=== PATIENT | female | born 1955 | race Caucasian/White ===

== ENCOUNTER 2020-03-06 02:56 | Inpatient (IN) | payer OTHER ==
[2020-03-06] MEDS ORDERED: PROPOFOL 20 ML ONE (03:06)
[2020-03-06 03:18] LABS: #Basophils 0.1 thou/uL (0.0-0.2); #Eosinphils 0.1 thou/uL (0.0-0.7); #Monocytes 0.6 thou/uL (0.11-0.59); #Neutrophils 13.2 thou/uL (1.40-6.50); %Basophils 0.5 % (0.0-1.0); %Eosinophils 0.7 % (0.0-10.0); %Lymphocytes 12.3 % (21.0-51.0); %Monocytes 3.6 % (0.0-10.0); %Neutrophils 82.9 % (42.0-75.0); Hemoglobin 12.3 g/dL (12.0-16.0); Mean Corpuscular HGB CONC 30.7 g/dL (32.0-36.0); Mean Corpuscular Hemoglobin 23.2 pg (27.0-31.0); Mean Corpuscular Volume 75.6 fL (78.0-98.0); Mean Platelet Volume 8.1 fL (7.4-10.4); Platelet Count 462 thou/uL (130-400); RBC Distribution Width 17.4 % (11.5-14.5); White Blood Cell (WBC) Count 15.9 thou/uL (4.8-10.8)
[2020-03-06 03:32] LABS: Actual Bicarbonate (HCO3a) 26.3 mEq/L (22-28); Analyzer IN Cardio ER; Base Excess (BEa) -3.3 mEq/L (-2.0 to +3.0); Calcium, Ionized 1.17 mmol/L (1.12-1.30); Carboxyhemoglobin (COHb) 1.8 gm% (0.0-3.0); Hemoglobin (Hb) 12.9 g/dL (12.0-16.0); O2 Tension (PaO2), arterial 84.9 mmHg (> 80.0); Potassium - ABG Lab 3.77 mmol/L (3.70-5.30)
[2020-03-06 03:33] LABS: ALT (SGPT) 33 U/L (8-55); AST (SGOT) 44 U/L (5-34); Albumin 3.6 g/dL (3.4-4.8); Alkaline Phosphatase 85 U/L (40-110); Anion Gap 18 mmol/L (10-20); BUN (Urea Nitrogen) 12 mg/dL (9.8-20.1); Bilirubin, Total 1.1 mg/dL (0.2-1.2); Calc. Creatinine Clearance 0 mL/min (70-130); Calcium 8.8 mg/dL (7.8-10.44); Carbon Dioxide 22 mmol/L (23-31); Chloride 97 mmol/L (98-107); Estimated GFR-MDRD 77; Globulin 3.3 g/dL (2.4-3.5); Glucose 297 mg/dL (80-115); Potassium 3.7 mmol/L (3.5-5.1); Protein, Total 6.9 g/dL (6.0-8.3); Sodium 133 mmol/L (136-145)
[2020-03-06 03:39] LABS: ALV-art Gradient 325.575 (0-20); CO2 Tension 70.9 mmHg (35.0-45.0); Puncture Site RRA; pH, Arterial 7.19 (7.35-7.45)
[2020-03-06] MEDS ORDERED: Furosemide 40 MG/4 ML VIAL ONE (03:47)
[2020-03-06] MEDS ORDERED: Nitroglycerin 2% Ointment 1 INCH/1 GM Packet ONE (03:47)
[2020-03-06] MEDS ORDERED: Aspirin 300 MG Suppository ONE (03:47)
[2020-03-06] MEDS ORDERED: Morphine 2 MG/ML SYRINGE SLOW IVP PRN ×3 (04:04→14:58)
[2020-03-06] MEDS ORDERED: cloNIDine 0.1 MG TAB PO PRN (04:04)
[2020-03-06] MEDS ORDERED: Ondansetron PF 4 MG/2 ML Vial IVP PRN (04:04)
[2020-03-06] MEDS ORDERED: hydrALAZINE 20 MG/ML VIAL SLOW IVP PRN (04:04)
[2020-03-06] MEDS ORDERED: Promethazine HCl 12.5 MG in Sodium Chloride 0.9% 50 ML IVPB PRN (04:04)
[2020-03-06] MEDS ORDERED: Labetalol HCl 100 MG/20 ML VIAL SLOW IVP PRN (04:04)
[2020-03-06] MEDS ORDERED: Acetaminophen 325 MG TAB PO PRN (04:05)
[2020-03-06] MEDS ORDERED: Bisacodyl 10 MG SUPP PR PRN (04:05)
[2020-03-06] MEDS ORDERED: HYDROcodone/Acetaminophen 5/325 mg Tablet PO PRN (04:05)
[2020-03-06] MEDS ORDERED: Bisacodyl 5 MG TAB PO PRN (04:05)
[2020-03-06] MEDS ORDERED: Senokot S 8.6-50 MG TAB PO PRN (04:05)
[2020-03-06] MEDS ORDERED: Insulin Regular 300 UNITS/3 ML VIAL SC PRN (04:07)
[2020-03-06] MEDS ORDERED: CCU Electrolyte Replacement 1 EACH IVPB ONE (04:07)
[2020-03-06] MEDS ORDERED: Milk Of Magnesia 30 ML UDCUP PO PRN (04:07)
[2020-03-06] MEDS ORDERED: Norepinephrine 8 MG/0.9% NS 250 ML IVPB PRN (04:07)
[2020-03-06] MEDS ORDERED: Mag-Al 1200 mg/1200 mg/30 ML UDCUP PO PRN (04:07)
--- NOTE | 2020-03-06 04:11 | PDOC.HHP ---
Hospitalist HPI - History of Present Illness Respiratory failure History of Present Illness: Patient is a 64 year old female with PMH HTN, DM, COPD who presented to ED via EMS for shortness of breath which began appx 30-60 minutes before arrival. On arrival, EMS found her in respiratory distress in tripod position and intubated her, saturations were in low 70s. In ED, ABG w/ hypercapneia, lung auscultation w/ prolonged expiratory phase and wheezing, patient sats improved however and BP /HR wnl. She had some pedal edema, no history of heart failure, tni elevated, given asa, lasix. Initial temperature 95.7, leukocytosis noted as well. Patient has had no fever, cough, or COVID exposure. CXR consistent with CHF and pulmonary edema, BNP is elevated, and her troponin is elevated. Patient given Lasix and Nitropaste as well as rectal aspirin. Patient admitted to CCU for presumed COPD/CHF exacerbation with possible infectious underlying etiology. Hospitalist ROS - Review of Systems ROS unobtainable: due to endotracheal tube Hospitalist History - Past Medical History Other Medical History: DM HTN COPD - Past Surgical History Other Surgical History: unable to ascertain at this time due to intubated status - Family History Other Family History: unable to ascertain at this time due to intubated status - Social History Other Social History: unable to ascertain at this time due to intubated status - Exam General - other findings: intubated, sedated Eye: PERRL, anicteric sclera ENT: normocephalic atraumatic, no oropharyngeal lesions, moist mucosa ENT - other findings: et tube in place Neck: supple, no JVD Heart: RRR, no murmur, no gallops, no rubs Respiratory: wheezes Respiratory - other findings: prolonged expiratory phase Gastrointestinal: soft, non-tender, non-distended, normal bowel sounds, no palpable masses Extremities: no cyanosis, no clubbing, 2+ LE edema Skin: normal turgor, no lesions, no rashes Neurological - other findings: unable to evaluate Musculoskeletal: normal tone, no muscle wasting Psychiatric - other findings: unable to evaluate Hospitalist Results - Labs Result Diagrams: 03/06/20 03:06 03/06/20 03:06 Lab results: WBC 15.9 thou/uL (4.8-10.8) H 03/06/20 03:06 Hgb 12.3 g/dL (12.0-16.0) 03/06/20 03:06 Hct 40.0 % (36.0-47.0) 03/06/20 03:06 MCV 75.6 fL (78.0-98.0) L 03/06/20 03:06 Plt Count 462 thou/uL (130-400) H 03/06/20 03:06 Neutrophils % 82.9 % (42.0-75.0) H 03/06/20 03:06 ABG pH 7.19 (7.35-7.45) L* 03/06/20 03:13 ABG pCO2 70.9 mmHg (35.0-45.0) H* 03/06/20 03:13 ABG pO2 84.9 mmHg (> 80.0) H 03/06/20 03:13 Sodium 133 mmol/L (136-145) L 03/06/20 03:06 Potassium 3.7 mmol/L (3.5-5.1) 03/06/20 03:06 Chloride 97 mmol/L (98-107) L 03/06/20 03:06 Carbon Dioxide 22 mmol/L (23-31) L 03/06/20 03:06 BUN 12 mg/dL (9.8-20.1) 03/06/20 03:06 Creatinine 0.76 mg/dL (0.6-1.1) 03/06/20 03:06 Glucose 297 mg/dL (80-115) H 03/06/20 03:06 Lactic Acid 1.6 mmol/L (0.5-2.2) 03/06/20 03:06 Calcium 8.8 mg/dL (7.8-10.44) 03/06/20 03:06 Total Bilirubin 1.1 mg/dL (0.2-1.2) 03/06/20 03:06 AST 44 U/L (5-34) H 03/06/20 03:06 ALT 33 U/L (8-55) 03/06/20 03:06 Alkaline Phosphatase 85 U/L (40-110) 03/06/20 03:06 Troponin I 0.092 ng/mL (< 0.028) H 03/06/20 03:06 B-Natriuretic Peptide 1216.5 pg/mL (0-100) H 03/06/20 03:06 Serum Total Protein 6.9 g/dL (6.0-8.3) 03/06/20 03:06 Albumin 3.6 g/dL (3.4-4.8) 03/06/20 03:06 - EKG Interpretation EKG: rate 105, sinus tachycardia, nonspecific t wave changes and iv block, PVCs noted Hospitalist H&P A/P - Plan Plan: 64F admitted for: # acute hypoxic and hypercapneic respiratory failure # COPD exacerbation # acute CHF - admit to CCU, consult pulmonary, sedation protocol - start scheduled/prn neb treatments, antibiotics empiric and IV steroids - trend troponin, continue aspirin and statin/beta luanne, echo ordered as well , consider cardiology consult if significant abnormalities - follow final CTa chest report. DVT ppx dose lovenox for now # DM w/ hyperglycemia - SSI, resume home meds as appropriate once extubated # HTN - PRN medications in chart # elevated troponin - trend, treat as above, continue aSA/statin, hold beta luanne for acute chf # hypothermia, sepsis - presume respiratory etiology, follow UA, will order blood cultures, empiric azithromycin and ceftraixone ordered 55 minutes critical care time
[2020-03-06] MEDS ORDERED: Dextrose 5% in Water 1,000 ML IV PRN (04:13)
[2020-03-06] MEDS ORDERED: Dextrose 50% Abboject 50 ML SYRINGE SLOW IVP PRN (04:13)
[2020-03-06 04:14] LABS: CKMB 7.5 ng/mL (0-6.6)
[2020-03-06] MEDS ORDERED: Azithromycin 500 MG in Syringe 0 ML IVPB SCH (04:15)
[2020-03-06] MEDS ORDERED: Ventilator Sedation Protocol 1 EACH FS SCH (04:15)
[2020-03-06] MEDS ORDERED: Furosemide 40 MG/4 ML VIAL SLOW IVP SCH (04:15)
[2020-03-06] MEDS ORDERED: Fentanyl BOLUS 250 ML IVPB PRN (04:16)
[2020-03-06] MEDS ORDERED: Propofol BOLUS 1,000 MG/100 ML VIAL IV PRN (04:16)
[2020-03-06] MEDS ORDERED: DISCONTINUE PREVIOUS NARCOTIC PAIN MEDICATIONS AND BENZODIAZEPINES FS SCH (04:17)
[2020-03-06] MEDS ORDERED: CCU ELECTROLYTE REPLACEMENT PROTOCOL FS PRN (04:18)
[2020-03-06] MEDS ORDERED: Potassium Phosphate 15 MMOL in Sodium Chloride 0.9% 250 ML 250 ML IV PRN (04:18)
[2020-03-06] MEDS ORDERED: Potassium Phosphate 9 MMOL in Sodium Chloride 0.9% 100 ML IVPB PRN (04:18)
[2020-03-06] MEDS ORDERED: Magnesium 2 GM/50 ML 2 GM in Premix Bag 1 BAG IVPB PRN (04:18)
[2020-03-06] MEDS ORDERED: Magnesium Oxide 400 MG TAB PO PRN ×2 (04:18)
[2020-03-06] MEDS ORDERED: Potassium Chloride 20 MEQ TAB PO PRN (04:18)
[2020-03-06] MEDS ORDERED: PHOS-NAK 1 PKT PACK PO PRN ×2 (04:18)
[2020-03-06] MEDS ORDERED: Potassium Chloride 40 MEQ in Sodium Chloride 0.9% 250 ML 250 ML IVPB PRN (04:18)
[2020-03-06] MEDS ORDERED: Potassium Chloride 40 MEQ in Premix Bag 1 BAG IVPB PRN (04:18)
[2020-03-06] MEDS ORDERED: Potassium Phosphate 12 MMOL in Sodium Chloride 0.9% 250 ML 250 ML IV PRN (04:18)
[2020-03-06] MEDS ORDERED: Ketamine 50 MG/ML (10ML VIAL) ONE (04:29)
[2020-03-06 04:35] LABS: Bacteria/HPF None Seen HPF (None Seen); Bilirubin Negative (Negative); Blood, Urine 1+ (Negative); Clarity Turbid (Clear); Glucose, Urine (Dipstick) 500 mg/dL (Negative); Leukocyte Negative Leu/uL (Negative); Nitrite Negative (Negative); Protein, Urine (Dipstick) 200 mg/dL (Neg-Trace); Squamous Epithelial 0-3 HPF (0-3)
[2020-03-06] MEDS: Propofol 1,000 MG/100 ML VIAL IV PRN (04:59)
[2020-03-06] MEDS: cefTRIAXone\\ROCEPHIN 1 GM in Sodium Chloride 0.9% 100 ML IVPB SCH (05:03)
[2020-03-06] MEDS: HumaLOG 300 UNITS/3 ML VIAL SC PRN ×4 (06:00→21:14)
[2020-03-06] MEDS: Furosemide 20 MG/2 ML VIAL SLOW IVP SCH ×2 (06:00→14:04)
[2020-03-06] MEDS: methylPREDNISolone Sod Succ/PF 125 MG/2 ML VIAL IVP SCH ×3 (06:00→21:14)
[2020-03-06] MEDS: Azithromycin 500 MG in Sodium Chloride 0.9% 250 ML 250 ML IVPB SCH (06:12)
[2020-03-06] MEDS: Lorazepam 2 MG/ML VIAL SLOW IVP PRN ×4 (06:39→14:28)
--- NOTE | 2020-03-06 07:44 | RAD ---
EXAM: CHEST ONE VIEW HISTORY: Dyspnea. COMPARISON: 02/22/2007 FINDINGS: endotracheal tube is noted in place with tip overlying the T4 vertebral body and above the level of t he katlyn. Nasogastric tube noted in place which courses into the left upper quadrant. Bibasilar pleural and parenchymal lung changes are seen greater at the right lung base which may be related to bilateral pleural effusions and atelectasis. However, superimposed pneumonia at the right lung base is a possibility. Oval-shaped opacity is seen in the region of the right midlung zone which may repre sent pseudotumor due to fluid in the region of the major fissure. Linear densities are seen in the left midlung zone probably attributable to atelectasis. Right cardiac border is obscured, but the car diac silhouette does appear enlarged. Osseous structures have a normal appearance. IMPRESSION: 1. Bibasilar pleural and parenchymal lung changes greater at the right lung base likely attributable to bilateral pleural effusions and atelectasis. However, superimposed infiltrate/pneumonia right lung base is a possibility. 2. Cardiomegaly. 3. Endotracheal tube and nasogastric tube noted in place.
--- NOTE | 2020-03-06 07:53 | CT ---
PRELIMINARY REPORT/[facility]/EMERGENCY AFTER HOURS PROCEDURE PROCEDURE: CTA Chest with IV Contrast Material . HISTORY: Dyspnea. TECHNIQUE: Axial images were performed with multiplanar and 3-D (maximum intensity projection and justo face-shaded) reconstructions. The patient was given iodinated nonionic IV contrast . COMPARISON: None . FINDINGS: Mild atherosclerosis aorta with no aneurysm or dissection. No evidence of pulmonary embolus . Scattered prominent mediastinal and hilar lymph nodes bilaterally. Endotracheal and NG tube in keya ce. Heart size upper limits of normal with no pericardial fluid. Dense consolidation RIGHT lower midd le lobe consistent with pneumonia. Mild consolidation LEFT lower lobe with some atelectasis. Small bilateral pleural effusions and fluid in the major fissure on the RIGHT. No pulmonary masses. Visual ized upper abdomen shows no significant abnormality. No acute bony abnormality. IMPRESSION: No pulmonary embolus or aortic dissection. Mild mediastinal and hilar lymphadenopathy. He art size upper limits of normal. Bilateral pneumonia greatest on the RIGHT with bilateral pleural eff usions. ELECTRONICALLY SIGNED BY: Isidro Murphy MD March 06, 2020 5:09:26 AM CDT FINAL REPORT CT PULMONARY ANGIOGRAM WITH IV CONTRAST AND 3D POSTPROCESSING: I agree with the preliminary report given by Dr. Isidro Murphy of [facility]. POS: TANIA
[2020-03-06 08:07] LABS: Actual Bicarbonate (HCO3a) 27.7 mEq/L (22-28); Base Excess (BEa) -0.4 mEq/L (-2.0 to +3.0); CO2 Tension 62.8 mmHg (35.0-45.0); O2 Tension (PaO2), arterial 66.4 mmHg (> 80.0); pH, Arterial 7.26 (7.35-7.45)
[2020-03-06 08:08] LABS: Calcium, Ionized 1.14 mmol/L (1.12-1.30); Carboxyhemoglobin (COHb) 2.2 gm% (0.0-3.0); Hemoglobin (Hb) 12.2 g/dL (12.0-16.0)
[2020-03-06 08:09] LABS: Puncture Site LRA
[2020-03-06] MEDS ORDERED: Enoxaparin Sodium 40 MG/0.4 ML SYRINGE SC SCH (09:00)
[2020-03-06] MEDS ORDERED: Aspirin 300 MG Suppository PR SCH (09:00)
--- NOTE | 2020-03-06 09:12 | CON ---
DATE OF CONSULTATION: 03/06/2020 CONSULTING PHYSICIAN: Dr. Olson. REASON FOR CONSULTATION: Respiratory failure related to pneumonia. HISTORY OF PRESENT ILLNESS: History of present illness what I have is obtained from reviewing her records as the patient is currently intubated, cannot give me a history. She is 64 years old. She presented to the emergency room with shortness of breath earlier this morning. She was intubated for hypoxemia. She was found to have bilateral pneumonia and pulmonary physiology consistent with COPD exacerbation. She was not initially isolated for COVID, but I have taken the steps to do that and they ordered the test to rule her out since she has bilateral pneumonia. PAST MEDICAL HISTORY: 1. Diabetes mellitus. 2. Hypertension. 3. COPD. PAST SURGICAL HISTORY: Not known. FAMILY MEDICAL HISTORY: Not known. SOCIAL HISTORY: Assume that she is a smoker in the past, although that has not been confirmed. MEDICATIONS: Prior to admission; 1. Aspirin 81 mg daily. 2. Flexeril 10 mg daily. 3. Norvasc 10 mg daily. 4. Xanax 0.5 mg every night as needed. 5. Metformin 500 mg daily. 6. Hydrochlorothiazide 25 mg daily. 7. Glipizide XL 5 mg daily. REVIEW OF SYSTEMS: Cannot be obtained as she is currently on mechanical ventilation. PHYSICAL EXAMINATION: VITAL SIGNS: Her temperature is 96.0, pulse 79, blood pressure 96/61, O2 saturation 95%. GENERAL: She is a disheveled-appearing female, who is currently intubated and sedated. HEENT: Pupils are 2 mm and reactive to light. Sclerae anicteric. Oropharynx, ET tube in place. NECK: No adenopathy or JVD. LUNGS: She has bilateral tight expiratory wheezing. She has crackles in the bases. CARDIOVASCULAR: S1, S2. Regular without audible murmur. ABDOMEN: Soft, obese, nontender, and nondistended. EXTREMITIES: No clubbing, cyanosis, or edema. NEUROLOGIC: Difficult to ascertain because she is sedated and is not moving to stimulation. LABORATORY DATA: Sodium 133, potassium 3.7, chloride 97, CO2 of 22, BUN 12, creatinine 0.7, glucose 297. Troponin 0.92. Lactate 1.6. BNP 1216. ABG; pH 7.26, pCO2 of 63, pO2 of 66, on SIMV rate 18, tidal volume 455, pressure support of 10, and FiO2 of 60%. White blood cell count 15.9, hematocrit 40, and platelet count 462 with a left shift. D-dimer was 2.09. IMAGING DATA: CT of the chest demonstrates bilateral small pleural effusions, she has dense pneumonia on the right, she has some pneumonia on the left. She had no evidence of thromboembolic disease. ASSESSMENT: This patient is presenting with bilateral pneumonia along with respiratory failure. She also is clearly having bronchospasm and COPD exacerbation. Her elevated BNP suggest concurrent heart failure. RECOMMENDATION: 1. Given the appearance of bilateral pneumonia and respiratory failure with severe hypoxemia, she does need to be ruled out for COVID-19 infection, therefore that test will be sent. 2. Steroids, nebulization treatments, antibiotics. 3. I have adjusted her ventilator parameters. We will follow. Job ID: [id number]
[2020-03-06] MEDS ORDERED: Iopamidol 370 76% 100 ML VIAL ONE (09:48)
[2020-03-06 13:35] LABS: Troponin I 0.222 ng/mL (< 0.028)
[2020-03-06 13:49] LABS: Actual Bicarbonate (HCO3a) 29.3 mEq/L (22-28); Base Excess (BEa) 1.7 mEq/L (-2.0 to +3.0); Calcium, Ionized 1.16 mmol/L (1.12-1.30); Carboxyhemoglobin (COHb) 1.3 gm% (0.0-3.0); Hemoglobin (Hb) 11.7 g/dL (12.0-16.0); O2 Tension (PaO2), arterial 77.3 mmHg (> 80.0); Potassium - ABG Lab 4.33 mmol/L (3.70-5.30)
[2020-03-06 13:52] LABS: ALV-art Gradient 380.825 (0-20); CO2 Tension 61.3 mmHg (35.0-45.0); Puncture Site LRA
[2020-03-06] MEDS: Vecuronium 10 MG VIAL IVP PRN ×4 (15:36→22:10)
[2020-03-06] MEDS: fentaNYL Citrate/PF 2,000 MCG in Sodium Chloride 0.9% 60 ML IV SCH (17:05)
[2020-03-06 18:34] LABS: Troponin I 0.306 ng/mL (< 0.028)
[2020-03-06 18:35] LABS: SARS-CoV-2 MS2 Positive; SARS-CoV-2 N Gene Negative; SARS-CoV-2 S Gene Negative; SARS-CoV-2 orf1ab Negative
--- NOTE | 2020-03-06 19:31 | PDOC.EVN ---
Event Note - Event Note Event Note: Patient is intubated. Sedation weaning was attempted but patient did not tolerate it per nursing staff. She had an episode of bronchospasm and tachycardia which improved after receiving albuterol through the ventilator. SHe does have edema per nursing and got lasix Not examined earlier since COVID was pending Gen: intubated, sedated CVS: tachycardic Lungs: wheezing per nursing Abd: not distended EXt: 1+ edemea Labs: WBC 15 Sodium 133 Troponin: up to 0.3 Glucose > 200 Xray: bilateral pneumonia This is 64 year old female who presents with respiratory failure requiring intubation Acute hypoxic respiratory failure secondary to bilateral pneumonia vs heart failure vs COPD exacerbation - chest Xray showing bilateral pneumonia. COVID 19 negative. - continue ceftriaxone and azithromycin - troponin trending up 0.306. - ECHO Shows EF 35-40% with inferolateral wall hypokinesis. Continue IV lasix. Repeat EKG - continue IV steroids - cardiology consult - will add therapeutic lovenox Hyponatremia - soduim 133, will continue to monitor DVT prophylaxis: lovenox Code status: full code
[2020-03-06] MEDS ORDERED: Enoxaparin Sodium 100 MG/ML SYRINGE SC SCH (21:00)
[2020-03-06] MEDS: Atorvastatin Calcium 40 MG TAB PO SCH (21:13)
[2020-03-06] MEDS: Insulin Glargine 7 UNITS in Pre-Filled Syringe SC SCH (21:13)
[2020-03-07] MEDS: Vecuronium 10 MG VIAL IVP PRN ×2 (00:49→06:10)
[2020-03-07 03:58] LABS: #Lymphocytes 0.8 thou/uL (1.20-3.40); #Monocytes 0.3 thou/uL (0.11-0.59); #Neutrophils 8.5 thou/uL (1.40-6.50); %Basophils 0.2 % (0.0-1.0); %Monocytes 2.7 % (0.0-10.0); Hemoglobin 10.9 g/dL (12.0-16.0); Mean Corpuscular HGB CONC 31.3 g/dL (32.0-36.0); Mean Corpuscular Hemoglobin 23.3 pg (27.0-31.0); Mean Corpuscular Volume 74.4 fL (78.0-98.0); Mean Platelet Volume 8.4 fL (7.4-10.4); Platelet Count 415 thou/uL (130-400); RBC Distribution Width 17.1 % (11.5-14.5); Red Blood Cell (RBC) Count 4.69 mill/uL (4.20-5.40); White Blood Cell (WBC) Count 9.6 thou/uL (4.8-10.8)
[2020-03-07] MEDS: cefTRIAXone\\ROCEPHIN 1 GM in Sodium Chloride 0.9% 100 ML IVPB SCH (04:19)
[2020-03-07 04:20] LABS: Anion Gap 18 mmol/L (10-20); Calc. Creatinine Clearance 69 mL/min (70-130); Calcium 8.8 mg/dL (7.8-10.44); Carbon Dioxide 25 mmol/L (23-31); Chloride 95 mmol/L (98-107); Estimated GFR-MDRD 45; Glucose 236 mg/dL (80-115); Magnesium 2.1 mg/dL (1.6-2.6); Potassium 4.5 mmol/L (3.5-5.1); Sodium 133 mmol/L (136-145)
[2020-03-07] MEDS: HumaLOG 300 UNITS/3 ML VIAL SC PRN ×4 (04:26→21:15)
[2020-03-07] MEDS: Azithromycin 500 MG in Sodium Chloride 0.9% 250 ML 250 ML IVPB SCH (05:08)
[2020-03-07] MEDS: methylPREDNISolone Sod Succ/PF 125 MG/2 ML VIAL IVP SCH ×3 (05:09→21:18)
[2020-03-07] MEDS: Furosemide 20 MG/2 ML VIAL SLOW IVP SCH (05:09)
[2020-03-07] MEDS: Propofol 1,000 MG/100 ML VIAL IV PRN ×2 (06:02→15:00)
[2020-03-07 06:52] LABS: Actual Bicarbonate (HCO3a) 28.1 mEq/L (22-28); Base Excess (BEa) 0.2 mEq/L (-2.0 to +3.0); CO2 Tension 59.8 mmHg (35.0-45.0); Calcium, Ionized 1.18 mmol/L (1.12-1.30); Hemoglobin (Hb) 13.9 g/dL (12.0-16.0); O2 Tension (PaO2), arterial 74.7 mmHg (> 80.0); Potassium - ABG Lab 4.69 mmol/L (3.70-5.30); pH, Arterial 7.29 (7.35-7.45)
[2020-03-07 07:07] LABS: Puncture Site RRAD
--- NOTE | 2020-03-07 07:46 | PRG ---
DATE OF SERVICE: 03/07/2020 A 35 minutes of critical care time. SUBJECTIVE: This patient remains intubated on mechanical ventilation. We have seen no gross improvement overnight. Her interval reports overnight showed an echocardiogram with EF of 35% to 40%. OBJECTIVE: VITAL SIGNS: Temperature 98.5, pulse 106, blood pressure 129/82, O2 saturation 93%. She is no longer on the Levophed drip. Her 24 intake was 528 and output 843. GENERAL: She seems to be following a few commands. She is very twitchy with her extremities. HEENT: Otherwise, unremarkable. NECK: No JVD. LUNGS: No active wheezing, but she has diminished breath sounds bilaterally. CARDIOVASCULAR: S1 and S2. Regular to tachycardic with no audible murmur. ABDOMEN: Soft and nontender. EXTREMITIES: No clubbing or cyanosis. She has trace edema throughout. LABORATORY DATA: Sodium 133, potassium 4.5, chloride 95, CO2 of 25, BUN 32, creatinine 1.2, and glucose 236. Troponin 0.306. ABG; pH of 7.29, pCO2 of 60, pO2 of 74 on SIMV rate 22, tidal volume 450, PEEP 5, pressure support 10, and FiO2 of 75%. White count 9.6, hematocrit 34.9, and platelet count 415. Her x-ray shows bilateral effusions and pulmonary edema. ET tube is in good position. ASSESSMENT: Clinical picture is looking more like systolic heart failure. She has been ruled out for COVID-19 infection. We were worried about concurrent bronchospasm suggesting a concurrent chronic obstructive pulmonary disease exacerbation. PLAN: I have adjusted her ventilator setting somewhat. She was not ready to wean today. I will reduce her steroid dose and increase her Lasix dose. We will have to watch her BUN and creatinine closely as they have bumped up compared to yesterday. I do not see any indication for high-dose Lovenox, so we will lower back the therapeutic dose. I would consider Cardiology consultation. I would anticipate her being intubated for several more days. Job ID: [id number]
--- NOTE | 2020-03-07 07:54 | RAD ---
RADIOGRAPH CHEST 1 VIEW: DATE: 03/07/2020 TIME: 4:12 AM HISTORY: 64-year-old female with pneumonia COMPARISON: 03/06/2020 FINDINGS: Endotracheal tube and esophagogastric tube remain. Bilateral pleural effusions, right greater than le ft. Bibasilar consolidations. No pneumothorax identified. Apparent interval worsening of haziness in right mid and lower lung zones could represent shifting or receding right pleural effusion reveali ng more of the underlying poorly aerated right lower lung zone. Opacification of the left base appears worse. Pulmonary venous congestion. IMPRESSION: 1. Interval worsening of aeration of left lung base. 2. Interval change in opacification of right mid and lower lung zones. See above comments. 3. Congestive heart failure with bilateral pleural effusions.
[2020-03-07] MEDS: fentaNYL Citrate/PF 2,000 MCG in Sodium Chloride 0.9% 60 ML IV SCH ×2 (08:40→18:25)
[2020-03-07] MEDS ORDERED: Furosemide 40 MG/4 ML VIAL SLOW IVP SCH (09:00)
[2020-03-07] MEDS ORDERED: Sacubitril 24.5 MG/Valsartan 25.5 MG TABLET PO SCH (09:00)
[2020-03-07] MEDS ORDERED: Spironolactone 25 MG TAB PO SCH (09:05)
[2020-03-07] MEDS: Enoxaparin Sodium 40 MG/0.4 ML SYRINGE SC SCH (09:16)
[2020-03-07] MEDS: Aspirin 81 mg Enteric Coated Tablet PO SCH (09:16)
[2020-03-07] MEDS: Furosemide 40 MG/4 ML VIAL SLOW IVP SCH ×2 (09:16→21:16)
--- NOTE | 2020-03-07 15:05 | CON ---
DATE OF CONSULTATION: TIME SPENT: Critical care time 45 minutes. HISTORY OF PRESENT ILLNESS: The patient is a 64-year-old woman who presented with progressive respiratory failure and was noted to have an elevated troponin level. The patient is intubated and sedated. She has previously had a history of COPD. The patient presented to the emergency room apparently yesterday with respiratory failure. She was emergently intubated. The patient is in the ICU and was noted to have an elevated troponin level. PAST MEDICAL HISTORY: 1. COPD. 2. Diabetes mellitus. 3. Hypertension. PAST SURGICAL HISTORY: SOCIAL HISTORY: Long history of tobacco abuse. MEDICATIONS: 1. Aspirin 81 daily. 2. Flexeril 10 daily. 3. Norvasc 10 daily. 4. Metformin 500 nightly. 5. Hydrochlorothiazide 25 daily. 6. Glipizide 5 daily. ALLERGIES: MORPHINE AND SULFA DRUGS. PHYSICAL EXAMINATION: GENERAL: This is an intubated woman who is sedated. VITAL SIGNS: With a blood pressure of 119/73. NECK: Full. LUNGS: Have crackles in both bases. HEART: Regular rate and rhythm. Normal S1 with a 1/6 systolic murmur. ABDOMEN: Distended. EXTREMITIES: Mild bilateral edema. LABORATORY RESULTS: Sodium 133, potassium 4.5, chloride 95, bicarbonate 25, BUN 32, creatinine 1.2, and glucose was 236. Troponin was 0.3. White blood cell count 9.6, hemoglobin 10.9, hematocrit 34.9, and platelets 415. Troponin was 0.306. Chest x-ray revealed cardiomegaly with bilateral pulmonary congestion and pleural effusions. T EKG revealed normal sinus rhythm, poor R-wave progression, suggestive of previous anterior infarct. Echocardiogram revealed a moderate decreased left ventricular ejection fraction, 35% to 40% with a markedly dilated left ventricle and inferolateral wall hypokinesis. IMPRESSION: 1. Congestive heart failure. 2. Cardiomyopathy. 3. Elevated troponin level, probably secondary to demand ischemia. 4. Pneumonia. 5. Diabetes mellitus. 6. Obesity. 7. Tobacco abuse. PLAN: This patient presents with congestive heart failure. She has a marked reduction in left ventricular systolic function. The patient is being diuresed with Lasix. I would recommend adding spironolactone for its known benefit in patients with class IV congestive heart failure. The patient will also be started on Entresto for its survival benefits in patients with cardiomyopathy. The patient is being treated with aspirin and lipid-lowering medication. We will follow this patient with you through her hospitalization. Job ID: [id number] MTDD
--- NOTE | 2020-03-07 15:18 | PDOC.HOSPP ---
- Subjective Encounter Date: 03/07/20 Encounter Time: 14:00 Subjective: The patient is intubated. SHe is following commands, states she wants to write something. She has no SOB or chest pain. REports she was using her inhalers at home. She states she does smoke - Objective Vital Signs & Weight: Vital Signs (12 hours) Temp Pulse Pulse Pulse Resp BP BP 03/07/20 14:24 92 03/07/20 14:23 108 H 17 03/07/20 14:00 23 H 03/07/20 12:00 23 H 03/07/20 11:48 98.0 F 03/07/20 10:31 93 03/07/20 10:30 93 22 H 03/07/20 10:00 22 H 03/07/20 09:13 102 H 115 H 123/74 146/89 H 03/07/20 08:00 98.1 F 24 H 03/07/20 07:11 118 H 22 H 03/07/20 07:10 124 H 03/07/20 06:00 22 H 03/07/20 04:00 22 H Pulse Ox Pulse Ox Pulse Ox 03/07/20 14:24 03/07/20 14:23 92 L 03/07/20 14:00 03/07/20 12:00 03/07/20 11:48 03/07/20 10:31 03/07/20 10:30 93 L 03/07/20 10:00 03/07/20 09:13 93 L 90 L 03/07/20 08:00 93 L 03/07/20 07:11 99 03/07/20 07:10 03/07/20 06:00 03/07/20 04:00 Weight Admit Weight 204 lb Weight 208 lb 8.917 oz Most Recent Monitor Data Heart Rate from ECG 93 NIBP 102/59 NIBP BP-Mean 73 Respiration from ECG 22 SpO2 94 I&O: 03/06/20 03/07/20 03/08/20 06:59 06:59 06:59 Intake Total 101.6 600.6 150 Output Total 65 843 305 Balance 36.6 -242.4 -155 Result Diagrams: 03/07/20 03:09 03/07/20 03:09 Additional Labs: Accuchecks 03/07/20 03/06/20 03/06/20 10:15 20:39 17:14 POC Glucose 307 H 163 H 221 H Hospitalist ROS - Review of Systems Constitutional: denies: fever, chills - Medication Medications: Active Medications Generic Name Dose Route Start Last Admin Trade Name Freq PRN Reason Stop Dose Admin Albuterol/Ipratropium 3 ml 03/06/20 06:30 03/07/20 14:23 Duoneb NEB 3 ml [id number] RALPH Administration Aspirin 81 mg 03/07/20 09:00 03/07/20 09:16 Ecotrin PO 81 mg DAILY RALPH Administration Atorvastatin Calcium 40 mg 03/06/20 21:00 03/06/20 21:13 Lipitor PO 40 mg HS RALPH Administration Enoxaparin Sodium 40 mg 03/07/20 09:00 03/07/20 09:16 Lovenox SC 40 mg 0900 RALPH Administration Furosemide 40 mg 03/07/20 09:00 03/07/20 09:16 Lasix SLOW IVP 40 mg BID RALPH Administration Fentanyl Citrate 2,000 mcg/ 100 mls @ 0 mls/hr 03/06/20 03:09 03/07/20 08:40 Sodium Chloride IV 04/05/20 03:09 100 mls INF RALPH Administration Protocol Per Protocol Ceftriaxone Sodium 1 gm/ 100 mls @ 200 mls/hr 03/06/20 05:00 03/07/20 04:19 Sodium Chloride IVPB 100 mls Q24HR RALPH Administration Azithromycin 500 mg/ Sodium 250 mls @ 250 mls/hr 03/06/20 06:00 03/07/20 05: 08 Chloride IVPB 250 mls Q24HR RALPH Administration Insulin Glargine 7 units/ 0.07 mls @ 0 mls/hr 03/06/20 21:00 03/06/20 21:13 Miscellaneous Medication SC 0.07 mls HS RALPH Administration Insulin Human Lispro 0 units 03/06/20 04:13 03/07/20 10:12 Humalog SC 8 unit .MODERATE SLIDING SC PRN Administration Moderate Correctional Scale Lorazepam 2 mg 03/06/20 04:16 03/06/20 14:28 Ativan SLOW IVP 04/05/20 04:16 2 mg Q1H PRN Administration Breakthrough agitation Methylprednisolone Sodium Succinate 20 mg 03/07/20 14:00 03/07/20 14:01 Solu-Medrol IVP 20 mg Q8HR RALPH Administration Pantoprazole Sodium 40 mg 03/06/20 09:00 03/07/20 09:16 Protonix PO 40 mg DAILY RALPH Administration Propofol 1,000 mg 03/06/20 04:16 03/07/20 15:00 Diprivan IV 04/05/20 04:16 1,000 mg INF PRN Administration TO ACHIEVE GOAL RASS Protocol Sacubitril/Valsartan 1 tab 03/07/20 09:00 03/07/20 10:10 Entresto 24 Mg-26 Mg Tablet PO 1 tab BID RALPH Administration Vecuronium Pinson 10 mg 03/06/20 14:48 03/07/20 06:10 Norcuron IVP 10 mg Q30MIN PRN Administration Agitation - Exam General Appearance: NAD, awake alert General - other findings: intubated Eye: PERRL, anicteric sclera ENT: normocephalic atraumatic, no oropharyngeal lesions Neck: supple, no JVD Heart: RRR, no murmur, no gallops, no rubs Respiratory: CTAB, no wheezes, no rales, no ronchi Gastrointestinal: soft, non-tender, non-distended, normal bowel sounds Extremities: 1+ LE edema Skin: normal turgor, no lesions, no rashes Hosp A/P - Plan Chest X ray: worsening edema This is 64 year old female who presents with respiratory failure requiring intubation Acute hypoxic respiratory failure secondary to heart failure vs pneumonia vs COPD exacerbation - chest Xray on admission showing bilateral pneumonia. COVID 19 negative. Blood culture negative. SPutum culture growing gram negative chichi - continue ceftriaxone and azithromycin - troponin trending up 0.306. ECHO Shows EF 35-40% with inferolateral wall hypokinesis. Cardiology was consulted. Lasix increased to 40 mg IV BID. Entresto and spironolactone added today by cardiology. - steroids decreased to 20 mg IV q8 hours Microcytic anemia - Hb 10.9. Will check iron panel for tomorrow Hyponatremia - soduim 133, will continue to monitor MIRELLA - creatinine up to 1.2. Lasix was increased. UA shows proteinuria, no evidence of UTI
[2020-03-07 16:46] LABS: CKMB 2.5 ng/mL (0-6.6)
[2020-03-07] MEDS: Lorazepam 2 MG/ML VIAL SLOW IVP PRN (19:34)
[2020-03-07] MEDS: Insulin Glargine 7 UNITS in Pre-Filled Syringe SC SCH (21:15)
[2020-03-07] MEDS: Atorvastatin Calcium 40 MG TAB PO SCH (21:17)
[2020-03-08] MEDS: Lorazepam 2 MG/ML VIAL SLOW IVP PRN ×3 (01:12→21:02)
[2020-03-08 03:28] LABS: #Lymphocytes 0.7 thou/uL (1.20-3.40); #Monocytes 0.5 thou/uL (0.11-0.59); #Neutrophils 13.1 thou/uL (1.40-6.50); %Basophils 0.1 % (0.0-1.0); %Eosinophils 0.1 % (0.0-10.0); %Monocytes 3.4 % (0.0-10.0); %Neutrophils 91.5 % (42.0-75.0); Hemoglobin 10.5 g/dL (12.0-16.0); Mean Corpuscular HGB CONC 31.2 g/dL (32.0-36.0); Mean Corpuscular Hemoglobin 23.4 pg (27.0-31.0); Mean Corpuscular Volume 74.9 fL (78.0-98.0); Mean Platelet Volume 8.4 fL (7.4-10.4); Platelet Count 413 thou/uL (130-400); RBC Distribution Width 17.5 % (11.5-14.5); Red Blood Cell (RBC) Count 4.48 mill/uL (4.20-5.40); White Blood Cell (WBC) Count 14.3 thou/uL (4.8-10.8)
[2020-03-08 03:43] LABS: Iron Binding Capacity, Total 340 mcg/dL (265-497)
[2020-03-08 03:44] LABS: Iron 13 ug/dL (50-170)
[2020-03-08 03:54] LABS: Anion Gap 15 mmol/L (10-20); Calc. Creatinine Clearance 54 mL/min (70-130); Calcium 8.7 mg/dL (7.8-10.44); Carbon Dioxide 29 mmol/L (23-31); Chloride 96 mmol/L (98-107); Estimated GFR-MDRD 33; Glucose 206 mg/dL (80-115); Iron 14 ug/dL (50-170); Iron Binding Capacity, Total 345 mcg/dL (265-497); Magnesium 2.4 mg/dL (1.6-2.6); Potassium 5.1 mmol/L (3.5-5.1); Sodium 135 mmol/L (136-145)
[2020-03-08] MEDS: HumaLOG 300 UNITS/3 ML VIAL SC PRN ×4 (04:04→21:14)
[2020-03-08] MEDS: cefTRIAXone\\ROCEPHIN 1 GM in Sodium Chloride 0.9% 100 ML IVPB SCH (04:41)
[2020-03-08] MEDS: methylPREDNISolone Sod Succ/PF 125 MG/2 ML VIAL IVP SCH ×3 (05:53→21:04)
[2020-03-08] MEDS: Propofol 1,000 MG/100 ML VIAL IV PRN ×2 (05:55→18:10)
[2020-03-08] MEDS: Azithromycin 500 MG in Sodium Chloride 0.9% 250 ML 250 ML IVPB SCH (05:55)
[2020-03-08] MEDS: fentaNYL Citrate/PF 2,000 MCG in Sodium Chloride 0.9% 60 ML IV SCH ×2 (05:57→17:19)
[2020-03-08 07:00] LABS: Actual Bicarbonate (HCO3a) 29.3 mEq/L (22-28); Base Excess (BEa) 2.7 mEq/L (-2.0 to +3.0); CO2 Tension 54.6 mmHg (35.0-45.0); Calcium, Ionized 1.17 mmol/L (1.12-1.30); Carboxyhemoglobin (COHb) 0.8 gm% (0.0-3.0); Hemoglobin (Hb) 11.1 g/dL (12.0-16.0); O2 Tension (PaO2), arterial 73.9 mmHg (> 80.0); Potassium - ABG Lab 4.88 mmol/L (3.70-5.30); pH, Arterial 7.35 (7.35-7.45)
[2020-03-08 07:18] LABS: Puncture Site RRAD
[2020-03-08] MEDS: Spironolactone 25 MG TAB PO SCH (08:06)
[2020-03-08] MEDS ORDERED: Sodium Chloride 0.9% 500 ML IVPB SCH (08:15)
--- NOTE | 2020-03-08 08:19 | RAD ---
EXAM: CHEST ONE VIEW HISTORY: Pneumonia COMPARISON: 03/07/2020 FINDINGS: Endotracheal tube and nasogastric tubes remain in place. Cardiac silhouette is enlarged. Bilateral pl eural effusions are again seen greater on the right. Also suggestion mild pulmonary vascular congestion with increase in interstitial and linear densities in the left midlung zone. Dense opacity the left lung base and retrocardiac region is likely related to left pleural effusion and superimposition of structures. No other interval change. IMPRESSION: Bilateral pleural effusions with persistent airspace opacities at each lung base greater on the right as well as linear and interstitial densities in the left midlung zone which appear worse compared to prior study. Areas of parenchymal opacity may be related to volume loss due to pleural effusions, but infiltrate/pneumonia is a possibility as well. Continued follow-up to resolution is recommended.
[2020-03-08] MEDS: Aspirin 81 mg Enteric Coated Tablet PO SCH (08:40)
[2020-03-08] MEDS: Enoxaparin Sodium 40 MG/0.4 ML SYRINGE SC SCH (08:40)
--- NOTE | 2020-03-08 09:20 | PRG ---
DATE OF SERVICE: 03/08/2020 PRESENT ILLNESS: Ms. Giles is a 64-year-old female with a history of COPD, who unfortunately continues to smoke. She presented to the hospital with increasing shortness of breath a fairly brief duration. Initial blood gas had demonstrated significant hypoxic component greater than hypercapnia, although that was elevated to 63. She was placed on ventilatory support and has required increasing amounts of oxygen to maintain adequate saturation. She has been mildly sedated and intermittently has required paralytic for severe agitation. Within the past 24 hours, she has had a cardiology consultation demonstrating ejection fraction of approximately 35% and evidence of grade 2/3 diastolic dysfunction, but no evidence of right ventricular overload or significant valvular abnormality. She has been receiving diuresis with the presumption that her exacerbation is more related to heart failure and there has been a significant deterioration of underlying renal function. This morning, the patient is awake on the ventilator and following simple commands. She denies pain. PHYSICAL EXAMINATION: VITAL SIGNS: Current blood pressure 108/67, heart rate 93, saturation 91%, respiratory rate is 20. GENERAL: She is awake and alert. She is orally intubated. She has an NG tube and receiving feedings, which she has tolerated well. LUNGS: Relatively clear to auscultation and percussion. HEART: Regular rate and rhythm. She has intermittent ectopy, although no complex arrhythmias are noted. ABDOMEN: Soft. There is no organomegaly. Bowel sounds are normal. EXTREMITIES: Show no cyanosis or edema. She has erythema and mild coolness of the distal portion of her feet and has had a previous partial toe amputation. She does have good peripheral pulses. There is no evidence of cords or tenderness. LABORATORY DATA: White count this morning 14,300, hemoglobin is 10.5 with hematocrit 33.6, platelet count 413,000. Arterial blood gas reveals pH 7.35, CO2 of 54, pO2 of 74, bicarbonate 29. This was obtained with IMV of 22, FiO2 of 0.6, tidal volume 450, pressure support of 10, and PEEP of 10. Chemistries include sodium 135, potassium 5.1, chloride 96, BUN 77, creatinine 1.58. Both of these dramatically elevated compared to 48 hours ago. Glucose 206. Iron level is low. Troponin was negative. Chest x-ray this morning has been reviewed personally by me. Endotracheal tube is in good position. The x-ray is slightly rotated. Tip of the NG is not well seen. Heart size is normal. There is hazy opacification greater in the right base and I suspect at least a small effusion is present. When compared to the prior x-ray dated 03/06, there is increased haziness over the base, again most consistent with an effusion. A previous CAT scan had shown right greater than left consolidation with what was described as small effusions. IMPRESSION: 1. Respiratory failure, mixed hypoxic and hypercapnic. She is awake, now on the ventilator, and the dominant issue presently is high oxygen demands. I am going to try to gradually turn the FiO2 down. She does not look like she is in distress and I am happy with saturation in the 89% to 91% range. 2. Worsening renal function. There has been significant increase in BUN and creatinine in the past 48 hours following aggressive diuresis. Just looking at her legs, it may suggest that she is not volume overloaded and in fact may need a little bit of fluids back. Her ejection fraction is 35% and there is no evidence of acute valvular abnormalities. We do not have a central venous pressure. I am more inclined to believe that her respiratory failure and radiographic findings are due to pneumonia more than volume, at least at this juncture. 3. Longstanding tobacco abuse, active, with chronic obstructive pulmonary disease. Clearly, smoking cessation is appropriate. PLAN: I have reduced the oxygen from 60% to 55% and reduced the rate from 22 to 20 while increasing tidal volume from 450 to 500. She has been seen by Cardiology and their input is greatly appreciated. I personally think that she is probably intravascularly volume depleted and this explains her marked worsening in renal function rather than cardiac output issue per se. I would recommend that we hold Lasix at least for 24 hours and give her 500 mL of saline. The patient is seen for critical care today totaling 27 minutes of direct patient care. Job ID: [id number]
[2020-03-08] MEDS ORDERED: Sterile Water 10 ML ONE (09:42)
[2020-03-08] MEDS: Vecuronium 10 MG VIAL IVP PRN (09:46)
[2020-03-08] MEDS: Furosemide 40 MG/4 ML VIAL SLOW IVP SCH (10:18)
--- NOTE | 2020-03-08 13:23 | EKG ---
Test Reason : Blood Pressure : / mmHG Vent. Rate : 105 BPM Atrial Rate : 105 BPM P-R Int : 128 ms QRS Dur : 128 ms QT Int : 396 ms P-R-T Axes : 044 080 -46 degrees QTc Int : 523 ms Sinus tachycardia with frequent Premature ventricular complexes Non-specific intra-ventricular conduction block Cannot rule out Inferior infarct , age undetermined Abnormal ECG Confirmed by RAISSA MIJARES ([id number]), electronic news gathering editor SAWYER RAWLS ([id number]) on 03/08/2020 1:23:12 PM Referred By: Confirmed By:RAISSA MIJARES
--- NOTE | 2020-03-08 14:37 | PDOC.HOSPP ---
- Subjective Encounter Date: 03/08/20 Encounter Time: 11:30 Subjective: pt awake follows commands. she is intubated - Objective Vital Signs & Weight: Vital Signs (12 hours) Temp Pulse Pulse Pulse Resp BP BP 03/08/20 14:32 72 20 03/08/20 14:00 20 03/08/20 12:00 99.1 F 03/08/20 10:49 67 03/08/20 10:00 20 03/08/20 08:47 85 116 H 121/67 151/99 H 03/08/20 08:00 99.1 F 03/08/20 07:17 83 03/08/20 07:16 85 22 H 03/08/20 06:00 22 H 03/08/20 04:00 22 H Pulse Ox Pulse Ox Pulse Ox Pulse Ox 03/08/20 14:32 93 L 03/08/20 14:00 03/08/20 12:00 03/08/20 10:49 93 L 03/08/20 10:00 03/08/20 08:47 89 L 93 L 90 L 03/08/20 08:00 94 L 03/08/20 07:17 03/08/20 07:16 93 L 03/08/20 06:00 03/08/20 04:00 Weight Admit Weight 204 lb Weight 205 lb 7.533 oz Most Recent Monitor Data Heart Rate from ECG 79 NIBP 119/69 NIBP BP-Mean 85 Respiration from ECG 20 SpO2 92 I&O: 03/07/20 03/08/20 03/09/20 06:59 06:59 06:59 Intake Total 600.6 1810.1 165 Output Total 843 925 286 Balance -242.4 885.1 -121 Result Diagrams: 03/08/20 03:10 03/08/20 03:10 Additional Labs: Accuchecks 03/08/20 03/07/20 03/07/20 10:28 21:17 16:37 POC Glucose 224 H 203 H 224 H Hospitalist ROS - Review of Systems Other: unable to obtain - Medication Medications: Active Medications Generic Name Dose Route Start Last Admin Trade Name Freq PRN Reason Stop Dose Admin Albuterol/Ipratropium 3 ml 03/06/20 06:30 03/08/20 14:32 Duoneb NEB 3 ml [id number] RALPH Administration Aspirin 81 mg 03/07/20 09:00 03/08/20 08:40 Ecotrin PO 81 mg DAILY RALPH Administration Atorvastatin Calcium 40 mg 03/06/20 21:00 03/07/20 21:17 Lipitor PO 40 mg HS RALPH Administration Enoxaparin Sodium 40 mg 03/07/20 09:00 03/08/20 08:40 Lovenox SC 40 mg 0900 RALPH Administration Furosemide 40 mg 03/07/20 09:00 03/08/20 10:18 Lasix SLOW IVP Not Given BID RALPH Fentanyl Citrate 2,000 mcg/ 100 mls @ 0 mls/hr 03/06/20 03:09 03/08/20 05:57 Sodium Chloride IV 04/05/20 03:09 100 mls INF RALPH Administration Protocol Per Protocol Ceftriaxone Sodium 1 gm/ 100 mls @ 200 mls/hr 03/06/20 05:00 03/08/20 04:41 Sodium Chloride IVPB 100 mls Q24HR RALPH Administration Azithromycin 500 mg/ Sodium 250 mls @ 250 mls/hr 03/06/20 06:00 03/08/20 05: 55 Chloride IVPB 250 mls Q24HR RALPH Administration Insulin Glargine 7 units/ 0.07 mls @ 0 mls/hr 03/06/20 21:00 03/07/20 21:15 Miscellaneous Medication SC 0.07 mls HS RALPH Administration Insulin Human Lispro 0 units 03/06/20 04:13 03/08/20 10:54 Humalog SC 4 unit .MODERATE SLIDING SC PRN Administration Moderate Correctional Scale Lorazepam 2 mg 03/06/20 04:16 03/08/20 09:28 Ativan SLOW IVP 04/05/20 04:16 2 mg Q1H PRN Administration Breakthrough agitation Methylprednisolone Sodium Succinate 20 mg 03/07/20 14:00 03/08/20 13:39 Solu-Medrol IVP 20 mg Q8HR RALPH Administration Pantoprazole Sodium 40 mg 03/06/20 09:00 03/08/20 08:40 Protonix PO 40 mg DAILY RALPH Administration Propofol 1,000 mg 03/06/20 04:16 03/08/20 05:55 Diprivan IV 04/05/20 04:16 1,000 mg INF PRN Administration TO ACHIEVE GOAL RASS Protocol Spironolactone 25 mg 03/08/20 08:00 03/08/20 08:06 Aldactone PO Not Given QAM-WM RALPH Vecuronium Arthur 10 mg 03/06/20 14:48 03/08/20 09:46 Norcuron IVP 10 mg Q30MIN PRN Administration Agitation - Exam Neck: negative: supple, symmetric, no JVD, no thyromegaly, no lymphadenopathy, no carotid bruit, JVD Heart: negative: RRR, no murmur, no gallops, no rubs, normal peripheral pulses, irregular, diminshed peripheral pulses, murmur present, II/IV, III/IV Respiratory: negative: CTAB, no wheezes, no rales, no ronchi, normal chest expansion, no tachypnea, normal percussion, rales, rhonchi, tachypneic, wheezes Hosp A/P - Plan Chest X ray: worsening edema This is 64 year old female who presents with respiratory failure requiring intubation Acute hypoxic respiratory failure secondary to heart failure vs pneumonia vs COPD exacerbation - chest Xray on admission showing bilateral pneumonia. COVID 19 negative. Blood culture negative. SPutum culture growing gram negative chichi - continue ceftriaxone and azithromycin - troponin trending up 0.306. ECHO Shows EF 35-40% with inferolateral wall hypokinesis. Cardiology was consulted. Lasix increased to 40 mg IV BID. Entresto and spironolactone added today by cardiology. - steroids decreased to 20 mg IV q8 hours 03/08 pt on cpap trials and is doing well. extubation per pulm. Microcytic anemia - Hb 10.9. Will check iron panel for tomorrow Hyponatremia - soduim 133, will continue to monitor MIRELLA - creatinine up to 1.2. Lasix was increased. UA shows proteinuria, no evidence of UTI 03/08 entresto held will monitor. will stop lasix her bun and creatinine has worsen.
[2020-03-08] MEDS: Atorvastatin Calcium 40 MG TAB PO SCH (21:02)
[2020-03-08] MEDS: Insulin Glargine 7 UNITS in Pre-Filled Syringe SC SCH (21:14)
[2020-03-09] MEDS: Lorazepam 2 MG/ML VIAL SLOW IVP PRN ×3 (03:10→23:53)
[2020-03-09 03:53] LABS: #Lymphocytes 0.8 thou/uL (1.20-3.40); #Monocytes 0.3 thou/uL (0.11-0.59); %Basophils 0.2 % (0.0-1.0); %Eosinophils 0.1 % (0.0-10.0); %Lymphocytes 7.4 % (21.0-51.0); %Monocytes 2.9 % (0.0-10.0); %Neutrophils 89.4 % (42.0-75.0); Hemoglobin 10.9 g/dL (12.0-16.0); Mean Corpuscular Hemoglobin 23.1 pg (27.0-31.0); Mean Corpuscular Volume 74.6 fL (78.0-98.0); Mean Platelet Volume 8.7 fL (7.4-10.4); Platelet Count 414 thou/uL (130-400); RBC Distribution Width 17.5 % (11.5-14.5); Red Blood Cell (RBC) Count 4.71 mill/uL (4.20-5.40); White Blood Cell (WBC) Count 11.2 thou/uL (4.8-10.8)
[2020-03-09] MEDS: cefTRIAXone\\ROCEPHIN 1 GM in Sodium Chloride 0.9% 100 ML IVPB SCH (04:12)
[2020-03-09 04:13] LABS: Anion Gap 13 mmol/L (10-20); BUN (Urea Nitrogen) 94 mg/dL (9.8-20.1); Calc. Creatinine Clearance 68 mL/min (70-130); Calcium 9.1 mg/dL (7.8-10.44); Carbon Dioxide 31 mmol/L (23-31); Chloride 95 mmol/L (98-107); Estimated GFR-MDRD 43; Glucose 252 mg/dL (80-115); Magnesium 2.7 mg/dL (1.6-2.6); Potassium 5.4 mmol/L (3.5-5.1); Sodium 134 mmol/L (136-145)
[2020-03-09] MEDS: HumaLOG 300 UNITS/3 ML VIAL SC PRN ×4 (04:14→21:44)
[2020-03-09] MEDS: fentaNYL Citrate/PF 2,000 MCG in Sodium Chloride 0.9% 60 ML IV SCH ×2 (05:03→16:46)
[2020-03-09] MEDS: methylPREDNISolone Sod Succ/PF 125 MG/2 ML VIAL IVP SCH ×3 (05:03→21:41)
[2020-03-09] MEDS: Propofol 1,000 MG/100 ML VIAL IV PRN ×3 (05:03→21:41)
[2020-03-09] MEDS: Azithromycin 500 MG in Sodium Chloride 0.9% 250 ML 250 ML IVPB SCH (05:03)
[2020-03-09 07:05] LABS: Actual Bicarbonate (HCO3a) 29.3 mEq/L (22-28); Base Excess (BEa) 3.1 mEq/L (-2.0 to +3.0); Calcium, Ionized 1.18 mmol/L (1.12-1.30); Carboxyhemoglobin (COHb) 0.5 gm% (0.0-3.0); Hemoglobin (Hb) 10.7 g/dL (12.0-16.0); O2 Tension (PaO2), arterial 84.7 mmHg (> 80.0); Potassium - ABG Lab 5.23 mmol/L (3.70-5.30); pH, Arterial 7.36 (7.35-7.45)
[2020-03-09 07:26] LABS: Puncture Site RRAD
[2020-03-09] MEDS ORDERED: Milk Of Magnesia 30 ML UDCUP PO PRN (07:54)
[2020-03-09] MEDS: Enoxaparin Sodium 40 MG/0.4 ML SYRINGE SC SCH (08:31)
[2020-03-09] MEDS: Spironolactone 25 MG TAB PO SCH (08:32)
[2020-03-09] MEDS: Aspirin 81 mg Enteric Coated Tablet PO SCH (08:32)
--- NOTE | 2020-03-09 08:44 | RAD ---
EXAM: CHEST ONE VIEW HISTORY: Pneumonia. Follow-up evaluation. COMPARISON: 03/08/2020 FINDINGS: Endotracheal tube and nasogastric tubes remain in place. Cardiac silhouette is enlarged. Bilateral pl eural effusions are again seen. Dense opacity is again seen at the left lung base in the retrocardiac region which may related to left pleural effusion and atelectasis, but superimposed infi ltrate/pneumonia left lung base is a possibility. Interstitial densities left midlung zone on prior study have mildly improved. No other interval change. IMPRESSION: Bilateral pleural effusions and associated passive atelectasis. Superimposed pneumonia left lung base cannot be entirely excluded.
[2020-03-09] MEDS ORDERED: Sodium Chloride 0.9% 1,000 ML IV SCH (09:00)
--- NOTE | 2020-03-09 09:28 | PRG ---
DATE OF SERVICE: 03/09/2020 SUBJECTIVE: Ms. Giles continues to receive ventilatory support. We have not been able to get FiO2 below 50% despite ongoing use of PEEP. She is lightly sedated and awakens and nods her head. She denies pain. Lasix was held yesterday and gentle fluid bolus was given. Urine output is a little better today. OBJECTIVE: VITAL SIGNS: Blood pressure is 143/80, heart rate is 100, oxygen saturation 90% on current ventilator settings of rate of 14, PEEP of 8, FiO2 of 50%, just down from 55% and PEEP of 10. GENERAL: She is lightly sedated, but nods her head. She will follow simple commands. LUNGS: Show coarse rhonchi, but no wheezing. She is assisting the ventilator and spontaneous efforts are typically below 300. ABDOMEN: Soft, mildly distended. There is no guarding. EXTREMITIES: Show no edema. There is no cyanosis or clubbing. LABORATORY DATA: Chest x-ray reviewed by me shows lines and tubes in good position. There is consolidation in the right base and there is a small right effusion. White count is 11,200, hemoglobin is 10.9, platelet count 414,000. Blood gas includes pH 7.36, CO2 of 53, pO2 of 84, bicarbonate of 29, this is obtained in the previous settings. Sodium 134, potassium 5.4, chloride 95, CO2 of 31. Creatinine 1.2, improved from 1.58 yesterday. BUN is 94, up from 77 yesterday and 12 on admission. IMPRESSION: 1. Long-standing and active tobacco use with chronic obstructive pulmonary disease in acute exacerbation. 2. Right lower lung pneumonia on antibiotic directed community-acquired source. 3. Prerenal azotemia, most likely secondary to aggressive diuresis. The initial assessment was that the patient had volume overload and heart failure; although, echocardiogram has subsequently demonstrated only mild impairment in the 35% to 40% range. PLAN: I have further reduced the ventilator with a goal of getting 50% or less on her FiO2. Hopefully, we can also tolerate beginning of rate reduction wean. She is on antibiotics. I am going to give her another 500 of saline and I will increase her flush free water rate. We will give her a dose of milk of magnesia. Job ID: [id number]
[2020-03-09] MEDS ORDERED: Iron, Sodium Ferric Gluconate 125 MG in Sodium Chloride 0.9% 100 ML IVPB SCH (09:45)
[2020-03-09] MEDS ORDERED: Insulin Glargine 7 UNITS in Pre-Filled Syringe 1 EACH SC SCH (10:30)
--- NOTE | 2020-03-09 12:48 | PDOC.HOSPP ---
- Subjective Encounter Date: 03/09/20 Encounter Time: 09:45 Subjective: pt intubated appears in a bit distress. - Objective Vital Signs & Weight: Vital Signs (12 hours) Temp Pulse Resp Pulse Ox 03/09/20 10:37 94 16 93 L 03/09/20 10:00 16 03/09/20 08:00 21 H 03/09/20 07:38 20 96 03/09/20 07:24 87 20 93 L 03/09/20 07:00 99.0 F 03/09/20 06:00 20 03/09/20 04:00 20 03/09/20 02:56 68 20 95 03/09/20 02:00 20 Weight Admit Weight 204 lb Weight 208 lb 1.862 oz Most Recent Monitor Data Heart Rate from ECG 72 NIBP 124/64 NIBP BP-Mean 84 Respiration from ECG 16 SpO2 93 I&O: 03/08/20 03/09/20 03/10/20 06:59 06:59 06:59 Intake Total 1810.1 2094.6 250 Output Total 925 1301 535 Balance 885.1 793.6 -285 Result Diagrams: 03/09/20 03:15 03/09/20 03:15 Additional Labs: Accuchecks 03/09/20 03/08/20 03/08/20 10:45 21:17 16:17 POC Glucose 245 H 220 H 297 H Hospitalist ROS - Review of Systems Other: pt in distress unable to obtain - Medication Medications: Active Medications Generic Name Dose Route Start Last Admin Trade Name Freq PRN Reason Stop Dose Admin Albuterol/Ipratropium 3 ml 03/06/20 06:30 03/09/20 10:37 Duoneb NEB 3 ml [id number] RALPH Administration Aspirin 81 mg 03/07/20 09:00 03/09/20 08:32 Ecotrin PO 81 mg DAILY RALPH Administration Atorvastatin Calcium 40 mg 03/06/20 21:00 03/08/20 21:02 Lipitor PO 40 mg HS RALPH Administration Enoxaparin Sodium 40 mg 03/07/20 09:00 03/09/20 08:31 Lovenox SC 40 mg 0900 RALPH Administration Fentanyl Citrate 2,000 mcg/ 100 mls @ 0 mls/hr 03/06/20 03:09 03/09/20 05:03 Sodium Chloride IV 04/05/20 03:09 100 mls INF RALPH Administration Protocol Per Protocol Ceftriaxone Sodium 1 gm/ 100 mls @ 200 mls/hr 03/06/20 05:00 03/09/20 04:12 Sodium Chloride IVPB 100 mls Q24HR RALPH Administration Azithromycin 500 mg/ Sodium 250 mls @ 250 mls/hr 03/06/20 06:00 03/09/20 05: 03 Chloride IVPB 250 mls Q24HR RALPH Administration Insulin Glargine 7 units/ 0.07 mls @ 0 mls/hr 03/06/20 21:00 03/08/20 21:14 Miscellaneous Medication SC 0.07 mls HS RALPH Administration Insulin Human Lispro 0 units 03/06/20 04:13 03/09/20 10:42 Humalog SC 4 unit .MODERATE SLIDING SC PRN Administration Moderate Correctional Scale Lorazepam 2 mg 03/06/20 04:16 03/09/20 03:10 Ativan SLOW IVP 04/05/20 04:16 2 mg Q1H PRN Administration Breakthrough agitation Methylprednisolone Sodium Succinate 20 mg 03/07/20 14:00 03/09/20 05:03 Solu-Medrol IVP 20 mg Q8HR RALPH Administration Pantoprazole Sodium 40 mg 03/06/20 09:00 03/09/20 08:32 Protonix PO 40 mg DAILY RALPH Administration Propofol 1,000 mg 03/06/20 04:16 03/09/20 05:03 Diprivan IV 04/05/20 04:16 1,000 mg INF PRN Administration TO ACHIEVE GOAL RASS Protocol Spironolactone 25 mg 03/08/20 08:00 03/09/20 08:32 Aldactone PO 25 mg QAM-WM RALPH Administration Vecuronium Nye 10 mg 03/06/20 14:48 03/08/20 09:46 Norcuron IVP 10 mg Q30MIN PRN Administration Agitation - Exam Neck: negative: supple, symmetric, no JVD, no thyromegaly, no lymphadenopathy, no carotid bruit, JVD Heart - other findings: tachycardia Respiratory: rales. negative: CTAB, no wheezes, no rales, no ronchi, normal chest expansion, no tachypnea, normal percussion, rhonchi, tachypneic, wheezes Gastrointestinal: negative: soft, non-tender, non-distended, normal bowel sounds , no palpable masses, no hepatomegaly, no splenomegaly, no bruit, no guarding, no rigidity, tender to palpation, distended, diminished bowl sounds, voluntary guarding Hosp A/P - Plan Chest X ray: worsening edema This is 64 year old female who presents with respiratory failure requiring intubation Acute hypoxic respiratory failure secondary to heart failure vs pneumonia vs COPD exacerbation - chest Xray on admission showing bilateral pneumonia. COVID 19 negative. Blood culture negative. SPutum culture growing gram negative chichi - continue ceftriaxone and azithromycin - troponin trending up 0.306. ECHO Shows EF 35-40% with inferolateral wall hypokinesis. Cardiology was consulted. Lasix increased to 40 mg IV BID. Entresto and spironolactone added today by cardiology. - steroids decreased to 20 mg IV q8 hours 03/08 pt on cpap trials and is doing well. extubation per pulm. 03/09 pt did not tolerate cpap for long. will continue careful diuresing Microcytic anemia - Hb 10.9. Will check iron panel for tomorrow 03/09 will start oral iron and give one dose of iv iron. Hyponatremia - soduim 133, will continue to monitor MIRELLA - creatinine up to 1.2. Lasix was increased. UA shows proteinuria, no evidence of UTI 03/08 entresto held will monitor. will stop lasix her bun and creatinine has worsen. systolic heart failure new onset decompensation: pt on spironolactone per cardio will hold off on bb given her copd. cannot do MELISSA due to her mirella DM: will start pt on lantus bid with humalog 5 units tid.
[2020-03-09] MEDS: DOBUTamine 500 mg/250 ml 250 ML IVPB SCH (13:54)
[2020-03-09] MEDS: Vecuronium 10 MG VIAL IVP PRN ×2 (15:43→18:41)
[2020-03-09] MEDS: HumaLOG 300 UNITS/3 ML VIAL SC SCH ×2 (15:48→21:43)
[2020-03-09] MEDS ORDERED: Carvedilol 6.25 MG TAB PO SCH (17:00)
[2020-03-09] MEDS: Atorvastatin Calcium 40 MG TAB PO SCH (21:43)
[2020-03-09] MEDS: Insulin Glargine 7 UNITS in Pre-Filled Syringe SC SCH (21:44)
[2020-03-10] MEDS: HumaLOG 300 UNITS/3 ML VIAL SC PRN ×2 (03:52→09:18)
[2020-03-10] MEDS: Propofol 1,000 MG/100 ML VIAL IV PRN ×5 (03:52→22:34)
[2020-03-10] MEDS: methylPREDNISolone Sod Succ/PF 125 MG/2 ML VIAL IVP SCH ×3 (05:34→22:34)
[2020-03-10] MEDS: fentaNYL Citrate/PF 2,000 MCG in Sodium Chloride 0.9% 60 ML IV SCH ×2 (05:35→16:31)
[2020-03-10 07:09] LABS: Actual Bicarbonate (HCO3a) 34.7 mEq/L (22-28); Base Excess (BEa) 8.1 mEq/L (-2.0 to +3.0); CO2 Tension 58.8 mmHg (35.0-45.0); Calcium, Ionized 1.24 mmol/L (1.12-1.30); Carboxyhemoglobin (COHb) 0.9 gm% (0.0-3.0); Hemoglobin (Hb) 11.7 g/dL (12.0-16.0); O2 Tension (PaO2), arterial 74.2 mmHg (> 80.0); Potassium - ABG Lab 5.52 mmol/L (3.70-5.30); pH, Arterial 7.39 (7.35-7.45)
[2020-03-10 07:11] LABS: Puncture Site LRA
[2020-03-10] MEDS ORDERED: Furosemide 40 MG/4 ML VIAL SLOW IVP SCH (07:30)
--- NOTE | 2020-03-10 07:47 | PRG ---
DATE OF SERVICE: 03/09/2020 ADDENDUM: Ms. Giles did not tolerate reduced ventilator rate and ultimately became increasingly tachycardic, tachypneic, and dropped her oxygen saturations. She was given more sedation and we have had to go back up on the ventilator rate. We will continue to reassess, but unfortunately she may be one of those individuals who requires abrupt cessation of sedation followed by immediate extubation. Job ID: [id number]
--- NOTE | 2020-03-10 07:50 | PRG ---
DATE OF SERVICE: 03/10/2020 TIME SPENT: 35 minutes of critical care time. SUBJECTIVE: This patient remains intubated on mechanical ventilation. She will wake up and follow some commands. OBJECTIVE: VITAL SIGNS: Her temperature is 97.0, pulse 63, blood pressure 143/72. Intake 3391, output 2515. Her weight is up to 212 pounds from admission weight of 204 pounds. HEENT: Unremarkable. NECK: No adenopathy or JVD. LUNGS: Coarse breath sounds. CARDIAC: S1 and S2, regular. ABDOMEN: Obese, soft, nontender. EXTREMITIES: Trace edema. LABORATORY DATA: The pH is 7.39, pCO2 of 58, pO2 of 74, SIMV rate 13, tidal volume 500, PEEP 10, pressure support 10, and FiO2 of 50%. Chemistry and CBC have not been done. ASSESSMENT: 1. Acute respiratory failure requiring mechanical ventilation. 2. Pneumonia. 3. Underlying chronic obstructive pulmonary disease. 4. Bronchoscopic culture with Pseudomonas and Serratia. PLAN: 1. Levaquin is adequate coverage for the current organisms involved. 2. She is dyssynchronous with the ventilator, so I am going to try her on spontaneous breathing so that she can maintain her own tidal volumes. 3. She has been started on dobutamine drip. Her echocardiogram from 03/06 demonstrates decreased EF of 35% to 40%. 4. She could probably tolerate some diuresis. 5. We will check her labs. Job ID: [id number]
[2020-03-10 08:03] LABS: Anion Gap 12 mmol/L (10-20); BUN (Urea Nitrogen) 68 mg/dL (9.8-20.1); Calc. Creatinine Clearance 104 mL/min (70-130); Calcium 9.3 mg/dL (7.8-10.44); Carbon Dioxide 30 mmol/L (23-31); Chloride 98 mmol/L (98-107); Estimated GFR-MDRD 68; Glucose 169 mg/dL (80-115); Potassium 5.7 mmol/L (3.5-5.1); Sodium 134 mmol/L (136-145)
[2020-03-10 08:08] LABS: #Lymphocytes 0.8 thou/uL (1.20-3.40); #Monocytes 0.5 thou/uL (0.11-0.59); #Neutrophils 8.2 thou/uL (1.40-6.50); %Basophils 0.1 % (0.0-1.0); %Lymphocytes 8.7 % (21.0-51.0); %Monocytes 5.4 % (0.0-10.0); %Neutrophils 85.8 % (42.0-75.0); Hemoglobin 11.3 g/dL (12.0-16.0); Mean Corpuscular HGB CONC 29.8 g/dL (32.0-36.0); Mean Corpuscular Hemoglobin 22.4 pg (27.0-31.0); Mean Corpuscular Volume 75.1 fL (78.0-98.0); Mean Platelet Volume 8.1 fL (7.4-10.4); Platelet Count 420 thou/uL (130-400); RBC Distribution Width 17.3 % (11.5-14.5); Red Blood Cell (RBC) Count 5.05 mill/uL (4.20-5.40); White Blood Cell (WBC) Count 9.5 thou/uL (4.8-10.8)
--- NOTE | 2020-03-10 08:08 | RAD ---
Chest one view HISTORY: Pneumonia. Follow-up. COMPARISON: 03/09/2020. FINDINGS: Cardiac silhouette remains magnified and enlarged. Pulmonary vasculature remains engorged w ith patchy areas of ill-defined parenchymal opacity projecting over each lung remaining more pronounced at the lower lobes. Blunting of each costophrenic angle again demonstrated. Mediastinum is midline. Lines and tubes appear unchanged in position. No evidence of pneumothorax. IMPRESSION : Given the cardiomegaly and pulmonary vascular congestion, bilateral pleural fluid and patchy bibasila r infiltrates are favored to be related pulmonary vascular congestion rather than pneumonia.
[2020-03-10 08:12] LABS: Hypochromia SLIGHT = 6-15 cells (100X) (0-5/hpf); MDiff Complete? YES; Microcytosis SLIGHT = 6-15 cells (100X) (0-5/hpf); Platelet Morphology Comment Appears Increased; Polychromasia SLIGHT = 2-3 cells (100X) (0-2/hpf)
[2020-03-10] MEDS ORDERED: Spironolactone 25 MG TAB PO SCH ×2 (08:50→09:15)
[2020-03-10] MEDS: Ferrous Gluconate 324 MG TAB PO SCH (08:51)
[2020-03-10] MEDS: Aspirin 81 mg Enteric Coated Tablet PO SCH (08:51)
[2020-03-10] MEDS: Spironolactone 25 MG TAB PO SCH (08:52)
[2020-03-10] MEDS: Enoxaparin Sodium 40 MG/0.4 ML SYRINGE SC SCH (08:58)
[2020-03-10] MEDS ORDERED: Amlodipine 10 MG TAB PO SCH (09:00)
[2020-03-10] MEDS ORDERED: Insulin Glargine 7 UNITS in Pre-Filled Syringe 1 EACH SC SCH (09:00)
[2020-03-10] MEDS: HumaLOG 300 UNITS/3 ML VIAL SC SCH ×4 (09:02→20:18)
[2020-03-10 13:16] LABS: Anion Gap 15 mmol/L (10-20); BUN (Urea Nitrogen) 67 mg/dL (9.8-20.1); Calc. Creatinine Clearance 98 mL/min (70-130); Calcium 9.5 mg/dL (7.8-10.44); Carbon Dioxide 28 mmol/L (23-31); Chloride 98 mmol/L (98-107); Estimated GFR-MDRD 64; Glucose 119 mg/dL (80-115); Potassium 6.2 mmol/L (3.5-5.1); Sodium 135 mmol/L (136-145)
[2020-03-10] MEDS: Furosemide 40 MG/4 ML VIAL SLOW IVP SCH (14:52)
--- NOTE | 2020-03-10 15:52 | PDOC.HOSPP ---
- Subjective Encounter Date: 03/10/20 Encounter Time: 10:00 Subjective: pt up in bed intubated - Objective Vital Signs & Weight: Vital Signs (12 hours) Temp Pulse Pulse Pulse Resp BP BP 03/10/20 15:00 83 139/89 03/10/20 14:56 83 13 03/10/20 10:35 73 163/98 H 03/10/20 10:33 72 7 L 03/10/20 09:47 73 70 163/98 H 03/10/20 06:39 62 143/72 H 03/10/20 06:37 58 L 13 03/10/20 06:00 13 03/10/20 04:00 97.9 F 13 BP Pulse Ox Pulse Ox Pulse Ox 03/10/20 15:00 03/10/20 14:56 91 L 03/10/20 10:35 03/10/20 10:33 91 L 03/10/20 09:47 145/97 H 90 L 92 L 03/10/20 06:39 03/10/20 06:37 97 03/10/20 06:00 03/10/20 04:00 Weight Admit Weight 204 lb Weight 212 lb 4.882 oz Most Recent Monitor Data Heart Rate from ECG 84 NIBP 144/78 NIBP BP-Mean 100 Respiration from ECG 7 SpO2 91 I&O: 03/09/20 03/10/20 03/11/20 06:59 06:59 06:59 Intake Total 2094.6 3391.2 Output Total 1301 2515 Balance 793.6 876.2 Result Diagrams: 03/10/20 07:35 03/10/20 12:47 Additional Labs: Accuchecks 03/10/20 03/09/20 03/09/20 03:53 21:45 17:04 POC Glucose 181 H 299 H 265 H Hospitalist ROS - Review of Systems Other: unable to obtain - Medication Medications: Active Medications Generic Name Dose Route Start Last Admin Trade Name Freq PRN Reason Stop Dose Admin Albuterol/Ipratropium 3 ml 03/06/20 06:30 03/10/20 14:56 Duoneb NEB 3 ml [id number] RALPH Administration Aspirin 81 mg 03/07/20 09:00 03/10/20 08:51 Ecotrin PO 81 mg DAILY RALPH Administration Atorvastatin Calcium 40 mg 03/06/20 21:00 03/09/20 21:43 Lipitor PO 40 mg HS RALPH Administration Enoxaparin Sodium 40 mg 03/07/20 09:00 03/10/20 08:58 Lovenox SC 40 mg 0900 RALPH Administration Ferrous Gluconate 324 mg 03/10/20 08:00 03/10/20 08:51 Fergon PO 324 mg QAM-WM RALPH Administration Furosemide 40 mg 03/10/20 14:00 03/10/20 14:52 Lasix SLOW IVP 40 mg 0600,1400 RALPH Administration Fentanyl Citrate 2,000 mcg/ 100 mls @ 0 mls/hr 03/06/20 03:09 03/10/20 05:35 Sodium Chloride IV 04/05/20 03:09 100 mls INF RALPH Administration Protocol Per Protocol Insulin Glargine 7 units/ 0.07 mls @ 0 mls/hr 03/06/20 21:00 03/09/20 21:44 Miscellaneous Medication SC 0.07 mls HS RALPH Administration Insulin Glargine 7 units/ 0.07 mls @ 0 mls/hr 03/10/20 09:00 03/10/20 08:58 Miscellaneous Medication SC 0.07 mls QAM RALPH Administration Levofloxacin 500 mg/ Device 100 mls @ 100 mls/hr 03/09/20 13:00 03/10/20 13: 27 IVPB 100 mls Q24HR RALPH Administration Dobutamine HCl/Dextrose 250 mls @ 14.16 mls/hr 03/09/20 13:45 03/09/20 13:54 Dobutamine 500 Mg/250 Ml IVPB 250 mls INF RALPH Administration 5 MCG/KG/MIN Insulin Human Lispro 0 units 03/06/20 04:13 03/10/20 09:18 Humalog SC 2 unit .MODERATE SLIDING SC PRN Administration Moderate Correctional Scale Insulin Human Lispro 5 units 03/09/20 15:00 03/10/20 09:02 Humalog SC 5 unit TID RALPH Administration Lorazepam 2 mg 03/06/20 04:16 03/09/20 23:53 Ativan SLOW IVP 04/05/20 04:16 2 mg Q1H PRN Administration Breakthrough agitation Methylprednisolone Sodium Succinate 20 mg 03/07/20 14:00 03/10/20 14:51 Solu-Medrol IVP 20 mg Q8HR RALPH Administration Pantoprazole Sodium 40 mg 03/06/20 09:00 03/10/20 08:59 Protonix PO Not Given DAILY RALPH Propofol 1,000 mg 03/06/20 04:16 03/10/20 13:14 Diprivan IV 04/05/20 04:16 1,000 mg INF PRN Administration TO ACHIEVE GOAL RASS Protocol Vecuronium Jarreau 10 mg 03/06/20 14:48 03/09/20 18:41 Norcuron IVP 10 mg Q30MIN PRN Administration Agitation - Exam Neck: negative: supple, symmetric, no JVD, no thyromegaly, no lymphadenopathy, no carotid bruit, JVD Heart: negative: RRR, no murmur, no gallops, no rubs, normal peripheral pulses, irregular, diminshed peripheral pulses, murmur present, II/IV, III/IV Respiratory: rales Gastrointestinal: negative: soft, non-tender, non-distended, normal bowel sounds , no palpable masses, no hepatomegaly, no splenomegaly, no bruit, no guarding, no rigidity, tender to palpation, distended, diminished bowl sounds, voluntary guarding Hosp A/P - Plan Chest X ray: worsening edema This is 64 year old female who presents with respiratory failure requiring intubation Acute hypoxic respiratory failure secondary to heart failure vs pneumonia vs COPD exacerbation - chest Xray on admission showing bilateral pneumonia. COVID 19 negative. Blood culture negative. SPutum culture growing gram negative chichi - continue ceftriaxone and azithromycin - troponin trending up 0.306. ECHO Shows EF 35-40% with inferolateral wall hypokinesis. Cardiology was consulted. Lasix increased to 40 mg IV BID. Entresto and spironolactone added today by cardiology. - steroids decreased to 20 mg IV q8 hours 03/08 pt on cpap trials and is doing well. extubation per pulm. 03/09 pt did not tolerate cpap for long. will continue careful diuresing 03/10 pt on dobutamine, will start lasix 40mg iv bid. will check bmp Microcytic anemia - Hb 10.9. Will check iron panel for tomorrow 03/09 will start oral iron and give one dose of iv iron. Hyponatremia - soduim 133, will continue to monitor MIRELLA - creatinine up to 1.2. Lasix was increased. UA shows proteinuria, no evidence of UTI 03/08 entresto held will monitor. will stop lasix her bun and creatinine has worsen. systolic heart failure new onset decompensation: pt on spironolactone per cardio will hold off on bb given her copd. cannot do MELISSA due to her mirella DM: will start pt on lantus bid with humalog 5 units tid. hyyperkalemia: will hold spironolactone and get ekg, calcium gluconate.
[2020-03-10] MEDS ORDERED: Calcium Gluc 4.6 MEQ/10 ML (100 MG/ML) SLOW IVP ONE (15:54)
[2020-03-10] MEDS ORDERED: Dextrose 50% Abboject 50 ML SYRINGE SLOW IVP PRN (15:55)
[2020-03-10] MEDS ORDERED: Albuterol Sulfate 2.5 mg/3 ml Neb NEB SCH (17:30)
[2020-03-10] MEDS ORDERED: Calcium Gluconate 4.6 MEQ in Sodium Chloride 0.9% 100 ML IVPB SCH (17:45)
[2020-03-10] MEDS: DOBUTamine 500 mg/250 ml 250 ML IVPB SCH (18:26)
[2020-03-10] MEDS: Insulin Regular 300 UNITS/3 ML VIAL IVP SCH ×2 (18:39→18:42)
[2020-03-10] MEDS: Insulin Glargine 7 UNITS in Pre-Filled Syringe SC SCH (20:18)
[2020-03-10] MEDS: Pantoprazole 40 MG VIAL IVP SCH (20:18)
[2020-03-10] MEDS: Atorvastatin Calcium 40 MG TAB PO SCH (20:18)
[2020-03-10] MEDS: Lorazepam 2 MG/ML VIAL SLOW IVP PRN (22:35)
[2020-03-11] MEDS: fentaNYL Citrate/PF 2,000 MCG in Sodium Chloride 0.9% 60 ML IV SCH (02:23)
[2020-03-11] MEDS: Propofol 1,000 MG/100 ML VIAL IV PRN ×4 (03:26→23:44)
[2020-03-11 04:22] LABS: #Lymphocytes 0.8 thou/uL (1.20-3.40); #Monocytes 0.8 thou/uL (0.11-0.59); #Neutrophils 12.9 thou/uL (1.40-6.50); %Basophils 0.1 % (0.0-1.0); %Eosinophils 0.1 % (0.0-10.0); %Lymphocytes 5.4 % (21.0-51.0); %Monocytes 5.4 % (0.0-10.0); Hemoglobin 11.1 g/dL (12.0-16.0); Mean Corpuscular HGB CONC 29.9 g/dL (32.0-36.0); Mean Corpuscular Hemoglobin 22.7 pg (27.0-31.0); Mean Corpuscular Volume 76.2 fL (78.0-98.0); Mean Platelet Volume 8.3 fL (7.4-10.4); Platelet Count 425 thou/uL (130-400); RBC Distribution Width 17.3 % (11.5-14.5); Red Blood Cell (RBC) Count 4.86 mill/uL (4.20-5.40); White Blood Cell (WBC) Count 14.5 thou/uL (4.8-10.8)
[2020-03-11 04:36] LABS: Anion Gap 14 mmol/L (10-20); BUN (Urea Nitrogen) 78 mg/dL (9.8-20.1); Calc. Creatinine Clearance 80 mL/min (70-130); Calcium 9.3 mg/dL (7.8-10.44); Carbon Dioxide 33 mmol/L (23-31); Chloride 94 mmol/L (98-107); Estimated GFR-MDRD 51; Glucose 120 mg/dL (80-115); Potassium 6.3 mmol/L (3.5-5.1); Sodium 135 mmol/L (136-145)
[2020-03-11] MEDS: Furosemide 40 MG/4 ML VIAL SLOW IVP SCH (05:37)
[2020-03-11] MEDS: methylPREDNISolone Sod Succ/PF 125 MG/2 ML VIAL IVP SCH ×3 (05:37→21:00)
[2020-03-11 06:49] LABS: Actual Bicarbonate (HCO3a) 35.8 mEq/L (22-28); Base Excess (BEa) 6.9 mEq/L (-2.0 to +3.0); Calcium, Ionized 1.25 mmol/L (1.12-1.30); Hemoglobin (Hb) 11.9 g/dL (12.0-16.0); O2 Tension (PaO2), arterial 72.4 mmHg (> 80.0); Potassium - ABG Lab 6.01 mmol/L (3.70-5.30); pH, Arterial 7.29 (7.35-7.45)
[2020-03-11 06:50] LABS: ALV-art Gradient 153.575 (0-20); CO2 Tension 75.9 mmHg (35.0-45.0); Puncture Site LRA
--- NOTE | 2020-03-11 07:37 | PRG ---
DATE OF SERVICE: 03/11/2020 TIME SPENT: 35 minutes critical care time. SUBJECTIVE: This patient remains intubated on mechanical ventilation. I find her too sedated this morning and not breathing spontaneously. OBJECTIVE: VITAL SIGNS: On exam, temperature 99.1, pulse 80, blood pressure 136/72. 24-hour intake 3103 and output 2460. HEENT: Unremarkable. NECK: No adenopathy or JVD. LUNGS: Clear anteriorly. CARDIAC: S1, S2. Regular with occasional ectopy. ABDOMEN: Soft, obese, nontender. EXTREMITIES: No clubbing, cyanosis, or edema. LABORATORY DATA: Sodium 135, potassium 6.3, chloride 94, CO2 of 33, BUN 78, creatinine 1.0, and glucose 120. White blood cell count 14.5, hematocrit 37, and platelet count 425. PH of 7.29, pCO2 of 75, PO2 of 72 on SIMV rate 6, tidal volume 500, PEEP 8, pressure per 10, FiO2 45%. Chest x-ray demonstrates continued pulmonary edema, right more than left. ET tube in good position. ASSESSMENT: 1. Acute respiratory failure requiring mechanical ventilation. 2. Low ejection fraction. 3. Acute renal dysfunction. 4. Severe hyperkalemia which may be exacerbated by the use of spironolactone. 5. Bronchoscopy with culture positive for Pseudomonas and Serratia from admission. PLAN: 1. Continue the Levaquin. 2. Stop spironolactone as that is contraindicated in hyperkalemia. 3. I will clean up the MAR stopping the rocuronium and the norepinephrine. 4. Because of development of prerenal insufficiency, I will go ahead and stop the furosemide. 5. Patient will be given a dose of Kayexalate. 6. Potassium needs to be rechecked this afternoon. 7. I will reduce her steroid dose. 8. Prognosis remains guarded at this time. Job ID: [id number]
--- NOTE | 2020-03-11 07:51 | RAD ---
Chest one view HISTORY: Pneumonia. Follow-up. COMPARISON: 03/10/2020. FINDINGS: Cardiac silhouette is magnified and enlarged. Pulmonary vasculature remains engorged. Infiltrate within the right upper lobe has increased. Patchy bibasilar infiltrates are unchanged. Mediastinum is midline with aortic calcification. Lines and tubes appear unchanged in position. No evidence of pneumothorax. IMPRESSION : Radiographic worsening of right upper lobe infiltrate. Pulmonary vascular congestion and other findings are otherwise stable.
[2020-03-11] MEDS ORDERED: Spironolactone 25 MG TAB PO SCH (08:00)
[2020-03-11] MEDS: Enoxaparin Sodium 40 MG/0.4 ML SYRINGE SC SCH (09:14)
[2020-03-11] MEDS: Pantoprazole 40 MG VIAL IVP SCH ×2 (09:15→21:00)
[2020-03-11] MEDS: Aspirin 81 mg Enteric Coated Tablet PO SCH (09:16)
[2020-03-11] MEDS: Ferrous Gluconate 324 MG TAB PO SCH (09:16)
[2020-03-11] MEDS: hydrALAZINE 25 MG TAB PO SCH ×3 (09:17→20:59)
[2020-03-11] MEDS: HumaLOG 300 UNITS/3 ML VIAL SC PRN ×2 (10:30→16:05)
--- NOTE | 2020-03-11 13:32 | PDOC.HOSPP ---
- Subjective Encounter Date: 03/11/20 Encounter Time: 10:30 Subjective: pt intubated, at bedside. - Objective Vital Signs & Weight: Vital Signs (12 hours) Pulse Pulse Pulse Resp BP BP BP 03/11/20 10:33 116 H 157/75 H 03/11/20 10:32 117 H 26 H 03/11/20 10:00 21 H 03/11/20 09:55 110 H 112 H 157/75 H 168/73 H 03/11/20 09:17 82 136/72 03/11/20 08:00 16 03/11/20 06:26 82 12 136/72 03/11/20 06:00 12 03/11/20 04:00 12 03/11/20 03:28 74 10 L 03/11/20 02:00 11 L Pulse Ox Pulse Ox Pulse Ox 03/11/20 10:33 03/11/20 10:32 91 L 03/11/20 10:00 03/11/20 09:55 92 L 93 L 03/11/20 09:17 03/11/20 08:00 92 L 03/11/20 06:26 92 L 03/11/20 06:00 03/11/20 04:00 03/11/20 03:28 91 L 03/11/20 02:00 Weight Admit Weight 204 lb Weight 216 lb 0.848 oz Most Recent Monitor Data Heart Rate from ECG 111 NIBP 157/75 NIBP BP-Mean 102 Respiration from ECG 19 SpO2 94 I&O: 03/10/20 03/11/20 03/12/20 06:59 06:59 06:59 Intake Total 3391.2 3103.2 45 Output Total 2515 2460 625 Balance 876.2 643.2 -580 Result Diagrams: 03/11/20 03:30 03/11/20 03:30 Additional Labs: Accuchecks 03/11/20 03/10/20 03/10/20 10:28 21:11 18:26 POC Glucose 175 H 117 H 124 H Hospitalist ROS - Review of Systems Other: unable to obtain - Medication Medications: Active Medications Generic Name Dose Route Start Last Admin Trade Name Freq PRN Reason Stop Dose Admin Albuterol/Ipratropium 3 ml 03/06/20 06:30 03/11/20 10:32 Duoneb NEB 3 ml [id number] RALPH Administration Aspirin 81 mg 03/07/20 09:00 03/11/20 09:16 Ecotrin PO 81 mg DAILY RALPH Administration Atorvastatin Calcium 40 mg 03/06/20 21:00 03/10/20 20:18 Lipitor PO 40 mg HS RALPH Administration Enoxaparin Sodium 40 mg 03/07/20 09:00 03/11/20 09:14 Lovenox SC 40 mg 0900 RALPH Administration Ferrous Gluconate 324 mg 03/10/20 08:00 03/11/20 09:16 Fergon PO 324 mg QAM-WM RALPH Administration Hydralazine HCl 25 mg 03/11/20 09:00 03/11/20 09:17 Apresoline PO 25 mg TID RALPH Administration Insulin Glargine 7 units/ 0.07 mls @ 0 mls/hr 03/06/20 21:00 03/10/20 20:18 Miscellaneous Medication SC 0.07 mls HS RALPH Administration Levofloxacin 500 mg/ Device 100 mls @ 100 mls/hr 03/09/20 13:00 03/11/20 13: 19 IVPB 100 mls Q24HR RALPH Administration Dobutamine HCl/Dextrose 250 mls @ 14.16 mls/hr 03/09/20 13:45 03/10/20 18:26 Dobutamine 500 Mg/250 Ml IVPB 250 mls INF RALPH Administration 5 MCG/KG/MIN Insulin Human Lispro 0 units 03/06/20 04:13 03/11/20 10:30 Humalog SC 2 unit .MODERATE SLIDING SC PRN Administration Moderate Correctional Scale Lorazepam 2 mg 03/06/20 04:16 03/10/20 22:35 Ativan SLOW IVP 04/05/20 04:16 2 mg Q1H PRN Administration Breakthrough agitation Methylprednisolone Sodium Succinate 20 mg 03/11/20 09:00 03/11/20 09:16 Solu-Medrol IVP 20 mg BID RALPH Administration Pantoprazole Sodium 40 mg 03/10/20 21:00 03/11/20 09:15 Protonix IVP 40 mg Q12HR RALPH Administration Propofol 1,000 mg 03/06/20 04:16 03/11/20 03:26 Diprivan IV 04/05/20 04:16 1,000 mg INF PRN Administration TO ACHIEVE GOAL RASS Protocol Sodium Chloride 10 ml 03/10/20 21:00 03/11/20 09:17 Flush - Normal Saline IVF 10 ml Q12HR RALPH Administration - Exam Neck: negative: supple, symmetric, no JVD, no thyromegaly, no lymphadenopathy, no carotid bruit, JVD Heart: negative: RRR, no murmur, no gallops, no rubs, normal peripheral pulses, irregular, diminshed peripheral pulses, murmur present, II/IV, III/IV Respiratory: rales, rhonchi Gastrointestinal: negative: soft, non-tender, non-distended, normal bowel sounds , no palpable masses, no hepatomegaly, no splenomegaly, no bruit, no guarding, no rigidity, tender to palpation, distended, diminished bowl sounds, voluntary guarding Hosp A/P - Plan Chest X ray: worsening edema This is 64 year old female who presents with respiratory failure requiring intubation Acute hypoxic respiratory failure secondary to heart failure vs pneumonia vs COPD exacerbation - chest Xray on admission showing bilateral pneumonia. COVID 19 negative. Blood culture negative. SPutum culture growing gram negative chichi - continue ceftriaxone and azithromycin - troponin trending up 0.306. ECHO Shows EF 35-40% with inferolateral wall hypokinesis. Cardiology was consulted. Lasix increased to 40 mg IV BID. Entresto and spironolactone added today by cardiology. - steroids decreased to 20 mg IV q8 hours 03/08 pt on cpap trials and is doing well. extubation per pulm. 03/09 pt did not tolerate cpap for long. will continue careful diuresing 03/10 pt on dobutamine, will start lasix 40mg iv bid. will check bmp Microcytic anemia - Hb 10.9. Will check iron panel for tomorrow 03/09 will start oral iron and give one dose of iv iron. Hyponatremia - soduim 133, will continue to monitor MIRELLA - creatinine up to 1.2. Lasix was increased. UA shows proteinuria, no evidence of UTI 03/08 entresto held will monitor. will stop lasix her bun and creatinine has worsen. systolic heart failure new onset decompensation: pt on spironolactone per cardio will hold off on bb given her copd. cannot do MELISSA due to her mirella DM: will start pt on lantus bid with humalog 5 units tid. hyyperkalemia: will hold spironolactone and get ekg, calcium gluconate. 03/11 pt is still hyperkalemic her spironolactone has been discontinued and her K is still high. will check bmp later today.
[2020-03-11 15:08] LABS: Potassium 5.6 mmol/L (3.5-5.1)
[2020-03-11] MEDS: Lorazepam 2 MG/ML VIAL SLOW IVP PRN (15:23)
[2020-03-11] MEDS: Atorvastatin Calcium 40 MG TAB PO SCH (20:59)
[2020-03-11] MEDS: Insulin Glargine 7 UNITS in Pre-Filled Syringe SC SCH (21:01)
--- NOTE | 2020-03-11 21:05 | EKG ---
Test Reason : Blood Pressure : / mmHG Vent. Rate : 087 BPM Atrial Rate : 087 BPM P-R Int : 160 ms QRS Dur : 114 ms QT Int : 360 ms P-R-T Axes : 061 080 -03 degrees QTc Int : 433 ms Normal sinus rhythm with sinus arrhythmia Possible Inferior infarct , age undetermined Abnormal ECG No previous ECGs available Confirmed by Yo PENA ([id number]) on 03/11/2020 9:05:07 PM Referred By: ALEXANDRA Confirmed By:Yo PENA
[2020-03-12] MEDS: Lorazepam 2 MG/ML VIAL SLOW IVP PRN ×3 (00:08→21:51)
[2020-03-12] MEDS: Propofol 1,000 MG/100 ML VIAL IV PRN ×6 (03:30→23:36)
[2020-03-12] MEDS: DOBUTamine 500 mg/250 ml 250 ML IVPB SCH (03:53)
[2020-03-12 04:49] LABS: Band 5 % (5-11); Hemoglobin 11.4 g/dL (12.0-16.0); Lymphocytes 17 % (21-51); MDiff Complete? YES; Mean Corpuscular HGB CONC 30.8 g/dL (32.0-36.0); Mean Corpuscular Volume 74.7 fL (78.0-98.0); Mean Platelet Volume 8.9 fL (7.4-10.4); Microcytosis SLIGHT = 6-15 cells (100X) (0-5/hpf); Monocytes 3 % (0-10); Neutrophil 75 % (42-75); Platelet Count 372 thou/uL (130-400); Platelet Morphology Comment Appears Adequate; RBC Distribution Width 17.3 % (11.5-14.5); Red Blood Cell (RBC) Count 4.97 mill/uL (4.20-5.40); White Blood Cell (WBC) Count 9.9 thou/uL (4.8-10.8)
[2020-03-12 04:51] LABS: Anion Gap 13 mmol/L (10-20); BUN (Urea Nitrogen) 66 mg/dL (9.8-20.1); Calc. Creatinine Clearance 106 mL/min (70-130); Calcium 8.7 mg/dL (7.8-10.44); Carbon Dioxide 35 mmol/L (23-31); Chloride 93 mmol/L (98-107); Estimated GFR-MDRD 68; Glucose 187 mg/dL (80-115); Potassium 5.3 mmol/L (3.5-5.1); Sodium 136 mmol/L (136-145)
[2020-03-12] MEDS: HumaLOG 300 UNITS/3 ML VIAL SC PRN ×3 (04:56→17:08)
[2020-03-12 07:15] LABS: Base Excess (BEa) 13.6 mEq/L (-2.0 to +3.0); CO2 Tension 59.6 mmHg (35.0-45.0); Calcium, Ionized 1.17 mmol/L (1.12-1.30); Carboxyhemoglobin (COHb) 1.2 gm% (0.0-3.0); Hemoglobin (Hb) 12.2 g/dL (12.0-16.0); O2 Tension (PaO2), arterial 67.6 mmHg (> 80.0); Potassium - ABG Lab 4.47 mmol/L (3.70-5.30); pH, Arterial 7.45 (7.35-7.45)
[2020-03-12 07:17] LABS: Puncture Site RRA
--- NOTE | 2020-03-12 07:56 | RAD ---
SINGLE VIEW OF THE CHEST: COMPARISON: 03/11/2020. HISTORY: Pneumonia. FINDINGS: A single view of the chest shows an enlarged but stable cardiomediastinal silhouette. The endotrache al tube and NG tube are unchanged in position. Diffuse mixed stable alveolar/interstitial opacities are present. IMPRESSION: Stable multifocal infiltrates. POS: EAA
--- NOTE | 2020-03-12 08:00 | PRG ---
DATE OF SERVICE: 03/12/2020 TIME SPENT: 35 minutes of critical care time. SUBJECTIVE: The patient remains intubated on mechanical ventilation. I find her sedated this morning, almost too sedated. OBJECTIVE: VITAL SIGNS: Her temperature is 99.5, pulse 94, blood pressure 152/82, O2 saturation 94%. 24-hour intake 1655, output 3020. HEENT: Unremarkable. NECK: No JVD. LUNGS: Coarse rhonchi. CARDIOVASCULAR: S1 and S2 regular, on dobutamine drip. ABDOMEN: Soft and nontender. EXTREMITIES: No clubbing or cyanosis. She has generalized edema throughout. LABORATORY DATA: Sodium 136, potassium 5.3, chloride 93, CO2 of 35, BUN 66, creatinine 0.8, glucose 184. White blood cell count 9.9, hematocrit 37.1, and platelet count 372. ABG; pH of 7.45, pCO2 of 59, PO2 of 67 on a SIMV rate 12, tidal volume 500, PEEP 5, pressure support 10, and FiO2 of 45%. ASSESSMENT: 1. Polymicrobial pneumonia. 2. Acute respiratory failure, requiring mechanical ventilation. 3. Hyperkalemia secondary to spironolactone. 4. Low ejection fraction with congestive heart failure. PLAN: 1. We will go ahead and switch her over to pressure control ventilation, so that she has better control of her flow rate. 2. Would continue to hold the spironolactone indefinitely. 3. Does not appear to be ready for extubation at this time. 4. Sedation needs to be lightened. 5. I will decrease the steroid dose in hopes of getting that off by tomorrow. 6. Continue to trend the potassium level, 5.3 today is acceptable and probably does not need further Kayexalate at this time. Job ID: [id number]
[2020-03-12] MEDS ORDERED: Furosemide 40 MG/4 ML VIAL SLOW IVP SCH ×2 (09:00→14:00)
[2020-03-12] MEDS: Aspirin 81 mg Enteric Coated Tablet PO SCH (09:38)
[2020-03-12] MEDS: hydrALAZINE 25 MG TAB PO SCH ×3 (09:38→20:39)
[2020-03-12] MEDS: Ferrous Gluconate 324 MG TAB PO SCH (09:38)
[2020-03-12] MEDS: Enoxaparin Sodium 40 MG/0.4 ML SYRINGE SC SCH (09:39)
[2020-03-12] MEDS: Pantoprazole 40 MG VIAL IVP SCH ×2 (09:40→20:40)
[2020-03-12] MEDS: methylPREDNISolone Sod Succ 40 MG VIAL IVP SCH (09:40)
--- NOTE | 2020-03-12 14:02 | PDOC.HOSPP ---
- Subjective Encounter Date: 03/12/20 Encounter Time: 11:30 Subjective: pt intubated - Objective Vital Signs & Weight: Vital Signs (12 hours) Pulse Resp BP Pulse Ox 03/12/20 13:42 59 L 122/53 L 03/12/20 11:49 117 H 184/74 H 03/12/20 11:22 109 H 03/12/20 10:00 28 H 03/12/20 09:38 183 H 172/69 H 03/12/20 08:00 25 H 03/12/20 07:11 109 H 03/12/20 06:00 28 H 03/12/20 04:00 27 H 03/12/20 02:38 87 27 H 94 L 03/12/20 02:00 27 H Weight Admit Weight 204 lb Weight 212 lb 8.41 oz Most Recent Monitor Data Heart Rate from ECG 83 NIBP 160/73 NIBP BP-Mean 102 Respiration from ECG 39 SpO2 96 I&O: 03/11/20 03/12/20 03/13/20 06:59 06:59 06:59 Intake Total 3103.2 1655.3 300 Output Total 2460 3020 905 Balance 643.2 -1364.7 -605 Result Diagrams: 03/12/20 03:40 03/12/20 03:40 Additional Labs: Accuchecks 03/12/20 03/11/20 03/11/20 12:00 21:43 16:08 POC Glucose 179 H 145 H 225 H Hospitalist ROS - Review of Systems Other: unable to obtain - Medication Medications: Active Medications Generic Name Dose Route Start Last Admin Trade Name Rogerq PRN Reason Stop Dose Admin Acetaminophen 650 mg 03/06/20 04:05 03/12/20 12:05 Tylenol PO 650 mg Q4H PRN Administration Headache/Fever/Mild Pain (1-3) Albuterol/Ipratropium 3 ml 03/06/20 06:30 03/12/20 11:22 Duoneb NEB 3 ml [id number] RALPH Administration Aspirin 81 mg 03/07/20 09:00 03/12/20 09:38 Ecotrin PO 81 mg DAILY RALPH Administration Atorvastatin Calcium 40 mg 03/06/20 21:00 03/11/20 20:59 Lipitor PO 40 mg HS RALPH Administration Enoxaparin Sodium 40 mg 03/07/20 09:00 03/12/20 09:39 Lovenox SC 40 mg 0900 RALPH Administration Ferrous Gluconate 324 mg 03/10/20 08:00 03/12/20 09:38 Fergon PO 324 mg QAM-WM RALPH Administration Hydralazine HCl 25 mg 03/11/20 09:00 03/12/20 09:38 Apresoline PO 25 mg TID RALPH Administration Insulin Glargine 7 units/ 0.07 mls @ 0 mls/hr 03/06/20 21:00 03/11/20 21:01 Miscellaneous Medication SC 0.07 mls HS RALPH Administration Levofloxacin 500 mg/ Device 100 mls @ 100 mls/hr 03/09/20 13:00 03/12/20 12: 33 IVPB 100 mls Q24HR RALPH Administration Dobutamine HCl/Dextrose 250 mls @ 14.16 mls/hr 03/09/20 13:45 03/12/20 03:53 Dobutamine 500 Mg/250 Ml IVPB 250 mls INF RALPH Administration 5 MCG/KG/MIN Insulin Human Lispro 0 units 03/06/20 04:13 03/12/20 11:57 Humalog SC 2 unit .MODERATE SLIDING SC PRN Administration Moderate Correctional Scale Labetalol HCl 20 mg 03/06/20 04:04 03/12/20 11:49 Normodyne SLOW IVP 20 mg Q4H PRN Administration SBP > 160 use third Lorazepam 2 mg 03/06/20 04:16 03/12/20 13:51 Ativan SLOW IVP 04/05/20 04:16 2 mg Q1H PRN Administration Breakthrough agitation Methylprednisolone Sodium Succinate 20 mg 03/12/20 09:00 03/12/20 09:40 Solu-Medrol IVP 20 mg DAILY RALPH Administration Pantoprazole Sodium 40 mg 03/10/20 21:00 03/12/20 09:40 Protonix IVP 40 mg Q12HR RALPH Administration Propofol 1,000 mg 03/06/20 04:16 03/12/20 11:49 Diprivan IV 04/05/20 04:16 1,000 mg INF PRN Administration TO ACHIEVE GOAL RASS Protocol Sodium Chloride 10 ml 03/10/20 21:00 03/12/20 09:10 Flush - Normal Saline IVF 10 ml Q12HR RALPH Administration - Exam Heart: negative: RRR, no murmur, no gallops, no rubs, normal peripheral pulses, irregular, diminshed peripheral pulses, murmur present, II/IV, III/IV Respiratory: rales Gastrointestinal: negative: soft, non-tender, non-distended, normal bowel sounds , no palpable masses, no hepatomegaly, no splenomegaly, no bruit, no guarding, no rigidity, tender to palpation, distended, diminished bowl sounds, voluntary guarding Extremities: negative: no cyanosis, no clubbing, no edema, 1+ LE edema, 2+ LE edema, clubbing Skin: negative: normal turgor, no lesions, no rashes, tenting Hosp A/P - Plan Chest X ray: worsening edema This is 64 year old female who presents with respiratory failure requiring intubation Acute hypoxic respiratory failure secondary to heart failure vs pneumonia vs COPD exacerbation - chest Xray on admission showing bilateral pneumonia. COVID 19 negative. Blood culture negative. SPutum culture growing gram negative chichi - continue ceftriaxone and azithromycin - troponin trending up 0.306. ECHO Shows EF 35-40% with inferolateral wall hypokinesis. Cardiology was consulted. Lasix increased to 40 mg IV BID. Entresto and spironolactone added today by cardiology. - steroids decreased to 20 mg IV q8 hours 03/08 pt on cpap trials and is doing well. extubation per pulm. 03/09 pt did not tolerate cpap for long. will continue careful diuresing 03/10 pt on dobutamine, will start lasix 40mg iv bid. will check bmp Microcytic anemia - Hb 10.9. Will check iron panel for tomorrow 03/09 will start oral iron and give one dose of iv iron. Hyponatremia - soduim 133, will continue to monitor MIRELLA - creatinine up to 1.2. Lasix was increased. UA shows proteinuria, no evidence of UTI 03/08 entresto held will monitor. will stop lasix her bun and creatinine has worsen. systolic heart failure new onset decompensation: pt on spironolactone per cardio will hold off on bb given her copd. cannot do MELISSA due to her mirella DM: will start pt on lantus bid with humalog 5 units tid. hyyperkalemia: will hold spironolactone and get ekg, calcium gluconate. 03/11 pt is still hyperkalemic her spironolactone has been discontinued and her K is still high. will check bmp later today. 03/12 will give her one dose of lasix. hold spironalactone. steroids tapered. Not sure if her weight is accurate. will continue to diurese the pt.
[2020-03-12] MEDS: Atorvastatin Calcium 40 MG TAB PO SCH (20:40)
[2020-03-12] MEDS: Insulin Glargine 7 UNITS in Pre-Filled Syringe SC SCH (20:42)
[2020-03-13 04:00] LABS: Anion Gap 14 mmol/L (10-20); BUN (Urea Nitrogen) 45 mg/dL (9.8-20.1); Calc. Creatinine Clearance 120 mL/min (70-130); Calcium 8.5 mg/dL (7.8-10.44); Carbon Dioxide 37 mmol/L (23-31); Chloride 93 mmol/L (98-107); Estimated GFR-MDRD 81; Glucose 117 mg/dL (80-115); Sodium 140 mmol/L (136-145)
[2020-03-13 04:10] LABS: Band 2 % (5-11); Hemoglobin 11.9 g/dL (12.0-16.0); Hypochromia SLIGHT = 6-15 cells (100X) (0-5/hpf); Lymphocytes 11 % (21-51); MDiff Complete? YES; Mean Corpuscular HGB CONC 30.4 g/dL (32.0-36.0); Mean Corpuscular Hemoglobin 22.5 pg (27.0-31.0); Mean Corpuscular Volume 74.1 fL (78.0-98.0); Mean Platelet Volume 8.8 fL (7.4-10.4); Monocytes 7 % (0-10); Neutrophil 80 % (42-75); Platelet Count 375 thou/uL (130-400); Platelet Morphology Comment Appears Adequate; RBC Distribution Width 17.5 % (11.5-14.5); Red Blood Cell (RBC) Count 5.28 mill/uL (4.20-5.40); White Blood Cell (WBC) Count 10.1 thou/uL (4.8-10.8)
[2020-03-13] MEDS: Propofol 1,000 MG/100 ML VIAL IV PRN ×4 (04:23→19:35)
[2020-03-13] MEDS ORDERED: Furosemide 40 MG/4 ML VIAL SLOW IVP SCH (06:00)
[2020-03-13 07:32] LABS: Actual Bicarbonate (HCO3a) 40.9 mEq/L (22-28); Base Excess (BEa) 15.7 mEq/L (-2.0 to +3.0); CO2 Tension 51.8 mmHg (35.0-45.0); Calcium, Ionized 1.14 mmol/L (1.12-1.30); Carboxyhemoglobin (COHb) 1.1 gm% (0.0-3.0); Hemoglobin (Hb) 12.4 g/dL (12.0-16.0); O2 Tension (PaO2), arterial 70.2 mmHg (> 80.0); Potassium - ABG Lab 3.65 mmol/L (3.70-5.30); pH, Arterial 7.52 (7.35-7.45)
[2020-03-13 07:37] LABS: Puncture Site RRA
[2020-03-13] MEDS: Ferrous Gluconate 324 MG TAB PO SCH (07:47)
--- NOTE | 2020-03-13 07:58 | PRG ---
DATE OF SERVICE: 03/13/2020 35 minutes of critical care time. SUBJECTIVE: This patient remains intubated on mechanical ventilation. She is actually in even more respiratory distress somewhat she has been as demonstrated by tachypnea, low tidal volumes. OBJECTIVE: VITAL SIGNS: Temperature 99.3, pulse 82, blood pressure 159/64. She is currently on dobutamine drip at 2.5 mcg/kg/minute. Her intake yesterday was 1769, output 3680. Weight is inaccurate, only flow sheet. GENERAL: I find her very sedated on propofol. She will not open her eyes. She will not follow commands for me. HEENT: Otherwise, unremarkable. NECK: No adenopathy or JVD. LUNGS: Coarse rhonchi. CARDIOVASCULAR: S1 and S2. Regular. ABDOMEN: Soft and nontender to palpation. EXTREMITIES: No clubbing, cyanosis, or edema. LABORATORY DATA: Sodium 140, potassium 4, chloride 93, CO2 of 37, BUN 45, creatinine 0.7, glucose 117. Blood gas result pending at time of dictation. White blood cell count 10.1, hematocrit 39.1, and platelet count 375. ASSESSMENT: 1. Acute respiratory failure requiring mechanical ventilation. 2. Chronic obstructive pulmonary disease with exacerbation. 3. Polymicrobial pneumonia. 4. Hyperkalemia after exposure to spironolactone. 5. Low ejection fraction with congestive heart failure. 6. Failure to adequately control sedation and analgesia. PLAN: 1. I will go ahead and add a Duragesic patch 50 mcg/hour and see if that helps with some of tachypnea. 2. The Lasix dose is too high and is causing a contraction alkalosis, which will in turn cause elevation of her serum bicarbonate and a compensatory increase in her pCO2. Therefore, I think we should keep her dose of Lasix 40 mg IV daily and add Diamox 250 mg IV b.i.d. 3. Becoming increasingly discouraged in her clinical course and I feel like she may ultimately need to have a tracheostomy. We will discuss with the patient's . Job ID: [id number]
[2020-03-13] MEDS: methylPREDNISolone Sod Succ 40 MG VIAL IVP SCH (08:05)
[2020-03-13] MEDS: Pantoprazole 40 MG VIAL IVP SCH ×2 (08:05→21:07)
[2020-03-13] MEDS: Enoxaparin Sodium 40 MG/0.4 ML SYRINGE SC SCH (08:05)
[2020-03-13] MEDS: Aspirin 81 mg Enteric Coated Tablet PO SCH (08:06)
[2020-03-13] MEDS: hydrALAZINE 25 MG TAB PO SCH ×3 (08:06→21:07)
[2020-03-13] MEDS: acetaZOLAMIDE Sodium 500 mg Vial IVP SCH ×2 (08:08→21:06)
[2020-03-13] MEDS: fentaNYL 50 mcg/hour Patch TD SCH (08:11)
--- NOTE | 2020-03-13 08:20 | RAD ---
PORTABLE CHEST: DATE: 03/13/2020. PROVIDED CLINICAL HISTORY: Pneumonia. FINDINGS: Comparison 03/12/2020. Significant interval change with respect to the prior examination is not appar ent. IMPRESSION: As above. POS: WENDY
[2020-03-13] MEDS ORDERED: Furosemide 20 MG/2 ML VIAL IVP SCH (09:00)
[2020-03-13] MEDS: HumaLOG 300 UNITS/3 ML VIAL SC PRN ×2 (11:18→16:33)
--- NOTE | 2020-03-13 15:51 | PDOC.HOSPP ---
- Subjective Encounter Date: 03/13/20 Encounter Time: 10:30 Subjective: pt intubated - Objective Vital Signs & Weight: Vital Signs (12 hours) Pulse Pulse Pulse Resp BP BP BP 03/13/20 14:45 89 124/53 L 03/13/20 13:47 70 03/13/20 12:01 94 100 131/69 138/69 03/13/20 12:00 19 03/13/20 11:30 03/13/20 10:54 96 03/13/20 10:00 33 H 03/13/20 08:06 84 154/67 H 03/13/20 08:00 33 H 03/13/20 07:40 03/13/20 07:13 99 03/13/20 06:00 33 H 03/13/20 04:00 29 H Pulse Ox Pulse Ox Pulse Ox 03/13/20 14:45 03/13/20 13:47 03/13/20 12:01 98 99 03/13/20 12:00 03/13/20 11:30 99 03/13/20 10:54 03/13/20 10:00 03/13/20 08:06 03/13/20 08:00 03/13/20 07:40 97 03/13/20 07:13 03/13/20 06:00 03/13/20 04:00 Weight Admit Weight 204 lb Weight 172 lb 2.896 oz Most Recent Monitor Data Heart Rate from ECG 90 NIBP 143/55 NIBP BP-Mean 84 Respiration from ECG 20 SpO2 98 I&O: 03/12/20 03/13/20 03/14/20 06:59 06:59 06:59 Intake Total 1655.3 1769.1 320 Output Total 3020 3680 2980 Balance -1364.7 -1910.9 -2660 Result Diagrams: 03/13/20 03:36 03/13/20 03:36 Additional Labs: Accuchecks 03/13/20 03/12/20 03/12/20 11:19 21:49 17:08 POC Glucose 221 H 116 H 207 H Hospitalist ROS - Review of Systems Other: unable to obtain - Medication Medications: Active Medications Generic Name Dose Route Start Last Admin Trade Name Freq PRN Reason Stop Dose Admin Acetaminophen 650 mg 03/06/20 04:05 03/12/20 12:05 Tylenol PO 650 mg Q4H PRN Administration Headache/Fever/Mild Pain (1-3) Acetazolamide Sodium 250 mg 03/13/20 09:00 03/13/20 08:08 Diamox IVP 250 mg BID RALPH Administration Albuterol/Ipratropium 3 ml 03/06/20 06:30 03/13/20 13:47 Duoneb NEB 3 ml [id number] RALPH Administration Aspirin 81 mg 03/07/20 09:00 03/13/20 08:06 Ecotrin PO 81 mg DAILY RALPH Administration Atorvastatin Calcium 40 mg 03/06/20 21:00 03/12/20 20:40 Lipitor PO 40 mg HS RALPH Administration Enoxaparin Sodium 40 mg 03/07/20 09:00 03/13/20 08:05 Lovenox SC 40 mg 0900 RALPH Administration Fentanyl 50 mcg 03/13/20 09:00 03/13/20 08:11 Duragesic TD 50 mcg Q3D RALPH Administration Ferrous Gluconate 324 mg 03/10/20 08:00 03/13/20 07:47 Fergon PO 324 mg QAM-WM RALPH Administration Hydralazine HCl 25 mg 03/11/20 09:00 03/13/20 14:45 Apresoline PO 25 mg TID RALPH Administration Insulin Glargine 7 units/ 0.07 mls @ 0 mls/hr 03/06/20 21:00 03/12/20 20:42 Miscellaneous Medication SC 0.07 mls HS RALPH Administration Dobutamine HCl/Dextrose 250 mls @ 14.16 mls/hr 03/09/20 13:45 03/12/20 03:53 Dobutamine 500 Mg/250 Ml IVPB 250 mls INF RALPH Administration 5 MCG/KG/MIN Insulin Human Lispro 0 units 03/06/20 04:13 03/13/20 11:18 Humalog SC 4 unit .MODERATE SLIDING SC PRN Administration Moderate Correctional Scale Labetalol HCl 20 mg 03/06/20 04:04 03/12/20 11:49 Normodyne SLOW IVP 20 mg Q4H PRN Administration SBP > 160 use third Lorazepam 2 mg 03/06/20 04:16 03/12/20 21:51 Ativan SLOW IVP 04/05/20 04:16 2 mg Q1H PRN Administration Breakthrough agitation Methylprednisolone Sodium Succinate 20 mg 03/12/20 09:00 03/13/20 08:05 Solu-Medrol IVP 20 mg DAILY RALPH Administration Pantoprazole Sodium 40 mg 03/10/20 21:00 03/13/20 08:05 Protonix IVP 40 mg Q12HR RALPH Administration Propofol 1,000 mg 03/06/20 04:16 03/13/20 14:05 Diprivan IV 04/05/20 04:16 1,000 mg INF PRN Administration TO ACHIEVE GOAL RASS Protocol Sodium Chloride 10 ml 03/10/20 21:00 03/13/20 07:48 Flush - Normal Saline IVF 10 ml Q12HR RALPH Administration - Exam Neck: negative: supple, symmetric, no JVD, no thyromegaly, no lymphadenopathy, no carotid bruit, JVD Heart: negative: RRR, no murmur, no gallops, no rubs, normal peripheral pulses, irregular, diminshed peripheral pulses, murmur present, II/IV, III/IV Respiratory: negative: CTAB, no wheezes, no rales, no ronchi, normal chest expansion, no tachypnea, normal percussion, rales, rhonchi, tachypneic, wheezes Gastrointestinal: negative: soft, non-tender, non-distended, normal bowel sounds , no palpable masses, no hepatomegaly, no splenomegaly, no bruit, no guarding, no rigidity, tender to palpation, distended, diminished bowl sounds, voluntary guarding Hosp A/P - Plan Chest X ray: worsening edema This is 64 year old female who presents with respiratory failure requiring intubation Acute hypoxic respiratory failure secondary to heart failure vs pneumonia vs COPD exacerbation - chest Xray on admission showing bilateral pneumonia. COVID 19 negative. Blood culture negative. SPutum culture growing gram negative chichi - continue ceftriaxone and azithromycin - troponin trending up 0.306. ECHO Shows EF 35-40% with inferolateral wall hypokinesis. Cardiology was consulted. Lasix increased to 40 mg IV BID. Entresto and spironolactone added today by cardiology. - steroids decreased to 20 mg IV q8 hours 03/08 pt on cpap trials and is doing well. extubation per pulm. 03/09 pt did not tolerate cpap for long. will continue careful diuresing 03/10 pt on dobutamine, will start lasix 40mg iv bid. will check bmp Microcytic anemia - Hb 10.9. Will check iron panel for tomorrow 03/09 will start oral iron and give one dose of iv iron. Hyponatremia - soduim 133, will continue to monitor MIRELLA - creatinine up to 1.2. Lasix was increased. UA shows proteinuria, no evidence of UTI 03/08 entresto held will monitor. will stop lasix her bun and creatinine has worsen. systolic heart failure new onset decompensation: pt on spironolactone per cardio will hold off on bb given her copd. cannot do MELISSA due to her mirella DM: will start pt on lantus bid with humalog 5 units tid. hyyperkalemia: will hold spironolactone and get ekg, calcium gluconate. 03/11 pt is still hyperkalemic her spironolactone has been discontinued and her K is still high. will check bmp later today. 03/12 will give her one dose of lasix. hold spironalactone. steroids tapered. Not sure if her weight is accurate. will continue to diurese the pt. 03/13 pt more calm today, titrating her propofol down. pt is having good output with lasix. will continue daily. continue dobutamine.
[2020-03-13] MEDS: DOBUTamine 500 mg/250 ml 250 ML IVPB SCH (18:13)
[2020-03-13] MEDS: Lorazepam 2 MG/ML VIAL SLOW IVP PRN (19:39)
[2020-03-13] MEDS: Atorvastatin Calcium 40 MG TAB PO SCH (21:07)
[2020-03-13] MEDS: Insulin Glargine 7 UNITS in Pre-Filled Syringe SC SCH (21:08)
[2020-03-14] MEDS: Propofol 1,000 MG/100 ML VIAL IV PRN (02:39)
[2020-03-14 04:29] LABS: #Basophils 0.1 thou/uL (0.0-0.2); #Eosinphils 0.1 thou/uL (0.0-0.7); #Lymphocytes 1.8 thou/uL (1.20-3.40); #Monocytes 0.9 thou/uL (0.11-0.59); #Neutrophils 7.4 thou/uL (1.40-6.50); %Basophils 1.1 % (0.0-1.0); %Eosinophils 1.4 % (0.0-10.0); %Lymphocytes 17.6 % (21.0-51.0); %Neutrophils 70.9 % (42.0-75.0); Hemoglobin 11.4 g/dL (12.0-16.0); Mean Corpuscular HGB CONC 30.5 g/dL (32.0-36.0); Mean Corpuscular Volume 75.4 fL (78.0-98.0); Mean Platelet Volume 8.6 fL (7.4-10.4); Platelet Count 383 thou/uL (130-400); RBC Distribution Width 17.9 % (11.5-14.5); Red Blood Cell (RBC) Count 4.96 mill/uL (4.20-5.40); White Blood Cell (WBC) Count 10.4 thou/uL (4.8-10.8)
[2020-03-14 04:44] LABS: BUN (Urea Nitrogen) 40 mg/dL (9.8-20.1); Calc. Creatinine Clearance 92 mL/min (70-130); Calcium 8.9 mg/dL (7.8-10.44); Estimated GFR-MDRD 76; Glucose 129 mg/dL (80-115)
[2020-03-14 04:55] LABS: Anion Gap 9 mmol/L (10-20); Carbon Dioxide 38 mmol/L (23-31); Chloride 98 mmol/L (98-107); Potassium 3.2 mmol/L (3.5-5.1); Sodium 142 mmol/L (136-145)
[2020-03-14 07:27] LABS: Actual Bicarbonate (HCO3a) 37.2 mEq/L (22-28); Base Excess (BEa) 12.4 mEq/L (-2.0 to +3.0); CO2 Tension 48.6 mmHg (35.0-45.0); Calcium, Ionized 1.18 mmol/L (1.12-1.30); Carboxyhemoglobin (COHb) 0.8 gm% (0.0-3.0); Hemoglobin (Hb) 12.1 g/dL (12.0-16.0); O2 Tension (PaO2), arterial 80.8 mmHg (> 80.0); Potassium - ABG Lab 3.77 mmol/L (3.70-5.30)
--- NOTE | 2020-03-14 07:58 | PRG ---
DATE OF SERVICE: 03/14/2020 A 35 minutes of critical care time. SUBJECTIVE: The patient has been moved to a different room. She is more awake and interactive than she has been. OBJECTIVE: VITAL SIGNS: Her temperature is 99.2, pulse 86, blood pressure 147/69, and O2 saturation 97%. Twenty-four intake 1748 and output 4830. HEENT: Unremarkable. NECK: No adenopathy or JVD. CHEST: Fairly clear anteriorly. CARDIAC: S1 and S2. Regular. ABDOMEN: Soft. EXTREMITIES: No edema. LABORATORY DATA: Sodium 142, potassium 3.2, chloride 98, CO2 of 38, BUN 40, creatinine 0.7, and glucose 129. White blood cell count 10, hematocrit 37.4, and platelet count 383. ABG; pH of 7.5, pCO2 of 48, and pO2 of 80. Chest x-ray shows considerable improvement. ASSESSMENT: 1. Systolic heart failure. 2. Underlying severe chronic obstructive pulmonary disease. 3. Acute respiratory failure requiring mechanical ventilation. 4. Polymicrobial pneumonia. 5. Hyperkalemia after being on spironolactone, now hypokalemic. 6. Difficult to sedate. PLAN: She has done better since we started the Duragesic patch yesterday. She is actually diuresed a lot also. Her respiratory status improves much, improved today compared to where it has been. I will go ahead and proceed with a weaning trial to see if there is a possibility of extubation. Her antibiotics are scheduled to continue through the . Her potassium will be replaced. I would advise against starting spironolactone given our previous difficulties with hyperkalemia. Job ID: [id number]
--- NOTE | 2020-03-14 08:00 | RAD ---
PORTABLE CHEST: Date: 03/14/2020 HISTORY: Pneumonia. CCU follow-up. COMPARISON: 03/13/2020. FINDINGS: Hazy infiltrate in the right lower lung and possibly left lower lobe. Upper lung osuna remain clear. ET tube and NG tube unchanged. IMPRESSION: Stable chest findings. POS: [facility]
[2020-03-14] MEDS: Aspirin 81 mg Enteric Coated Tablet PO SCH (10:10)
[2020-03-14] MEDS: Enoxaparin Sodium 40 MG/0.4 ML SYRINGE SC SCH (10:10)
[2020-03-14] MEDS: hydrALAZINE 25 MG TAB PO SCH ×3 (10:11→21:31)
[2020-03-14] MEDS: Ferrous Gluconate 324 MG TAB PO SCH (10:11)
[2020-03-14] MEDS: Furosemide 40 MG/4 ML VIAL SLOW IVP SCH (10:12)
[2020-03-14] MEDS: acetaZOLAMIDE Sodium 500 mg Vial IVP SCH ×2 (10:12→21:31)
[2020-03-14] MEDS: Pantoprazole 40 MG VIAL IVP SCH ×2 (10:13→21:31)
[2020-03-14] MEDS: methylPREDNISolone Sod Succ 40 MG VIAL IVP SCH (10:13)
[2020-03-14 13:05] LABS: BUN (Urea Nitrogen) 30 mg/dL (9.8-20.1)
[2020-03-14 13:06] LABS: BUN (Urea Nitrogen) 68 mg/dL (9.8-20.1)
--- NOTE | 2020-03-14 13:16 | PDOC.HOSPP ---
- Subjective Encounter Date: 03/14/20 Encounter Time: 10:30 Subjective: pt extubated today - Objective Vital Signs & Weight: Vital Signs (12 hours) Temp Pulse Pulse Pulse Resp BP BP 03/14/20 12:00 99.1 F 03/14/20 11:19 91 85 168/83 H 03/14/20 11:10 20 03/14/20 11:09 92 28 H 03/14/20 10:11 85 127/62 03/14/20 08:10 03/14/20 08:00 21 H 03/14/20 07:05 85 127/62 03/14/20 07:03 82 12 03/14/20 07:00 99.1 F 03/14/20 06:00 17 03/14/20 04:00 99.2 F 12 03/14/20 02:51 73 15 170/103 H 03/14/20 02:15 30 H BP Pulse Ox Pulse Ox Pulse Ox 03/14/20 12:00 03/14/20 11:19 154/69 H 96 100 03/14/20 11:10 96 03/14/20 11:09 98 03/14/20 10:11 03/14/20 08:10 92 L 03/14/20 08:00 03/14/20 07:05 03/14/20 07:03 99 03/14/20 07:00 03/14/20 06:00 03/14/20 04:00 03/14/20 02:51 97 03/14/20 02:15 Weight Admit Weight 204 lb Weight 192 lb 3.889 oz Most Recent Monitor Data Heart Rate from ECG 97 NIBP 170/61 NIBP BP-Mean 97 Respiration from ECG 22 SpO2 96 I&O: 03/13/20 03/14/20 03/15/20 06:59 06:59 06:59 Intake Total 1769.1 1748.7 90 Output Total 3680 4830 940 Balance -1910.9 -3081.3 -850 Result Diagrams: 03/14/20 04:10 03/14/20 04:10 Additional Labs: Accuchecks 03/14/20 03/13/20 03/13/20 11:37 22:07 16:35 POC Glucose 165 H 120 H 198 H Hospitalist ROS - Review of Systems Cardiovascular: denies: chest pain, palpitations, orthopnea, paroxysmal noc. dyspnea, edema, light headedness, other Gastrointestinal: denies: nausea, vomiting, abdominal pain, diarrhea, constipation, melena, hematochezia, other Genitourinary: denies: dysuria, frequency, incontinence, hematuria, retention, other - Medication Medications: Active Medications Generic Name Dose Route Start Last Admin Trade Name Freq PRN Reason Stop Dose Admin Acetaminophen 650 mg 03/06/20 04:05 03/12/20 12:05 Tylenol PO 650 mg Q4H PRN Administration Headache/Fever/Mild Pain (1-3) Acetazolamide Sodium 250 mg 03/13/20 09:00 03/14/20 10:12 Diamox IVP 250 mg BID RALPH Administration Albuterol/Ipratropium 3 ml 03/06/20 06:30 03/14/20 11:09 Duoneb NEB 3 ml [id number] RALPH Administration Aspirin 81 mg 03/07/20 09:00 03/14/20 10:10 Ecotrin PO 81 mg DAILY RALPH Administration Atorvastatin Calcium 40 mg 03/06/20 21:00 03/13/20 21:07 Lipitor PO 40 mg HS RALPH Administration Enoxaparin Sodium 40 mg 03/07/20 09:00 03/14/20 10:10 Lovenox SC 40 mg 09 RALPH Administration Fentanyl 50 mcg 03/13/20 09:00 03/13/20 08:11 Duragesic TD 50 mcg Q3D RALPH Administration Ferrous Gluconate 324 mg 03/10/20 08:00 03/14/20 10:11 Fergon PO 324 mg QAM-WM RALPH Administration Furosemide 40 mg 03/14/20 09:00 03/14/20 10:12 Lasix SLOW IVP 40 mg DAILY RALPH Administration Hydralazine HCl 25 mg 03/11/20 09:00 03/14/20 10:11 Apresoline PO 25 mg TID RALPH Administration Insulin Glargine 7 units/ 0.07 mls @ 0 mls/hr 03/06/20 21:00 03/13/20 21:08 Miscellaneous Medication SC 0.07 mls HS RALPH Administration Dobutamine HCl/Dextrose 250 mls @ 14.16 mls/hr 03/09/20 13:45 03/13/20 18:13 Dobutamine 500 Mg/250 Ml IVPB 250 mls INF RALPH Administration 5 MCG/KG/MIN Insulin Human Lispro 0 units 03/06/20 04:13 03/13/20 16:33 Humalog SC 2 unit .MODERATE SLIDING SC PRN Administration Moderate Correctional Scale Labetalol HCl 20 mg 03/06/20 04:04 03/12/20 11:49 Normodyne SLOW IVP 20 mg Q4H PRN Administration SBP > 160 use third Levofloxacin 750 mg 03/14/20 06:00 03/14/20 05:30 Levaquin PER TUBE 03/16/20 06:01 750 mg 0600 RALPH Administration Lorazepam 2 mg 03/06/20 04:16 03/13/20 19:39 Ativan SLOW IVP 04/05/20 04:16 2 mg Q1H PRN Administration Breakthrough agitation Methylprednisolone Sodium Succinate 20 mg 03/12/20 09:00 03/14/20 10:13 Solu-Medrol IVP 20 mg DAILY RALPH Administration Pantoprazole Sodium 40 mg 03/10/20 21:00 03/14/20 10:13 Protonix IVP 40 mg Q12HR RALPH Administration Potassium Chloride 40 meq 03/06/20 04:18 03/14/20 05:30 Klor-Con PER TUBE 40 meq ASDIR PRN Administration FOR SERUM K+ 2.5-3.5 Propofol 1,000 mg 03/06/20 04:16 03/14/20 02:39 Diprivan IV 04/05/20 04:16 1,000 mg INF PRN Administration TO ACHIEVE GOAL RASS Protocol Sodium Chloride 10 ml 03/10/20 21:00 03/14/20 10:13 Flush - Normal Saline IVF 10 ml Q12HR RALPH Administration - Exam Neck: negative: supple, symmetric, no JVD, no thyromegaly, no lymphadenopathy, no carotid bruit, JVD Heart: negative: RRR, no murmur, no gallops, no rubs, normal peripheral pulses, irregular, diminshed peripheral pulses, murmur present, II/IV, III/IV Respiratory: negative: CTAB, no wheezes, no rales, no ronchi, normal chest expansion, no tachypnea, normal percussion, rales, rhonchi, tachypneic, wheezes Gastrointestinal: negative: soft, non-tender, non-distended, normal bowel sounds , no palpable masses, no hepatomegaly, no splenomegaly, no bruit, no guarding, no rigidity, tender to palpation, distended, diminished bowl sounds, voluntary guarding Extremities: 1+ LE edema Hosp A/P - Plan Chest X ray: worsening edema This is 64 year old female who presents with respiratory failure requiring intubation Acute hypoxic respiratory failure secondary to heart failure vs pneumonia vs COPD exacerbation - chest Xray on admission showing bilateral pneumonia. COVID 19 negative. Blood culture negative. SPutum culture growing gram negative chichi - continue ceftriaxone and azithromycin - troponin trending up 0.306. ECHO Shows EF 35-40% with inferolateral wall hypokinesis. Cardiology was consulted. Lasix increased to 40 mg IV BID. Entresto and spironolactone added today by cardiology. - steroids decreased to 20 mg IV q8 hours 03/08 pt on cpap trials and is doing well. extubation per pulm. 03/09 pt did not tolerate cpap for long. will continue careful diuresing 03/10 pt on dobutamine, will start lasix 40mg iv bid. will check bmp Microcytic anemia - Hb 10.9. Will check iron panel for tomorrow 03/09 will start oral iron and give one dose of iv iron. Hyponatremia - soduim 133, will continue to monitor MIRELLA - creatinine up to 1.2. Lasix was increased. UA shows proteinuria, no evidence of UTI 03/08 entresto held will monitor. will stop lasix her bun and creatinine has worsen. systolic heart failure new onset decompensation: pt on spironolactone per cardio will hold off on bb given her copd. cannot do MELISSA due to her mirella DM: will start pt on lantus bid with humalog 5 units tid. hyyperkalemia: will hold spironolactone and get ekg, calcium gluconate. 03/11 pt is still hyperkalemic her spironolactone has been discontinued and her K is still high. will check bmp later today. 03/12 will give her one dose of lasix. hold spironalactone. steroids tapered. Not sure if her weight is accurate. will continue to diurese the pt. 03/13 pt more calm today, titrating her propofol down. pt is having good output with lasix. will continue daily. continue dobutamine. 03/14 pt extubated today doing well. still on dobutamine drip. will start pt back on entresto and see how she does. was discontinued due to mirella and hyperkalemia which has resolved.
[2020-03-14] MEDS ORDERED: Potassium Chloride 40 MEQ in Sodium Chloride 0.9% 250 ML 250 ML IVPB SCH (14:45)
[2020-03-14] MEDS: Sacubitril 49 MG/Valsartan 51 MG TABLET PO SCH (21:29)
[2020-03-14] MEDS: Atorvastatin Calcium 40 MG TAB PO SCH (21:31)
[2020-03-14] MEDS: Insulin Glargine 7 UNITS in Pre-Filled Syringe SC SCH (21:32)
[2020-03-14] MEDS ORDERED: Sterile Water 10 ML ONE (21:34)
[2020-03-15 04:34] LABS: Anion Gap 13 mmol/L (10-20); BUN (Urea Nitrogen) 33 mg/dL (9.8-20.1); Calc. Creatinine Clearance 115 mL/min (70-130); Calcium 9.1 mg/dL (7.8-10.44); Carbon Dioxide 31 mmol/L (23-31); Chloride 104 mmol/L (98-107); Estimated GFR-MDRD 86; Glucose 103 mg/dL (80-115); Potassium 3.5 mmol/L (3.5-5.1); Sodium 144 mmol/L (136-145)
[2020-03-15 06:02] LABS: #Eosinphils 0.2 thou/uL (0.0-0.7); #Lymphocytes 1.9 thou/uL (1.20-3.40); #Monocytes 0.9 thou/uL (0.11-0.59); #Neutrophils 8.1 thou/uL (1.40-6.50); %Basophils 0.4 % (0.0-1.0); %Eosinophils 1.5 % (0.0-10.0); %Lymphocytes 16.8 % (21.0-51.0); %Monocytes 7.9 % (0.0-10.0); %Neutrophils 73.4 % (42.0-75.0); Anisocytosis SLIGHT = 6-15 cells (100X) (0-5/hpf); Hemoglobin 12.6 g/dL (12.0-16.0); MDiff Complete? YES; Mean Corpuscular HGB CONC 30.1 g/dL (32.0-36.0); Mean Corpuscular Hemoglobin 22.9 pg (27.0-31.0); Mean Corpuscular Volume 76.1 fL (78.0-98.0); Mean Platelet Volume 8.5 fL (7.4-10.4); Platelet Count 373 thou/uL (130-400); RBC Distribution Width 17.9 % (11.5-14.5); White Blood Cell (WBC) Count 11.1 thou/uL (4.8-10.8)
--- NOTE | 2020-03-15 08:59 | RAD ---
CHEST 1 VIEW PORTABLE: Date: 03/15/2020 HISTORY: Follow-up pneumonia. COMPARISON: 03/14/2020. FINDINGS: NG tube and endotracheal tubes have been removed. There is some persistent mostly linear parenchymal changes in the right base and left base and left mid lung zone with some mild vascular congestion. No new confluent process. IMPRESSION: Patchy mostly linear parenchymal changes in the left mid and lower lung zone and right base, probably representing at least some component of atelectasis or resolving pneumonia. Continue short-term foll ow-up. POS: [facility]
[2020-03-15] MEDS: hydrALAZINE 25 MG TAB PO SCH ×3 (09:41→20:08)
[2020-03-15] MEDS: Ferrous Gluconate 324 MG TAB PO SCH (09:41)
[2020-03-15] MEDS: Aspirin 81 mg Enteric Coated Tablet PO SCH (09:41)
[2020-03-15] MEDS: Enoxaparin Sodium 40 MG/0.4 ML SYRINGE SC SCH (09:44)
[2020-03-15] MEDS: acetaZOLAMIDE Sodium 500 mg Vial IVP SCH ×2 (09:45→21:06)
[2020-03-15] MEDS: methylPREDNISolone Sod Succ 40 MG VIAL IVP SCH (09:46)
[2020-03-15] MEDS: Pantoprazole 40 MG VIAL IVP SCH ×2 (09:47→21:06)
[2020-03-15] MEDS: Furosemide 40 MG/4 ML VIAL SLOW IVP SCH (09:48)
[2020-03-15] MEDS: Sacubitril 49 MG/Valsartan 51 MG TABLET PO SCH ×2 (09:56→21:01)
--- NOTE | 2020-03-15 10:42 | PRG ---
DATE OF SERVICE: 03/15/2020 SUBJECTIVE: Norah Giles was healthy. She is clinically doing well. She is smiling and laughing, and she is in no distress. OBJECTIVE: VITAL SIGNS: Heart rate is in the 70s, blood pressure 131/67, and respiratory rates in the teens. Intake and output was -3081 yesterday and -1990 today. LUNGS: Clear. HEART: Regular rhythm. ABDOMEN: Soft. EXTREMITIES: Without edema. LABORATORY DATA: Her chest x-ray still shows some haziness at the lung bases, but appears to be improving. IMPRESSION AND PLAN: Chronic obstructive pulmonary disease and congestive heart failure, status post mechanical ventilation, clinically stable. She can be moved to medical room. She has had no cardiac rhythm would mandate a need for telemetry monitoring. Job ID: [id number]
--- NOTE | 2020-03-15 11:59 | PDOC.CPN ---
- Subjective Date: 03/15/20 Time: 11:58 Interval history: states she is doing well Breathing better Less [place] - Objective Allergies/Adverse Reactions: Allergies Allergy/AdvReac Type Severity Reaction Status Date / Time morphine Allergy Verified 03/06/20 05:48 Sulfa (Sulfonamide Allergy Verified 03/06/20 05:48 Antibiotics) Visit Medications: Current Medications Acetaminophen (Tylenol) 650 mg PO Q4H PRN PRN Reason: Headache/Fever/Mild Pain (1-3) Last Admin: 03/12/20 12:05 Dose: 650 mg Acetazolamide Sodium (Diamox) 250 mg IVP BID [facility] Last Admin: 03/15/20 09:45 Dose: 250 mg Al Hydroxide/Mg Hydroxide (Maalox) 30 ml PO Q8H PRN PRN Reason: Indigestion Albuterol/Ipratropium (Duoneb) 3 ml NEB [id number] [facility] Last Admin: 03/15/20 11:07 Dose: 3 ml Aspirin (Ecotrin) 81 mg PO DAILY [facility] Last Admin: 03/15/20 09:41 Dose: 81 mg Atorvastatin Calcium (Lipitor) 40 mg PO HS [facility] Last Admin: 03/14/20 21:31 Dose: 40 mg Bisacodyl (Dulcolax) 10 mg PO DAILYPRN PRN PRN Reason: Constipation Bisacodyl (Dulcolax) 10 mg ND DAILYPRN PRN PRN Reason: Constipation Clonidine (Catapres) 0.1 mg PO BID PRN PRN Reason: SBP > 160 use second Dextrose/Water (Dextrose 50%) 25 gm SLOW IVP PRN PRN PRN Reason: Hypoglycemia Enoxaparin Sodium (Lovenox) 40 mg SC 0900 [facility] Last Admin: 03/15/20 09:44 Dose: 40 mg Fentanyl (Duragesic) 50 mcg TD Q3D [facility] Last Admin: 03/13/20 08:11 Dose: 50 mcg Ferrous Gluconate (Fergon) 324 mg PO QAM-[facility] Last Admin: 03/15/20 09:41 Dose: 324 mg Furosemide (Lasix) 40 mg SLOW IVP DAILY [facility] Last Admin: 03/15/20 09:48 Dose: 40 mg Glucagon (Glucagon) 1 mg IM PRN PRN PRN Reason: Hypoglycemia Hydralazine HCl (Apresoline) 10 mg SLOW IVP Q6H PRN PRN Reason: SBP GREATER THAN 160 Hydralazine HCl (Apresoline) 25 mg PO TID RALPH Last Admin: 03/15/20 09:41 Dose: 25 mg Dextrose/Water (D5w) 1,000 mls @ 0 mls/hr IV .Q0M PRN PRN Reason: Hypoglycemia Potassium Chloride 40 meq/ (Sodium Chloride) 270 mls @ 135 mls/hr IVPB ASDIR PRN PRN Reason: FOR SERUM K+ 2.5 - 3.5 Potassium Chloride 40 meq/ (Device) 100 mls @ 50 mls/hr IVPB ASDIR PRN PRN Reason: FOR SERUM K+ 2.5 - 3.5 Magnesium Sulfate 1 gm/ Sodium (Chloride) 102 mls @ 102 mls/hr IV PRN PRN PRN Reason: MAG LEVEL 1.4 - 2.0 Magnesium Sulfate 2 gm/ Device 50 mls @ 50 mls/hr IVPB ASDIR PRN PRN Reason: MAGNESIUM < 1.4 Potassium Phosphate 9 mmol/ (Sodium Chloride) 103 mls @ 25.75 mls/hr IVPB ASDIR PRN PRN Reason: Phosphate 1.0-1.8 Potassium Phosphate 12 mmol/ (Sodium Chloride) 254 mls @ 63.5 mls/hr IV ASDIR PRN PRN Reason: Serum phosphate 0.5-0.9 Potassium Phosphate 15 mmol/ (Sodium Chloride) 255 mls @ 63.75 mls/hr IV ASDIR PRN PRN Reason: Serum Phos < 0.5 Insulin Glargine 7 units/ (Miscellaneous Medication) 0.07 mls @ 0 mls/hr SC HS [facility] Last Admin: 03/14/20 21:32 Dose: Not Given Dobutamine HCl/Dextrose (Dobutamine 500 Mg/250 Ml) 250 mls @ 14.16 mls/hr IVPB INF [facility] Last Admin: 03/13/20 18:13 Dose: 250 mls Insulin Human Lispro (Humalog) 0 units SC .MODERATE SLIDING SC PRN PRN Reason: Moderate Correctional Scale Last Admin: 03/13/20 16:33 Dose: 2 unit Labetalol HCl (Normodyne) 20 mg SLOW IVP Q4H PRN PRN Reason: SBP > 160 use third Last Admin: 03/12/20 11:49 Dose: 20 mg Levofloxacin (Levaquin) 750 mg PER TUBE 0600 [facility] Stop: 03/16/20 06:01 Last Admin: 03/15/20 05:47 Dose: 750 mg Lorazepam (Ativan) 2 mg SLOW IVP Q1H PRN PRN Reason: Breakthrough agitation Stop: 04/05/20 04:16 Last Admin: 03/13/20 19:39 Dose: 2 mg Magnesium Hydroxide (Milk Of Magnesium) 30 ml PO Q8H PRN PRN Reason: Constipation Magnesium Hydroxide (Milk Of Magnesium) 30 ml PO DAILYPRN PRN PRN Reason: Constipation Magnesium Oxide (Magnesium Oxide) 400 mg PO BIDPRN PRN PRN Reason: FOR SERUM MAG 1.4 - 2.0 Magnesium Oxide (Magnesium Oxide) 800 mg PO PRN PRN PRN Reason: FOR SERUM MAG < 1.4 Methylprednisolone Sodium Succinate (Solu-Medrol) 20 mg IVP DAILY [facility] Last Admin: 03/15/20 09:46 Dose: 20 mg Miscellaneous Medication (Phos-Nak) 1 pkt PO TIDPRN PRN PRN Reason: FOR PHOS LEVEL 1.0 - 1.8 Miscellaneous Medication (Phos-Nak) 2 pkt PO TIDPRN PRN PRN Reason: FOR PHOS LEVEL 0.5 - 1.0 Ccu Electrolyte (Replacement Protocol) 0 each FS PRN PRN PRN Reason: FOR ELECTROLYTE REPLACEMENT Ondansetron HCl (Zofran) 4 mg IVP Q6H PRN PRN Reason: Nausea/Vomiting use 1st Pantoprazole Sodium (Protonix) 40 mg IVP Q12HR [facility] Last Admin: 03/15/20 09:47 Dose: 40 mg Potassium Chloride (K-Dur) 40 meq PO ASDIR PRN PRN Reason: FOR SERUM K+ 2.5 - 3.5 Potassium Chloride (Klor-Con) 40 meq PER TUBE ASDIR PRN PRN Reason: FOR SERUM K+ 2.5-3.5 Last Admin: 03/15/20 05:47 Dose: 40 meq Propofol (Diprivan) 1,000 mg IV INF PRN; Protocol PRN Reason: TO ACHIEVE GOAL RASS Stop: 04/05/20 04:16 Last Admin: 03/14/20 02:39 Dose: 1,000 mg Propofol (Diprivan Bolus) 20 mg IV Q5MIN PRN PRN Reason: BREAKTHROUGH AGITATION Stop: 04/05/20 04:16 Sacubitril/Valsartan (Entresto 49 Mg-51 Mg Tablet) 1 tab PO BID [facility] Last Admin: 03/15/20 09:56 Dose: 1 tab Senna/Docusate Sodium (Senokot S) 2 tab PO BID PRN PRN Reason: Constipation Sodium Chloride (Flush - Normal Saline) 10 ml IVF Q12HR [facility] Last Admin: 03/15/20 09:58 Dose: 10 ml Sodium Chloride (Flush - Normal Saline) 10 ml IVF PRN PRN PRN Reason: Saline Flush Vital Signs & Weight: Vital Signs Temp Pulse Resp BP BP Pulse Ox 03/15/20 11:07 65 18 93 L 03/15/20 10:58 98.4 F 65 18 123/89 93 L 03/15/20 09:41 65 131/67 03/15/20 06:51 99 03/15/20 06:48 65 20 99 03/15/20 04:00 98.4 F 03/15/20 02:05 99 03/15/20 02:04 71 12 99 03/15/20 00:00 98.7 F Admit Weight 204 lb Weight 190 lb 0.615 oz - Physical Exam General: alert & oriented x3 Neck: supple neck Cardiac: no murmur, regular rhythm Lungs: clear to auscultation Abdomen: unremarkable Extremities: no clubbing, no edema - Labs Result Diagrams: 03/15/20 03:35 03/15/20 03:35 Troponin/CKMB CK-MB (CK-2) 2.5 ng/mL (0-6.6) 03/07/20 15:31 Troponin I 0.257 ng/mL (< 0.028) H 03/07/20 15:31 - Assessment/Plan Assessment/Plan: Cardiomyopathy Respiroatry failure pneumonia Elevated troponin DM
--- NOTE | 2020-03-15 15:28 | PDOC.HOSPP ---
- Subjective Encounter Date: 03/15/20 Encounter Time: 13:00 Subjective: The patient says she is doing slightly better. She did cough up some phlegm and feels some congestion She got lasix this am and has had good urine output. She denies leg swelling . Reports feeling severely short of breath when she first came in. Reports active smoking but plans to quit once she leaves the hospital. - Objective Vital Signs & Weight: Vital Signs (12 hours) Temp Pulse Resp BP BP Pulse Ox 03/15/20 14:38 68 20 03/15/20 11:58 93 L 03/15/20 11:07 65 18 93 L 03/15/20 10:58 98.4 F 65 18 123/89 93 L 03/15/20 09:41 65 131/67 03/15/20 06:51 99 03/15/20 06:48 65 20 99 03/15/20 04:00 98.4 F Weight Admit Weight 204 lb Weight 190 lb 0.615 oz Most Recent Monitor Data Heart Rate from ECG 71 NIBP 131/67 NIBP BP-Mean 88 Respiration from ECG 20 SpO2 93 I&O: 03/14/20 03/15/20 03/16/20 06:59 06:59 06:59 Intake Total 1748.7 955 Output Total 5060 2945 Balance -3081.3 -1989 Result Diagrams: 03/15/20 03:35 03/15/20 03:35 Additional Labs: Accuchecks 03/15/20 03/14/20 03/14/20 11:39 21:29 16:28 POC Glucose 169 H 104 196 H Hospitalist ROS - Medication Medications: Active Medications Generic Name Dose Route Start Last Admin Trade Name Freq PRN Reason Stop Dose Admin Acetaminophen 650 mg 03/06/20 04:05 03/12/20 12:05 Tylenol PO 650 mg Q4H PRN Administration Headache/Fever/Mild Pain (1-3) Acetazolamide Sodium 250 mg 03/13/20 09:00 03/15/20 09:45 Diamox IVP 250 mg BID RALPH Administration Albuterol/Ipratropium 3 ml 03/06/20 06:30 03/15/20 14:38 Duoneb NEB 3 ml [id number] RALPH Administration Aspirin 81 mg 03/07/20 09:00 03/15/20 09:41 Ecotrin PO 81 mg DAILY RALPH Administration Atorvastatin Calcium 40 mg 03/06/20 21:00 03/14/20 21:31 Lipitor PO 40 mg HS RALPH Administration Enoxaparin Sodium 40 mg 03/07/20 09:00 03/15/20 09:44 Lovenox SC 40 mg 0900 RALPH Administration Fentanyl 50 mcg 03/13/20 09:00 03/13/20 08:11 Duragesic TD 50 mcg Q3D RALPH Administration Ferrous Gluconate 324 mg 03/10/20 08:00 03/15/20 09:41 Fergon PO 324 mg QAM-WM RALPH Administration Furosemide 40 mg 03/14/20 09:00 03/15/20 09:48 Lasix SLOW IVP 40 mg DAILY RALPH Administration Hydralazine HCl 25 mg 03/11/20 09:00 03/15/20 09:41 Apresoline PO 25 mg TID RALPH Administration Insulin Glargine 7 units/ 0.07 mls @ 0 mls/hr 03/06/20 21:00 03/14/20 21:32 Miscellaneous Medication SC Not Given HS RALPH Dobutamine HCl/Dextrose 250 mls @ 14.16 mls/hr 03/09/20 13:45 03/13/20 18:13 Dobutamine 500 Mg/250 Ml IVPB 250 mls INF RALPH Administration 5 MCG/KG/MIN Insulin Human Lispro 0 units 03/06/20 04:13 03/13/20 16:33 Humalog SC 2 unit .MODERATE SLIDING SC PRN Administration Moderate Correctional Scale Labetalol HCl 20 mg 03/06/20 04:04 03/12/20 11:49 Normodyne SLOW IVP 20 mg Q4H PRN Administration SBP > 160 use third Levofloxacin 750 mg 03/14/20 06:00 03/15/20 05:47 Levaquin PER TUBE 03/16/20 06:01 750 mg 0600 RALPH Administration Lorazepam 2 mg 03/06/20 04:16 03/13/20 19:39 Ativan SLOW IVP 04/05/20 04:16 2 mg Q1H PRN Administration Breakthrough agitation Methylprednisolone Sodium Succinate 20 mg 03/12/20 09:00 03/15/20 09:46 Solu-Medrol IVP 20 mg DAILY RALPH Administration Pantoprazole Sodium 40 mg 03/10/20 21:00 03/15/20 09:47 Protonix IVP 40 mg Q12HR RALPH Administration Potassium Chloride 40 meq 03/06/20 04:18 03/15/20 05:47 Klor-Con PER TUBE 40 meq ASDIR PRN Administration FOR SERUM K+ 2.5-3.5 Propofol 1,000 mg 03/06/20 04:16 03/14/20 02:39 Diprivan IV 04/05/20 04:16 1,000 mg INF PRN Administration TO ACHIEVE GOAL RASS Protocol Sacubitril/Valsartan 1 tab 03/14/20 21:00 03/15/20 09:56 Entresto 49 Mg-51 Mg Tablet PO 1 tab BID RALPH Administration Sodium Chloride 10 ml 03/10/20 21:00 03/15/20 09:58 Flush - Normal Saline IVF 10 ml Q12HR RALPH Administration Hosp A/P - Plan Chest X ray: worsening edema Chest X ray 03/15: linear parenchymal changes in the left mid and lower lung zone and right base This is 64 year old female who presents with respiratory failure requiring intubation Acute hypoxic respiratory failure secondary to systolic heart failure exacerbation with pseudomonas pneumonia vs COPD exacerbation - chest Xray on admission showing bilateral pneumonia. COVID 19 negative. Blood culture negative. SPutum culture growing pseudomonas. SHe is currently on day 6 of levaquin - troponin peaked at 0.3. ECHO Shows EF 35-40% with inferolateral wall hypokinesis and repeat ECHO showed the same. . Cardiology was consulted. - chest X ray 03/15 shows improving pneumonia vs atelectasis. Continue IV lasix 40 mg daily . On entresto 1 tablet bid - on prednisone 20 mg IV daily - steroids decreased to 20 mg IV q8 hours. Continue breathing treatments - she is still on 2L of oxygen, will continue to wean daily Hypertension - on hydralazine 25 mg po bid Iron deficiency anemia - ferritin level noted to be 35, iron sat of 4. - continue iron supplementation Hyponatremia - soduim 133, will continue to monitor MIRELLA -resolved
[2020-03-15] MEDS ORDERED: guaiFENesin ER 600 MG TAB PO SCH (16:00)
[2020-03-15] MEDS: HumaLOG 300 UNITS/3 ML VIAL SC PRN (17:46)
[2020-03-15] MEDS: Atorvastatin Calcium 40 MG TAB PO SCH (21:01)
[2020-03-15] MEDS: guaiFENesin ER 600 MG TAB PO SCH (21:02)
[2020-03-15] MEDS: Insulin Glargine 7 UNITS in Pre-Filled Syringe SC SCH (21:06)
[2020-03-16 06:02] LABS: #Basophils 0.2 thou/uL (0.0-0.2); #Eosinphils 0.2 thou/uL (0.0-0.7); #Lymphocytes 1.9 thou/uL (1.20-3.40); #Monocytes 0.5 thou/uL (0.11-0.59); #Neutrophils 9.4 thou/uL (1.40-6.50); %Basophils 1.3 % (0.0-1.0); %Eosinophils 1.4 % (0.0-10.0); %Lymphocytes 15.4 % (21.0-51.0); %Monocytes 4.4 % (0.0-10.0); %Neutrophils 77.6 % (42.0-75.0); Hemoglobin 13.2 g/dL (12.0-16.0); Mean Corpuscular HGB CONC 30.4 g/dL (32.0-36.0); Mean Corpuscular Hemoglobin 22.8 pg (27.0-31.0); Mean Corpuscular Volume 75.2 fL (78.0-98.0); Mean Platelet Volume 8.5 fL (7.4-10.4); Platelet Count 352 thou/uL (130-400); White Blood Cell (WBC) Count 12.1 thou/uL (4.8-10.8)
[2020-03-16 06:23] LABS: Anion Gap 13 mmol/L (10-20); BUN (Urea Nitrogen) 32 mg/dL (9.8-20.1); Calc. Creatinine Clearance 112 mL/min (70-130); Calcium 8.5 mg/dL (7.8-10.44); Carbon Dioxide 25 mmol/L (23-31); Chloride 104 mmol/L (98-107); Estimated GFR-MDRD 85; Glucose 95 mg/dL (80-115); Potassium 3.3 mmol/L (3.5-5.1); Sodium 139 mmol/L (136-145)
--- NOTE | 2020-03-16 07:09 | PDOC.CPN ---
- Subjective Date: 03/16/20 Time: 13:20 Interval history: Doing much better. Lost significant weight over last several days. Near BL - Objective Allergies/Adverse Reactions: Allergies Allergy/AdvReac Type Severity Reaction Status Date / Time morphine Allergy Verified 03/06/20 05:48 Sulfa (Sulfonamide Allergy Verified 03/06/20 05:48 Antibiotics) Visit Medications: Current Medications Acetaminophen (Tylenol) 650 mg PO Q4H PRN PRN Reason: Headache/Fever/Mild Pain (1-3) Last Admin: 03/12/20 12:05 Dose: 650 mg Acetazolamide Sodium (Diamox) 250 mg IVP BID [facility] Last Admin: 03/15/20 21:06 Dose: 250 mg Al Hydroxide/Mg Hydroxide (Maalox) 30 ml PO Q8H PRN PRN Reason: Indigestion Albuterol/Ipratropium (Duoneb) 3 ml NEB Q1OB-OM [facility] Last Admin: 03/16/20 06:32 Dose: 3 ml Aspirin (Ecotrin) 81 mg PO DAILY [facility] Last Admin: 03/15/20 09:41 Dose: 81 mg Atorvastatin Calcium (Lipitor) 40 mg PO HS [facility] Last Admin: 03/15/20 21:01 Dose: 40 mg Bisacodyl (Dulcolax) 10 mg PO DAILYPRN PRN PRN Reason: Constipation Bisacodyl (Dulcolax) 10 mg AR DAILYPRN PRN PRN Reason: Constipation Clonidine (Catapres) 0.1 mg PO BID PRN PRN Reason: SBP > 160 use second Dextrose/Water (Dextrose 50%) 25 gm SLOW IVP PRN PRN PRN Reason: Hypoglycemia Enoxaparin Sodium (Lovenox) 40 mg SC 0900 [facility] Last Admin: 03/15/20 09:44 Dose: 40 mg Fentanyl (Duragesic) 50 mcg TD Q3D [facility] Last Admin: 03/13/20 08:11 Dose: 50 mcg Ferrous Gluconate (Fergon) 324 mg PO QAM-WM [facility] Last Admin: 03/15/20 09:41 Dose: 324 mg Furosemide (Lasix) 40 mg SLOW IVP DAILY [facility] Last Admin: 03/15/20 09:48 Dose: 40 mg Glucagon (Glucagon) 1 mg IM PRN PRN PRN Reason: Hypoglycemia Guaifenesin (Mucinex) 600 mg PO Q12HR [facility] Last Admin: 03/15/20 21:02 Dose: 600 mg Hydralazine HCl (Apresoline) 10 mg SLOW IVP Q6H PRN PRN Reason: SBP GREATER THAN 160 Hydralazine HCl (Apresoline) 25 mg PO TID [facility] Last Admin: 03/15/20 20:08 Dose: Not Given Dextrose/Water (D5w) 1,000 mls @ 0 mls/hr IV .Q0M PRN PRN Reason: Hypoglycemia Magnesium Sulfate 2 gm/ Device 50 mls @ 50 mls/hr IVPB ASDIR PRN PRN Reason: MAGNESIUM < 1.4 Insulin Glargine 7 units/ (Miscellaneous Medication) 0.07 mls @ 0 mls/hr SC HS [facility] Last Admin: 03/15/20 21:06 Dose: 0.07 mls Dobutamine HCl/Dextrose (Dobutamine 500 Mg/250 Ml) 250 mls @ 14.16 mls/hr IVPB INF [facility] Last Admin: 03/13/20 18:13 Dose: 250 mls Insulin Human Lispro (Humalog) 0 units SC .MODERATE SLIDING SC PRN PRN Reason: Moderate Correctional Scale Last Admin: 03/15/20 17:46 Dose: 2 unit Labetalol HCl (Normodyne) 20 mg SLOW IVP Q4H PRN PRN Reason: SBP > 160 use third Last Admin: 03/12/20 11:49 Dose: 20 mg Magnesium Hydroxide (Milk Of Magnesium) 30 ml PO DAILYPRN PRN PRN Reason: Constipation Magnesium Oxide (Magnesium Oxide) 400 mg PO BIDPRN PRN PRN Reason: FOR SERUM MAG 1.4 - 2.0 Magnesium Oxide (Magnesium Oxide) 800 mg PO PRN PRN PRN Reason: FOR SERUM MAG < 1.4 Methylprednisolone Sodium Succinate (Solu-Medrol) 20 mg IVP DAILY [facility] Last Admin: 03/15/20 09:46 Dose: 20 mg Miscellaneous Medication (Phos-Nak) 1 pkt PO TIDPRN PRN PRN Reason: FOR PHOS LEVEL 1.0 - 1.8 Ccu Electrolyte (Replacement Protocol) 0 each FS PRN PRN PRN Reason: FOR ELECTROLYTE REPLACEMENT Ondansetron HCl (Zofran) 4 mg IVP Q6H PRN PRN Reason: Nausea/Vomiting use 1st Pantoprazole Sodium (Protonix) 40 mg IVP Q12HR [facility] Last Admin: 03/15/20 21:06 Dose: 40 mg Potassium Chloride (K-Dur) 40 meq PO ASDIR PRN PRN Reason: FOR SERUM K+ 2.5 - 3.5 Potassium Chloride (Klor-Con) 40 meq PER TUBE ASDIR PRN PRN Reason: FOR SERUM K+ 2.5-3.5 Last Admin: 03/15/20 05:47 Dose: 40 meq Propofol (Diprivan) 1,000 mg IV INF PRN; Protocol PRN Reason: TO ACHIEVE GOAL RASS Stop: 04/05/20 04:16 Last Admin: 03/14/20 02:39 Dose: 1,000 mg Propofol (Diprivan Bolus) 20 mg IV Q5MIN PRN PRN Reason: BREAKTHROUGH AGITATION Stop: 04/05/20 04:16 Sacubitril/Valsartan (Entresto 49 Mg-51 Mg Tablet) 1 tab PO BID [facility] Last Admin: 03/15/20 21:01 Dose: 1 tab Senna/Docusate Sodium (Senokot S) 2 tab PO BID PRN PRN Reason: Constipation Sodium Chloride (Flush - Normal Saline) 10 ml IVF Q12HR [facility] Last Admin: 03/15/20 21:06 Dose: 10 ml Sodium Chloride (Flush - Normal Saline) 10 ml IVF PRN PRN PRN Reason: Saline Flush Vital Signs & Weight: Vital Signs Temp Pulse Resp BP Pulse Ox 03/16/20 06:32 64 16 03/16/20 04:00 98.2 F 63 20 121/62 93 L 03/16/20 02:23 67 16 94 L 03/16/20 00:00 98.5 F 66 20 133/71 97 03/15/20 22:18 60 16 92 L 03/15/20 20:08 60 03/15/20 20:00 92 L 03/15/20 19:49 98.4 F 60 20 116/64 92 L Admit Weight 204 lb Weight 190 lb 0.615 oz - Physical Exam General: alert & oriented x3 Neck: no masses, no bruit Cardiac: no murmur, regular rate, regular rhythm Lungs: normal exam Neuro: grossly intact - Labs Result Diagrams: 03/16/20 05:52 03/16/20 05:52 Troponin/CKMB CK-MB (CK-2) 2.5 ng/mL (0-6.6) 03/07/20 15:31 Troponin I 0.257 ng/mL (< 0.028) H 03/07/20 15:31 - Assessment/Plan Assessment/Plan: Cardiomyopathy Respiroatry failure Pseudomona pneumonia Elevated troponin DM HTN Pt lost 26 lbs since admission per nurses weights on ASA, statin Pervious RI now resolved Add low dose ACEI Avoid BB for now given HR in the low 60's; may start as OP Abx Change IV lasix to PO lasix EF 35-40% FU with Recio as outpatient No other recommendations
--- NOTE | 2020-03-16 08:26 | RAD ---
PORTABLE CHEST ONE VIEW: HISTORY: Follow up pneumonia. FINDINGS/IMPRESSION: There is some clearing of the previously noted linear and parenchymal changes in the left mid and low er lung zone and right base. No new process. Continue short-term followup. POS: [facility]
[2020-03-16] MEDS: methylPREDNISolone Sod Succ 40 MG VIAL IVP SCH (08:30)
[2020-03-16] MEDS: Enoxaparin Sodium 40 MG/0.4 ML SYRINGE SC SCH (08:30)
[2020-03-16] MEDS: hydrALAZINE 25 MG TAB PO SCH ×3 (08:30→21:00)
[2020-03-16] MEDS: guaiFENesin ER 600 MG TAB PO SCH ×2 (08:30→21:00)
[2020-03-16] MEDS: Pantoprazole 40 MG VIAL IVP SCH ×2 (08:30→21:01)
[2020-03-16] MEDS: Aspirin 81 mg Enteric Coated Tablet PO SCH (08:31)
[2020-03-16] MEDS: Ferrous Gluconate 324 MG TAB PO SCH (08:31)
[2020-03-16] MEDS: fentaNYL 50 mcg/hour Patch TD SCH (08:42)
[2020-03-16] MEDS: acetaZOLAMIDE Sodium 500 mg Vial IVP SCH (09:16)
[2020-03-16] MEDS: Sacubitril 49 MG/Valsartan 51 MG TABLET PO SCH ×2 (09:23→21:00)
[2020-03-16] MEDS: Furosemide 40 MG/4 ML VIAL SLOW IVP SCH (11:00)
[2020-03-16] MEDS: HumaLOG 300 UNITS/3 ML VIAL SC PRN ×2 (11:54→16:57)
--- NOTE | 2020-03-16 16:44 | PDOC.HOSPP ---
- Subjective Encounter Date: 03/16/20 Encounter Time: 08:00 Subjective: The patient states that she feels much better. She has been weaned down to room air. She reports improvement in chest congestion. She says she stood up for the first time today in four days and got up to the chair with PT, but did not ambulate. She still has valdez in place a - Objective Vital Signs & Weight: Vital Signs (12 hours) Temp Pulse Resp BP Pulse Ox 03/16/20 16:00 98.3 F 79 20 125/70 97 03/16/20 15:00 82 16 96 03/16/20 14:19 83 93/55 L 98 03/16/20 10:56 68 16 03/16/20 09:00 93 L 03/16/20 07:50 97.5 F L 71 18 96/60 91 L 03/16/20 06:32 64 16 Weight Admit Weight 204 lb Weight 190 lb 0.615 oz Most Recent Monitor Data Heart Rate from ECG 71 NIBP 131/67 NIBP BP-Mean 88 Respiration from ECG 20 SpO2 93 I&O: 03/15/20 03/16/20 03/17/20 06:59 06:59 06:59 Intake Total 955 240 Output Total 6345 548 450 Balance -1990 -460 -450 Result Diagrams: 03/16/20 05:52 03/16/20 05:52 Additional Labs: Accuchecks 03/16/20 03/16/20 03/15/20 11:24 04:29 19:53 POC Glucose 153 H 100 102 03/15/20 16:47 POC Glucose 156 H Hospitalist ROS - Review of Systems Constitutional: denies: fever, chills - Medication Medications: Active Medications Generic Name Dose Route Start Last Admin Trade Name Freq PRN Reason Stop Dose Admin Acetaminophen 650 mg 03/06/20 04:05 03/12/20 12:05 Tylenol PO 650 mg Q4H PRN Administration Headache/Fever/Mild Pain (1-3) Albuterol/Ipratropium 3 ml 03/06/20 06:30 03/16/20 15:00 Duoneb NEB 3 ml [id number] RALPH Administration Aspirin 81 mg 03/07/20 09:00 03/16/20 08:31 Ecotrin PO 81 mg DAILY RALPH Administration Atorvastatin Calcium 40 mg 03/06/20 21:00 03/15/20 21:01 Lipitor PO 40 mg HS RALPH Administration Enoxaparin Sodium 40 mg 03/07/20 09:00 03/16/20 08:30 Lovenox SC 40 mg 0900 RALPH Administration Fentanyl 50 mcg 03/13/20 09:00 03/16/20 08:42 Duragesic TD Not Given Q3D RALPH Ferrous Gluconate 324 mg 03/10/20 08:00 03/16/20 08:31 Fergon PO 324 mg QAM-WM RALPH Administration Guaifenesin 600 mg 03/15/20 21:00 03/16/20 08:30 Mucinex PO 600 mg Q12HR RALPH Administration Hydralazine HCl 25 mg 03/11/20 09:00 03/16/20 14:19 Apresoline PO Not Given TID [facility] Insulin Glargine 7 units/ 0.07 mls @ 0 mls/hr 03/06/20 21:00 03/15/20 21:06 Miscellaneous Medication SC 0.07 mls HS RALPH Administration Insulin Human Lispro 0 units 03/06/20 04:13 03/16/20 11:54 Humalog SC 2 unit .MODERATE SLIDING SC PRN Administration Moderate Correctional Scale Labetalol HCl 20 mg 03/06/20 04:04 03/12/20 11:49 Normodyne SLOW IVP 20 mg Q4H PRN Administration SBP > 160 use third Methylprednisolone Sodium Succinate 20 mg 03/12/20 09:00 03/16/20 08:30 Solu-Medrol IVP 20 mg DAILY RALPH Administration Pantoprazole Sodium 40 mg 03/10/20 21:00 03/16/20 08:30 Protonix IVP 40 mg Q12HR [facility] Administration Potassium Chloride 40 meq 03/06/20 04:18 03/15/20 05:47 Klor-Con PER TUBE 40 meq ASDIR PRN Administration FOR SERUM K+ 2.5-3.5 Sacubitril/Valsartan 1 tab 03/14/20 21:00 03/16/20 09:23 Entresto 49 Mg-51 Mg Tablet PO Not Given BID RALPH Sodium Chloride 10 ml 03/10/20 21:00 03/16/20 08:31 Flush - Normal Saline IVF 10 ml Q12HR RALPH Administration - Exam General Appearance: NAD, awake alert Eye: PERRL, anicteric sclera ENT: normocephalic atraumatic, no oropharyngeal lesions Neck: no JVD Heart: RRR, no murmur, no gallops, no rubs Respiratory: no wheezes, no rales, no ronchi Respiratory - other findings: diminished breath sounds at bases Gastrointestinal: soft, non-tender, non-distended, normal bowel sounds, no palpable masses Extremities: no cyanosis, no clubbing, no edema Skin: normal turgor, no lesions, no rashes Neurological: cranial nerve grossly intact, normal sensation to touch, no focal deficits, no new deficit Musculoskeletal: normal tone, normal strength, no muscle wasting Psychiatric: normal affect, normal behavior, A&O x 3 Hosp A/P - Plan Chest X ray: worsening edema Chest X ray 03/15: linear parenchymal changes in the left mid and lower lung zone and right base This is 64 year old female who presents with respiratory failure requiring intubation Acute hypoxic respiratory failure secondary to systolic heart failure exacerbation with pseudomonas pneumonia and COPD exacerbation - resolved - chest Xray on admission showing bilateral pneumonia. COVID 19 negative. Blood culture negative. SPutum culture growing pseudomonas. - she has completed 7 days of levaquin - troponin peaked at 0.3. ECHO Shows EF 35-40% with inferolateral wall hypokinesis and repeat ECHO showed the same. She received IV lasix. Will switch to oral lasix tomorrow - decrease IV steroid to oral prednisone 40 mg - physical therapy to ambulate patient. Trial of ambulatory oxygen when patient can tolerate Hypokalemia - potassium 3.3, replenished today Leukocytosis - WBC up to 12.1. D/c IV steroid today Urinary retention - discontinue valdez catheter and perform voiding trial Hypertension - on hydralazine 25 mg po bid Iron deficiency anemia - ferritin level noted to be 35, iron sat of 4. - continue iron supplementation Hyponatremia -resolved MIRELLA -resolved
[2020-03-16] MEDS ORDERED: Potassium Chloride 20 MEQ TAB PO SCH (17:30)
[2020-03-16] MEDS: Atorvastatin Calcium 40 MG TAB PO SCH (21:00)
[2020-03-16] MEDS: Insulin Glargine 7 UNITS in Pre-Filled Syringe SC SCH (21:00)
[2020-03-17 05:58] LABS: Anion Gap 12 mmol/L (10-20); BUN (Urea Nitrogen) 34 mg/dL (9.8-20.1); Calc. Creatinine Clearance 96 mL/min (70-130); Calcium 8.5 mg/dL (7.8-10.44); Carbon Dioxide 25 mmol/L (23-31); Chloride 103 mmol/L (98-107); Estimated GFR-MDRD 78; Glucose 96 mg/dL (80-115); Potassium 3.1 mmol/L (3.5-5.1); Sodium 137 mmol/L (136-145)
[2020-03-17 06:12] LABS: Hemoglobin 12.6 g/dL (12.0-16.0); Mean Corpuscular Hemoglobin 22.9 pg (27.0-31.0); Mean Platelet Volume 8.9 fL (7.4-10.4); Platelet Count 371 thou/uL (130-400); RBC Distribution Width 18.4 % (11.5-14.5); Red Blood Cell (RBC) Count 5.48 mill/uL (4.20-5.40); White Blood Cell (WBC) Count 14.1 thou/uL (4.8-10.8)
[2020-03-17] MEDS ORDERED: Furosemide 40 MG TAB PO SCH (07:30)
[2020-03-17 07:46] VITALS: BP 96/47; TEMP 97.9
[2020-03-17] MEDS: Aspirin 81 mg Enteric Coated Tablet PO SCH (07:54)
[2020-03-17] MEDS: guaiFENesin ER 600 MG TAB PO SCH (07:54)
[2020-03-17] MEDS: Ferrous Gluconate 324 MG TAB PO SCH (07:54)
[2020-03-17] MEDS: hydrALAZINE 25 MG TAB PO SCH ×2 (07:54→15:24)
[2020-03-17] MEDS: Enoxaparin Sodium 40 MG/0.4 ML SYRINGE SC SCH (07:56)
[2020-03-17] MEDS: Pantoprazole 40 MG VIAL IVP SCH (07:59)
[2020-03-17] MEDS: Sacubitril 49 MG/Valsartan 51 MG TABLET PO SCH (07:59)
[2020-03-17] MEDS ORDERED: predniSONE 20 MG TAB PO SCH (08:00)
[2020-03-17 09:11] LABS: #Basophils 0.1 thou/uL (0.0-0.2); #Eosinphils 0.1 thou/uL (0.0-0.7); #Lymphocytes 1.9 thou/uL (1.20-3.40); #Monocytes 0.9 thou/uL (0.11-0.59); #Neutrophils 11.1 thou/uL (1.40-6.50); %Basophils 0.5 % (0.0-1.0); %Eosinophils 0.9 % (0.0-10.0); %Lymphocytes 13.6 % (21.0-51.0)
[2020-03-17] MEDS ORDERED: Potassium Chloride 20 MEQ TAB PO SCH (09:30)
[2020-03-17 10:05] LABS: MDiff Complete? YES; Microcytosis SLIGHT = 6-15 cells (100X) (0-5/hpf); Platelet Morphology Comment Appears Adequate; Polychromasia SLIGHT = 2-3 cells (100X) (0-2/hpf)
--- NOTE | 2020-03-17 10:34 | RAD ---
CHEST 1 VIEW: HISTORY: Followup pneumonia. COMPARISON: 03/16/2020. FINDINGS/IMPRESSION: Stable minimal increased linear and interstitial markings bilaterally. No new confluent pneumonia or other acute process. POS: [facility]
--- NOTE | 2020-03-17 12:26 | PRG ---
DATE OF SERVICE: 03/17/2020 SUBJECTIVE: She has been moved up to the 4th floor. She is awake, alert, appears to be doing fine. Has no complaints. OBJECTIVE: VITAL SIGNS: Temperature is 97.9, pulse 67, respirations 16, O2 saturations 91% on room air, blood pressure 96/47. HEENT: Unremarkable. NECK: No adenopathy or JVD. CHEST: Clear without wheezing or rhonchi. CARDIAC: S1 and S2 regular. ABDOMEN: Soft and nontender. EXTREMITIES: No edema. IMAGING STUDIES: Chest x-ray is clear. ASSESSMENT: 1. Chronic obstructive pulmonary disease exacerbation. 2. Status post respiratory failure requiring mechanical ventilation. PLAN: She is rapidly improving and I think is likely stable for discharge by tomorrow. Her daily x-ray could be stopped. She is on oral steroids and antibiotics. She has been counseled not to smoke. She needs to follow up in my office in about 1 to 2 months. Pulmonary has no further recommendations at this time. Job ID: [id number]
--- NOTE | 2020-03-17 14:38 | PRG ---
DATE OF SERVICE: 03/16/2020 SUBJECTIVE: Ms. Giles did well overnight. She has had no fever, chills, or sweats, or cough. She is smiling, just like she was yesterday, in no distress. OBJECTIVE: VITAL SIGNS: She is afebrile. Heart rate 68, respiratory rate 16, oximetry is 93% on 2 L. LUNGS: clear. HEART: Regular rhythm. ABDOMEN: Soft. EXTREMITIES: Without edema. LABORATORY DATA: White count 12.1, hemoglobin 13.2, platelets 352. Sodium 139, potassium 3.3, chloride 104, bicarb 25, BUN 32, creatinine 0.7. IMPRESSION: 1. Status post respiratory failure with mechanical ventilation with chronic obstructive pulmonary disease. 2. Congestive heart failure with an ejection fraction of 35% encouraged her to spend more time out of bed today. Carolyn will continue to follow. Job ID: [id number]
[2020-03-17 15:01] VITALS: BMI 27.2
--- NOTE | 2020-03-17 16:58 | DIS ---
DATE OF ADMISSION: 03/06/2020 DATE OF DISCHARGE: 03/17/2020 DISCHARGE DIAGNOSES: 1. Acute hypoxic respiratory failure secondary to Pseudomonas/Serratia pneumonia , acute systolic heart failure, chronic obstructive pulmonary disease exacerbation. 2. Hypokalemia. 3. Leukocytosis. 4. Hypertension. 5. Iron deficiency anemia. 6. Acute kidney injury. 7. Hyponatremia. BRIEF HISTORY OF PRESENT ILLNESS: This is a 64-year-old female with a history of COPD who presented to the emergency room with severe shortness of breath. EMS found her in a tripod position and saturations in the low 70s. She was intubated prior to arrival to the emergency room. Chest x-ray showed pulmonary edema. She was given Lasix and nitroglycerin paste. She had no fevers, cough, or COVID exposure. She was admitted to the CCU for further evaluation. HOSPITAL COURSE: Acute hypoxic respiratory failure secondary to acute systolic heart failure/Pseudomonas pneumonia/COPD exacerbation: The patient was tested for COVID and ruled out. She was initially started on IV ceftriaxone and azithromycin. Her sputum culture came back positive for Serratia marcescens and Pseudomonas. The patient did receive 7 days of Levaquin. She did have troponins that had trended up to 0.3. ECHO 03/06 showed an EF of 35 % to 40% with inferolateral hypokinesis. Repeat echocardiogram done 03/13 showed the same. She was diuresed with IV Lasix and eventually was extubated and completely weaned off oxygen by the time of discharge. She was started on Entresto by Cardiology. She was also treated with a COPD exacerbation with IV steroids. The patient did report longstanding history of smoking, but reports that she will quit smoking on discharge. She will be discharged with a steroid taper. She will also be continued on Levaquin for 7 additional days, given that her white count had gone up to 14.1. However, the patient is afebrile at this time and feels better. She ambulated with a walker with physical therapy and did well. She should follow up with Dr. Nelson in a month and get a repeat chest x-ray in 6 weeks. She can repeat CBC in one week as well. Iron deficiency anemia: The patient had a ferritin level checked, which was 36. Her iron sat was 4. She was started on iron sulfate. Her hemoglobin was normal on discharge at 12.6. This can be reassessed by her PCP. Hypokalemia: The patient had a potassium of 3.1 on the day of discharge, likely secondary to Lasix. She was discharged on potassium supplementation p.r.n. Hypertension: The patient was started on hydralazine 25 mg b.i.d. while in the hospital. She was also discharged with Lasix 40 mg daily and Entresto. She should have repeat BMP in 1 week. Acute kidney injury: The patient had a creatinine of 1.25, which resolved to 0.75 on the day of discharge. UA showed 200 of protein, but negative nitrite and negative leukocyte esterase. Urine culture and blood cultures were normal. Tobacco abuse: patient refused nicotine patch on discharge and states she will quit smoking on her own. DISCHARGE PHYSICAL EXAMINATION: VITAL SIGNS: Temp is 97.6, HR is 72, respiratory rate 18, and O2 saturation 93% on room air. GENERAL: The patient is alert, awake, and oriented x3. CVS: Regular rate and rhythm with no murmurs, rubs, or gallops. LUNGS: Clear to auscultation bilaterally. ABDOMEN: Positive bowel sounds. Soft, nontender, and nondistended. EXTREMITIES: No edema. PERTINENT LABORATORY DATA: CBC 03/17: White count 14.1, hemoglobin 12.6, hematocrit 40.6, and platelet count of 371. BMP 03/17: potassium of 3.1. LFTs: AST is 44, ALT is 33, and alkaline phosphatase is 85. Procalcitonin: 0.12. BNP: 1106. UA 03/06: Turbid urine with 200 protein, 500 glucose, 1+ blood, 4 to 6 rbc's, and 7 in 10 white blood cells. COVID PCR 03/06: Negative. IMAGING: Echo 03/06: EF 35% to 40%, inferolateral hypokinesis, grade 2/3 diastolic dysfunction. Moderate MR. Mild TR. Echo 03/13: EF 35% to 40%. Inferior wall is akinetic. Moderate MR. Mild TR. Chest x-ray 03/06: Bibasilar pleural and parenchymal lung changes greater at the right lung base secondary to bilateral pleural effusions and atelectasis. Cardiomegaly. Chest x-ray 03/17: Stable minimal increased linear interstitial markings bilaterally. No new confluent pneumonia or other acute process. DISCHARGE CONDITION: Stable for discharge home. ACTIVITY: As tolerated with a walker. DIET: Heart healthy diet. DISCHARGE MEDICATIONS: New prescriptions; 1. Levaquin 750 mg p.o. daily. 2. Potassium 20 mg p.o. daily p.r.n. 3. Prednisone taper 40 mg x3 days, 30 mg x3 days, and 20 mg x3 days. 4. Hydralazine 25 mg p.o. t.i.d. 5. Entresto one tablet p.o. b.i.d. 6. Iron sulfate 324 mg p.o. q.a.m. 7. Lasix 40 mg p.o. daily. 8. Atorvastatin 40 mg p.o. at bedtime. All other home medications were continued. DISCHARGE INSTRUCTIONS: The patient should follow up with Dr. Nelson in 1 month with a repeat chest x-ray. She should follow up with Dr. Recio in 1 to 2 weeks. She was advised to quit smoking. Job ID: [id number] [facility]
--- NOTE | 2020-03-19 05:40 | PQF ---
[facility]ESSIE WAD[facility]LL [facility] [id number] CLINICAL DOCUMENTATION CLARIFICATION FORM: POST DISCHARGE Addendum to original discharge summary date: ____ Late entry note date: __ DATE: 03/19/20 ATTN:Milly Olmedo Please exercise your independent, professional judgment in responding to the clarification form. Clinical indicators are provided on the bottom of this form for your review Can you please further clarify if Sepsis is ruled in or ruled out? Sepsis [ X] Ruled in diagnosis [ ] Continue to treat [ ] Resolved [ ] Ruled out diagnosis [ ] Cannot rule out diagnosis [ ] Other diagnosis [ ] Unable to determine In addition, please specify: Present on Admission (POA): [ ] Yes [ ] No [ ] Unable to determine For continuity of documentation, please document condition throughout progress notes and discharge summary. Thank You. CLINICAL INDICATORS - SIGNS / SYMPTOMS / LABS H and P pg.1- Initial temperature 95.7, leukocytosis noted H and P pg.3- EKG rate 105, sinus tachycardia H and P pg.4- hypothermia, sepsis- presume respiratory etiology PN 03/09- increasing Tachycardic, tachypneic and dropped her oxygen saturations PN 5 18- Bronchoscopic culture with Pseudomonas and Serratia Laboratory WBC- 15.9H, 9.6, 14.3H, 11.2H Event note 03/06 acute hypoxic respiratory failure secondary to bilateral pneumonia vs heart failure vs COPD exacerbation Vital Signs 03/06: Temp=99.1 BP=92/56 Jzwlw=543 Respi=28 Labs Lactate: 03/06=1.6 Labs Procalcitonin: 03/09=0.12 Collected 03/06 Blood culture:no growth RISK FACTORS COPD exacerbation- H and P pg.3 Acute CHF- H and P pg.3 Long standing tobacco abuse- PN pg.2 5/16 Anemia- Hospitalist PN 03/08 pg.7 Pseudomonas/ Serratia pneumonia- H and P pg.3 64 years old female HP 03/06 DM HP 03/06 Smoker ED Notes 03/06 Obesity Consult 03/07 TREATMENTS Pulmonary Consult- Dr. Nelson 03/07 Chest X ray 03/06 Chest/ Thorax CTA 03/06 Intubation- ED Provider notes Ventilatory Support 03/09 PN Respiratory culture- Microbiology Blood culture- 03/06 IV Fluids- MAR Levophed 250mg IV- MAR Azithromycin 500mg IV- MAR Rocephin 1gm IV- MAR (This form is maintained as a part of the permanent medical record) 2014 [employer]. All Rights Reserved [email or web address]
== END 2020-03-17 16:26 | disposition home or self-care (01) | DRG 870 ==
LOC: ERS 02:56 → CCU 04:34 → T4-A 03-15 10:52
PROVIDERS: ADMIT Internal Medicine; ATTEND Internal Medicine
PROC: 5A1955Z Respiratory Ventilation, Greater than 96 Consecutive Hours (ICD-10-PCS; principal; 2020-03-06)
PROC: 0BH17EZ Insertion of Endotracheal Airway into Trachea, Via Natural or Artificial Opening (ICD-10-PCS; 2020-03-06)
PROC: 3E033XZ Introduction of Vasopressor into Peripheral Vein, Percutaneous Approach (ICD-10-PCS; 2020-03-06)
DX: A41.52 Sepsis due to Pseudomonas (principal); J15.1 Pneumonia due to Pseudomonas; J96.01 Acute respiratory failure with hypoxia; J96.02 Acute respiratory failure with hypercapnia; I50.21 Acute systolic (congestive) heart failure; J15.6 Pneumonia due to other Gram-negative bacteria; J44.1 Chronic obstructive pulmonary disease with (acute) exacerbation; J44.0 Chronic obstructive pulmonary disease with (acute) lower respiratory infection; N17.9 Acute kidney failure, unspecified; E87.1 Hypo-osmolality and hyponatremia; I42.9 Cardiomyopathy, unspecified; Z20.828 Contact with and (suspected) exposure to other viral communicable diseases; A41.53 Sepsis due to Serratia; D50.9 Iron deficiency anemia, unspecified; I11.0 Hypertensive heart disease with heart failure; E11.9 Type 2 diabetes mellitus without complications; F17.210 Nicotine dependence, cigarettes, uncomplicated; E66.9 Obesity, unspecified; E87.5 Hyperkalemia; E87.6 Hypokalemia; T50.0X5A Adverse effect of mineralocorticoids and their antagonists, initial encounter; Z68.27 Body mass index [BMI] 27.0-27.9, adult; Z79.899 Other long term (current) drug therapy; Z79.84 Long term (current) use of oral hypoglycemic drugs; Z79.82 Long term (current) use of aspirin
CPT/HCPCS: 36415; 36416; 51702; 71045; 71275; 80048; 80053; 81003; 81015; 82553; 82728; 82805; 83540; 83550; 83605; 83735; 83880; 84145; 84484; 85025; 85379; 87040; 87070; 87077; 87086; 87186; 87205; 87635; 93005; 93010; 93306; 93798; 94002; 94003; 94640; 96365; 96375; C9113; J0456; J0696; J1120; J1250; J1650; J1815; J1940; J1956; J2060; J2704; J2916; J2920; J2930; J3010; J3480; J3490; J7030; J7050; J7512; J7620; Q9967; U0003

== ENCOUNTER 2022-10-11 11:19 | Inpatient (IN) | payer MEDICARE, SELFPAY ==
[2022-10-11] MEDS ORDERED: methylPREDNISolone Sod Succ/PF 125 MG/2 ML VIAL ONE (11:33)
[2022-10-11 12:03] LABS: #Eosinphils 0.3 thou/uL (0.0-0.7); #Lymphocytes 1.1 thou/uL (1.20-3.40); #Monocytes 0.4 thou/uL (0.11-0.59); #Neutrophils 11.9 thou/uL (1.40-6.50); %Eosinophils 2.3 % (0.0-10.0); %Lymphocytes 8.3 % (21.0-51.0); %Neutrophils 86.4 % (42.0-75.0); Hemoglobin 9.4 g/dL (12.0-16.0); Mean Corpuscular HGB CONC 29.1 g/dL (32.0-36.0); Mean Corpuscular Hemoglobin 20.4 pg (27.0-31.0); Mean Corpuscular Volume 70.1 fl (78.0-98.0); Mean Platelet Volume 7.7 fL (7.4-10.4); Platelet Count 602 10x3/uL (130-400); RBC Distribution Width 16.7 % (11.5-14.5); White Blood Cell (WBC) Count 13.8 10x3/uL (4.8-10.8)
[2022-10-11 12:22] LABS: ALT (SGPT) 15 U/L (8-55); AST (SGOT) 24 U/L (5-34); Albumin 3.9 g/dL (3.4-4.8); Alkaline Phosphatase 65 U/L (40-110); Anion Gap 15 mmol/L (10-20); BUN (Urea Nitrogen) 21 mg/dL (9.8-20.1); Bilirubin, Total 0.4 mg/dL (0.2-1.2); Calc. Creatinine Clearance 0 mL/min (70-130); Calcium 9.2 mg/dL (7.8-10.44); Carbon Dioxide 24 mmol/L (23-31); Chloride 109 mmol/L (98-107); Estimated GFR 48; Globulin 3.2 g/dL (2.4-3.5); Glucose 220 mg/dL (80-115); Protein, Total 7.1 g/dL (5.8-8.1); Sodium 143 mmol/L (136-145)
[2022-10-11 12:23] LABS: Hypochromia MODERATE=16-30 cells (100X) (0-5/hpf); MDiff Complete? YES; Microcytosis MODERATE=15-30 cells (100X) (0-5/hpf); Ovalocytes SLIGHT = 2-5 cells (100X) (0-1/hpf); Platelet Morphology Comment Appears Increased; Polychromasia SLIGHT = 2-3 cells (100X) (0-2/hpf)
[2022-10-11 12:30] LABS: SARS-CoV-2 NAA Rapid Test Not Detected (NotDetected)
[2022-10-11 12:42] LABS: CKMB 5.9 ng/mL (0-6.6)
[2022-10-11] MEDS ORDERED: Aspirin Chewable 81 MG TAB ONE (13:15)
[2022-10-11] MEDS ORDERED: Acetaminophen 325 MG TAB PO PRN (14:47)
[2022-10-11 16:01] LABS: Troponin I 0.732 ng/mL (< 0.028)
[2022-10-11] MEDS ORDERED: hydrALAZINE 25 MG TAB ONE (16:28)
[2022-10-11] MEDS: hydrALAZINE 25 MG TAB PO SCH ×2 (16:37→22:19)
[2022-10-11] MEDS ORDERED: methylPREDNISolone Sod Succ 40 MG VIAL ONE (18:01)
[2022-10-11] MEDS: methylPREDNISolone Sod Succ 40 MG VIAL IVP SCH ×2 (18:09→23:54)
[2022-10-11] MEDS ORDERED: Aspirin 81 mg Enteric Coated Tablet PO SCH (19:00)
[2022-10-11 20:18] LABS: Troponin I 1.328 ng/mL (< 0.028)
[2022-10-11] MEDS ORDERED: Famotidine 20 MG TAB PO SCH (21:00)
[2022-10-11 21:49] VITALS: BMI 34.7
[2022-10-11] MEDS ORDERED: Enoxaparin Sodium 100 MG/ML SYRINGE SC SCH (22:00)
[2022-10-11] MEDS: Mometasone/Formoterol 200/5 60 PUFF INH SCH (22:01)
[2022-10-11] MEDS: metFORMIN 500 MG TAB PO SCH (22:19)
[2022-10-11] MEDS: Sacubitril 49 MG/Valsartan 51 MG TABLET PO SCH (22:19)
[2022-10-11 22:22] LABS: Troponin I 1.348 ng/mL (< 0.028)
[2022-10-12 01:44] LABS: Troponin I 1.399 ng/mL (< 0.028)
[2022-10-12 05:07] LABS: #Lymphocytes 0.6 thou/uL (1.20-3.40); #Monocytes 0.1 thou/uL (0.11-0.59); #Neutrophils 4.1 thou/uL (1.40-6.50); %Eosinophils 0.2 % (0.0-10.0); %Lymphocytes 11.5 % (21.0-51.0); %Monocytes 2.1 % (0.0-10.0); %Neutrophils 86.2 % (42.0-75.0); Hemoglobin 8.6 g/dL (12.0-16.0); Mean Corpuscular HGB CONC 30.9 g/dL (32.0-36.0); Mean Corpuscular Hemoglobin 21.1 pg (27.0-31.0); Mean Platelet Volume 7.4 fL (7.4-10.4); Platelet Count 560 10x3/uL (130-400); RBC Distribution Width 16.4 % (11.5-14.5); Red Blood Cell (RBC) Count 4.11 mill/uL (4.20-5.40); White Blood Cell (WBC) Count 4.8 10x3/uL (4.8-10.8)
[2022-10-12] MEDS: methylPREDNISolone Sod Succ 40 MG VIAL IVP SCH (05:07)
[2022-10-12 05:29] LABS: Anion Gap 15 mmol/L (10-20); BUN (Urea Nitrogen) 19 mg/dL (9.8-20.1); Calc. Creatinine Clearance 81 mL/min (70-130); Calcium 9.1 mg/dL (7.8-10.44); Carbon Dioxide 24 mmol/L (23-31); Chloride 105 mmol/L (98-107); Estimated GFR 61; Glucose 215 mg/dL (80-115); Potassium 4.5 mmol/L (3.5-5.1); Sodium 139 mmol/L (136-145)
[2022-10-12] MEDS: Mometasone/Formoterol 200/5 60 PUFF INH SCH ×2 (07:32→18:38)
[2022-10-12] MEDS: Bupropion 150 MG XL TAB PO SCH (08:51)
[2022-10-12] MEDS: Ferrous Gluconate 324 MG TAB PO SCH (08:51)
[2022-10-12] MEDS: hydrALAZINE 25 MG TAB PO SCH ×3 (08:51→20:49)
[2022-10-12] MEDS: Aspirin 81 mg Enteric Coated Tablet PO SCH (08:51)
[2022-10-12] MEDS: Sacubitril 49 MG/Valsartan 51 MG TABLET PO SCH ×2 (08:52→20:49)
[2022-10-12] MEDS: metFORMIN 500 MG TAB PO SCH ×2 (08:52→16:22)
[2022-10-12] MEDS ORDERED: Enoxaparin Sodium 100 MG/ML SYRINGE SC SCH (09:00)
[2022-10-12] MEDS ORDERED: Enoxaparin Sodium 40 MG/0.4 ML SYRINGE SC SCH (09:00)
[2022-10-12 09:40] LABS: Magnesium 2.3 mg/dL (1.6-2.6)
[2022-10-12] MEDS ORDERED: Furosemide 40 MG TAB PO SCH (11:45)
[2022-10-12] MEDS ORDERED: methylPREDNISolone Sod Succ 40 MG VIAL IVP SCH (14:00)
[2022-10-12] MEDS ORDERED: Insulin Regular 300 UNITS/3 ML VIAL SC PRN (14:01)
[2022-10-12] MEDS ORDERED: Dextrose 5% in Water 1,000 ML IV PRN (14:01)
[2022-10-12] MEDS ORDERED: Dextrose 50% Abboject 50 ML SYRINGE SLOW IVP PRN (14:01)
[2022-10-12] MEDS: predniSONE 20 MG TAB PO SCH (16:21)
[2022-10-12] MEDS: Insulin Regular 300 UNITS/3 ML VIAL SC PRN (18:10)
[2022-10-12] MEDS: Doxycycline 100 MG CAP PO SCH (20:49)
[2022-10-12] MEDS: Atorvastatin Calcium 40 MG TAB PO SCH (20:49)
[2022-10-12] MEDS: Enoxaparin Sodium 40 MG/0.4 ML SYRINGE SC SCH (20:49)
[2022-10-12] MEDS ORDERED: Sodium Chloride 0.65% Nasal 44 ML BOT EA NARE PRN (20:53)
[2022-10-13 05:10] LABS: Anion Gap 14 mmol/L (10-20); BUN (Urea Nitrogen) 35 mg/dL (9.8-20.1); Calc. Creatinine Clearance 69 mL/min (70-130); Calcium 9.1 mg/dL (7.8-10.44); Carbon Dioxide 25 mmol/L (23-31); Chloride 104 mmol/L (98-107); Estimated GFR 50; Glucose 125 mg/dL (80-115); Magnesium 2.2 mg/dL (1.6-2.6); Potassium 4.1 mmol/L (3.5-5.1); Sodium 139 mmol/L (136-145)
[2022-10-13] MEDS: Mometasone/Formoterol 200/5 60 PUFF INH SCH ×2 (07:16→18:43)
[2022-10-13] MEDS ORDERED: Communication Order-Pharmacy FS SCH (09:30)
[2022-10-13] MEDS: Sacubitril 49 MG/Valsartan 51 MG TABLET PO SCH ×2 (09:45→20:29)
[2022-10-13] MEDS: Ferrous Gluconate 324 MG TAB PO SCH (09:46)
[2022-10-13] MEDS: Doxycycline 100 MG CAP PO SCH ×2 (09:46→20:29)
[2022-10-13] MEDS: predniSONE 20 MG TAB PO SCH ×2 (09:47→18:02)
[2022-10-13] MEDS: Furosemide 40 MG TAB PO SCH (09:47)
[2022-10-13] MEDS: Aspirin 81 mg Enteric Coated Tablet PO SCH (09:47)
[2022-10-13] MEDS: hydrALAZINE 25 MG TAB PO SCH ×3 (09:48→20:29)
[2022-10-13] MEDS: Bupropion 150 MG XL TAB PO SCH ×2 (10:09→20:29)
[2022-10-13] MEDS: metFORMIN 500 MG TAB PO SCH (10:09)
[2022-10-13] MEDS: Insulin Regular 300 UNITS/3 ML VIAL SC PRN (18:02)
[2022-10-13] MEDS: Atorvastatin Calcium 40 MG TAB PO SCH (20:29)
[2022-10-13] MEDS: Enoxaparin Sodium 40 MG/0.4 ML SYRINGE SC SCH (20:29)
[2022-10-14 05:09] LABS: Anion Gap 16 mmol/L (10-20); BUN (Urea Nitrogen) 37 mg/dL (9.8-20.1); Calc. Creatinine Clearance 71 mL/min (70-130); Calcium 9.3 mg/dL (7.8-10.44); Carbon Dioxide 25 mmol/L (23-31); Chloride 100 mmol/L (98-107); Estimated GFR 53; Glucose 196 mg/dL (80-115); Magnesium 2.1 mg/dL (1.6-2.6); Potassium 4.1 mmol/L (3.5-5.1); Sodium 137 mmol/L (136-145)
[2022-10-14] MEDS: Mometasone/Formoterol 200/5 60 PUFF INH SCH ×2 (07:31→18:46)
[2022-10-14] MEDS ORDERED: Nitroglycerin 100MG/250ML BOT 0 ML ONE (07:49)
[2022-10-14] MEDS ORDERED: Lidocaine 1% (PF) 30 ML VIAL ONE ×2 (07:49→07:55)
[2022-10-14] MEDS ORDERED: Heparin 10,000 UNITS/ 10 ML VIAL ONE (07:49)
[2022-10-14] MEDS: Furosemide 40 MG TAB PO SCH (07:50)
[2022-10-14] MEDS: hydrALAZINE 25 MG TAB PO SCH ×3 (07:51→21:19)
[2022-10-14] MEDS ORDERED: FENTANYL 50 MCG/ML 1 ML VIAL ONE (07:56)
[2022-10-14] MEDS ORDERED: Midazolam HCl 2 mg/2 ml Vial ONE (07:56)
[2022-10-14] MEDS ORDERED: Adenosine 6 MG/2 ML VIAL ONE (09:53)
[2022-10-14] MEDS ORDERED: Nitroglycerin 0.4 MG TAB (25 Tab Bottle) SL PRN (10:18)
[2022-10-14] MEDS ORDERED: Sodium Chloride 0.9% 500 ML IV SCH (10:30)
[2022-10-14] MEDS ORDERED: Iopamidol 370 76% 50 ML VIAL FS ONE (11:23)
[2022-10-14] MEDS ORDERED: Iopamidol 370 76% 100 ML VIAL ONE (11:23)
[2022-10-14] MEDS: Doxycycline 100 MG CAP PO SCH ×2 (14:03→21:19)
[2022-10-14] MEDS: predniSONE 20 MG TAB PO SCH ×2 (14:03→17:45)
[2022-10-14] MEDS: Ferrous Gluconate 324 MG TAB PO SCH (14:03)
[2022-10-14] MEDS: Aspirin 81 mg Enteric Coated Tablet PO SCH (14:03)
[2022-10-14] MEDS: Empagliflozin 10 MG TAB PO SCH (14:03)
[2022-10-14] MEDS: Sacubitril 49 MG/Valsartan 51 MG TABLET PO SCH ×2 (14:03→21:19)
[2022-10-14] MEDS: Insulin Regular 300 UNITS/3 ML VIAL SC PRN (17:45)
[2022-10-14] MEDS: Bupropion 150 MG XL TAB PO SCH (21:19)
[2022-10-14] MEDS: Atorvastatin Calcium 40 MG TAB PO SCH (21:19)
[2022-10-15 04:39] LABS: #Lymphocytes 1.1 thou/uL (1.20-3.40); #Monocytes 0.5 thou/uL (0.11-0.59); #Neutrophils 7.3 thou/uL (1.40-6.50); %Basophils 0.1 % (0.0-1.0); %Eosinophils 0.1 % (0.0-10.0); %Lymphocytes 12.6 % (21.0-51.0); %Monocytes 5.1 % (0.0-10.0); %Neutrophils 82.2 % (42.0-75.0); Hemoglobin 9.9 g/dL (12.0-16.0); Mean Corpuscular HGB CONC 29.8 g/dL (32.0-36.0); Mean Corpuscular Hemoglobin 20.4 pg (27.0-31.0); Mean Corpuscular Volume 68.5 fl (78.0-98.0); Mean Platelet Volume 7.6 fL (7.4-10.4); Platelet Count 683 10x3/uL (130-400); RBC Distribution Width 16.6 % (11.5-14.5); Red Blood Cell (RBC) Count 4.84 mill/uL (4.20-5.40); White Blood Cell (WBC) Count 8.8 10x3/uL (4.8-10.8)
[2022-10-15 04:52] LABS: ALT (SGPT) 14 U/L (8-55); AST (SGOT) 18 U/L (5-34); Albumin 4.2 g/dL (3.4-4.8); Alkaline Phosphatase 58 U/L (40-110); Anion Gap 16 mmol/L (10-20); BUN (Urea Nitrogen) 36 mg/dL (9.8-20.1); Bilirubin, Total 0.4 mg/dL (0.2-1.2); Calc. Creatinine Clearance 67 mL/min (70-130); Calcium 9.5 mg/dL (7.8-10.44); Carbon Dioxide 26 mmol/L (23-31); Chloride 102 mmol/L (98-107); Estimated GFR 48; Globulin 2.8 g/dL (2.4-3.5); Glucose 146 mg/dL (80-115); Potassium 4.2 mmol/L (3.5-5.1); Sodium 140 mmol/L (136-145)
[2022-10-15] MEDS: Mometasone/Formoterol 200/5 60 PUFF INH SCH ×2 (07:11→18:38)
[2022-10-15] MEDS ORDERED: PROPOFOL 40 ML ONE (09:52)
[2022-10-15] MEDS ORDERED: PHENYLEPHRINE-NS 100 MCG/ML 10 ML SYRINGE ONE (10:20)
[2022-10-15] MEDS: Ferrous Gluconate 324 MG TAB PO SCH (11:47)
[2022-10-15] MEDS: Empagliflozin 10 MG TAB PO SCH (11:47)
[2022-10-15] MEDS: hydrALAZINE 25 MG TAB PO SCH ×3 (11:47→20:11)
[2022-10-15] MEDS: Doxycycline 100 MG CAP PO SCH ×2 (11:47→20:11)
[2022-10-15] MEDS: Sacubitril 49 MG/Valsartan 51 MG TABLET PO SCH ×2 (11:47→20:11)
[2022-10-15] MEDS: predniSONE 20 MG TAB PO SCH (11:48)
[2022-10-15] MEDS: Aspirin 81 mg Enteric Coated Tablet PO SCH (11:48)
[2022-10-15] MEDS: Furosemide 40 MG TAB PO SCH (12:35)
[2022-10-15] MEDS: Bupropion 150 MG XL TAB PO SCH ×2 (20:11→20:13)
[2022-10-15] MEDS: Atorvastatin Calcium 40 MG TAB PO SCH (20:11)
[2022-10-16] MEDS: Mometasone/Formoterol 200/5 60 PUFF INH SCH (07:17)
[2022-10-16] MEDS: Furosemide 40 MG TAB PO SCH (08:35)
[2022-10-16] MEDS: predniSONE 20 MG TAB PO SCH (08:36)
[2022-10-16] MEDS: Ferrous Gluconate 324 MG TAB PO SCH (08:36)
[2022-10-16] MEDS: Aspirin 81 mg Enteric Coated Tablet PO SCH (08:37)
[2022-10-16] MEDS: Doxycycline 100 MG CAP PO SCH (08:38)
[2022-10-16] MEDS: Empagliflozin 10 MG TAB PO SCH (08:39)
[2022-10-16] MEDS: hydrALAZINE 25 MG TAB PO SCH (08:39)
[2022-10-16] MEDS: Sacubitril 49 MG/Valsartan 51 MG TABLET PO SCH (08:40)
[2022-10-16 11:43] LABS: Anion Gap 15 mmol/L (10-20); BUN (Urea Nitrogen) 33 mg/dL (9.8-20.1); Calc. Creatinine Clearance 64 mL/min (70-130); Calcium 9.1 mg/dL (7.8-10.44); Carbon Dioxide 28 mmol/L (23-31); Chloride 102 mmol/L (98-107); Estimated GFR 49; Glucose 121 mg/dL (80-115); Potassium 3.8 mmol/L (3.5-5.1); Sodium 141 mmol/L (136-145)
[2022-10-16 12:09] VITALS: TEMP 98
[2022-10-16 12:34] VITALS: BP 121/77
== END 2022-10-16 12:50 | disposition home or self-care (01) | DRG 189 ==
LOC: ERS 11:19 → ERHOLD 14:36 → INTOOBSV 14:36 → 2NO 18:40 → OBSVTOIN 10-12 12:56
PROVIDERS: ADMIT Internal Medicine; ATTEND Internal Medicine
PROC: 4A023N7 Measurement of Cardiac Sampling and Pressure, Left Heart, Percutaneous Approach (ICD-10-PCS; 2022-10-14)
PROC: B2111ZZ Fluoroscopy of Multiple Coronary Arteries using Low Osmolar Contrast (ICD-10-PCS; 2022-10-14)
PROC: B2151ZZ Fluoroscopy of Left Heart using Low Osmolar Contrast (ICD-10-PCS; 2022-10-14)
PROC: 4A033BC Measurement of Arterial Pressure, Coronary, Percutaneous Approach (ICD-10-PCS; 2022-10-14)
PROC: B24BZZ4 Ultrasonography of Heart with Aorta, Transesophageal (ICD-10-PCS; principal; 2022-10-15)
DX: J96.01 Acute respiratory failure with hypoxia (principal); I21.A1 Myocardial infarction type 2; J44.1 Chronic obstructive pulmonary disease with (acute) exacerbation; I42.9 Cardiomyopathy, unspecified; I50.32 Chronic diastolic (congestive) heart failure; E11.9 Type 2 diabetes mellitus without complications; E66.01 Morbid (severe) obesity due to excess calories; D50.0 Iron deficiency anemia secondary to blood loss (chronic); I34.0 Nonrheumatic mitral (valve) insufficiency; I11.0 Hypertensive heart disease with heart failure; I25.10 Atherosclerotic heart disease of native coronary artery without angina pectoris; K31.819 Angiodysplasia of stomach and duodenum without bleeding; D75.839 Thrombocytosis, unspecified; Z20.822 Contact with and (suspected) exposure to COVID-19; Z86.16 Personal history of COVID-19; Z98.890 Other specified postprocedural states; Z88.6 Allergy status to analgesic agent; Z88.2 Allergy status to sulfonamides; Z91.011 Allergy to milk products; Z68.32 Body mass index [BMI] 32.0-32.9, adult; Z79.82 Long term (current) use of aspirin; Z98.51 Tubal ligation status; Z89.412 Acquired absence of left great toe; Z79.899 Other long term (current) drug therapy
CPT/HCPCS: 36415; 36416; 71045; 80048; 80053; 82553; 83605; 83735; 83880; 84484; 85025; 85347; 93005; 93010; 93306; 93312; 93458; 93571; 93798; 94640; 96372; 96374; 96375; 96376; 97139; 99152; 99153; C1769; C1887; C1894; G0378; J0153; J1644; J1650; J1815; J1956; J2001; J2250; J2704; J2920; J2930; J3010; J7512; J7620; Q9967

== ENCOUNTER 2023-01-04 14:11 | Outpatient (CLI) | payer MEDICARE | END 2023-01-04 14:12 | disposition home or self-care (01) | LOC: LABBT 14:11 | PROVIDERS: ATTEND Thoracic Surgery (Cardiothoracic Vascular Surgery) | DX: Z01.812 Encounter for preprocedural laboratory examination (principal); I25.10 Atherosclerotic heart disease of native coronary artery without angina pectoris; I50.9 Heart failure, unspecified | CPT/HCPCS: 80048; 85027; 86850; 86900; 86901; 93005; 93010 ==

== ENCOUNTER 2023-01-04 14:15 | Inpatient (IN) | payer MEDICARE ==
[2023-01-04 15:18] LABS: Hemoglobin 9.2 g/dL (12.0-15.5); Mean Corpuscular HGB CONC 28.1 g/dL (32.0-36.0); Mean Corpuscular Hemoglobin 19.5 pg (27.0-33.0); Mean Corpuscular Volume 69.3 fl (81.6-98.3); Mean Platelet Volume 9.1 fl (7.4-10.4); Platelet Count 507 10x3/uL (150-450); RBC Distribution Width 18.2 % (11.5-14.5); Red Blood Cell (RBC) Count 4.72 10x6/uL (3.90-5.03); White Blood Cell (WBC) Count 11.8 10x3/uL (3.5-10.5)
[2023-01-04 15:56] LABS: Anion Gap 18 mmol/L (10-20); BUN (Urea Nitrogen) 22 mg/dL (9.8-20.1); Calc. Creatinine Clearance 0 mL/min (70-130); Calcium 9.2 mg/dL (7.8-10.44); Carbon Dioxide 25 mmol/L (23-31); Chloride 104 mmol/L (98-107); Estimated GFR 61; Glucose 237 mg/dL (80-115); Potassium 4.1 mmol/L (3.5-5.1); Sodium 143 mmol/L (136-145)
[2023-02-01 12:13] LABS: Hemoglobin 9.9 g/dL (12.0-15.5); Mean Corpuscular HGB CONC 27.7 g/dL (32.0-36.0); Mean Corpuscular Hemoglobin 18.9 pg (27.0-33.0); Mean Corpuscular Volume 68.1 fl (81.6-98.3); Platelet Count 535 10x3/uL (150-450); RBC Distribution Width 18.6 % (11.5-14.5); Red Blood Cell (RBC) Count 5.24 10x6/uL (3.90-5.03); White Blood Cell (WBC) Count 10.3 10x3/uL (3.5-10.5)
[2023-02-01 12:47] LABS: Anion Gap 18 mmol/L (10-20); BUN (Urea Nitrogen) 28 mg/dL (9.8-20.1); Calc. Creatinine Clearance 0 mL/min (70-130); Calcium 9.2 mg/dL (7.8-10.44); Carbon Dioxide 27 mmol/L (23-31); Chloride 101 mmol/L (98-107); Estimated GFR 56; Glucose 168 mg/dL (80-115); Potassium 4.3 mmol/L (3.5-5.1); Sodium 142 mmol/L (136-145)
[2023-02-02] MEDS ORDERED: Fentanyl 250 MCG/5 ML VIAL ONE (06:34)
[2023-02-02] MEDS ORDERED: Midazolam HCl 5 mg/5 ml Vial ONE (06:34)
[2023-02-02] MEDS ORDERED: Bupivacaine HCl 0.5%/Epinephrine 1:200,000/PF 30 ml Vial ONE (06:40)
[2023-02-02] MEDS ORDERED: Albumin 5% 500 ML ONE (06:40)
[2023-02-02] MEDS ORDERED: PHENYLEPHRINE-NS 100 MCG/ML 10 ML SYRINGE ONE (06:40)
[2023-02-02] MEDS ORDERED: Dexamethasone 4 mg/ml Vial ONE (06:40)
[2023-02-02] MEDS ORDERED: Heparin 10,000 UNITS/1 ML VIAL 30,000 UNITS in Sodium Chloride 0.9% 1,000 ML FS SCH (07:00)
[2023-02-02] MEDS ORDERED: Lidocaine 1% MPF 2 ML VIAL ONE (07:01)
[2023-02-02] MEDS ORDERED: Sodium Chloride 0.9% 100 ML ONE (07:20)
[2023-02-02] MEDS ORDERED: CEFAZOLIN 2 GM VIAL ONE (07:20)
[2023-02-02] MEDS ORDERED: PROPOFOL 200 MG/20 ML VIAL ONE (07:35)
[2023-02-02] MEDS ORDERED: Protamine Sulfate 50 MG/5 ML VIAL ONE (07:35)
[2023-02-02] MEDS ORDERED: Albumin 25% 25 GM/100 ML BOT ONE (07:35)
[2023-02-02] MEDS ORDERED: Lidocaine 2% PF 100 mg/5 ml Syringe ONE (07:35)
[2023-02-02] MEDS ORDERED: Labetalol HCl 100 MG/20 ML VIAL ONE (07:35)
[2023-02-02] MEDS ORDERED: Vecuronium 10 MG VIAL ONE (07:35)
[2023-02-02] MEDS ORDERED: Heparin 5,000 UNITS/ML VIAL ONE (07:35)
[2023-02-02] MEDS ORDERED: Vancomycin 1 GM VIAL ONE (07:35)
[2023-02-02] MEDS ORDERED: Cardioplegic Soln 1,000 ML BAG ONE (07:35)
[2023-02-02] MEDS ORDERED: Aminocaproic Acid 5 GM/20 ML VIAL ONE (07:35)
[2023-02-02] MEDS ORDERED: Mannitol 12.5 GM/50 ML ONE (07:35)
[2023-02-02] MEDS ORDERED: Sodium Bicarb 50 MEQ/50 ML VIAL ONE (07:35)
[2023-02-02] MEDS ORDERED: Ondansetron PF 4 MG/2 ML Vial ONE (07:35)
[2023-02-02] MEDS ORDERED: Magnesium 5 GM/10 ML VIAL ONE (07:35)
[2023-02-02] MEDS ORDERED: Heparin 30,000 units/30 ml VIAL ONE (07:35)
[2023-02-02] MEDS ORDERED: Potassium Chloride 60 MEQ/30 ML VIAL ONE (07:35)
[2023-02-02] MEDS ORDERED: Papaverine 60 MG/2 ML VIAL ONE (07:35)
[2023-02-02] MEDS ORDERED: Thrombin 5000 UNITS/5 ML VIAL ONE (07:35)
[2023-02-02] MEDS ORDERED: Calcium Chloride 1 GM/10 ML Abboject SYRINGE ONE (07:35)
[2023-02-02] MEDS ORDERED: Isoflurane INH ANEST 100 ML BOTTLE ONE (08:13)
[2023-02-02] MEDS ORDERED: Insulin Regular 300 UNITS/3 ML VIAL ONE (08:20)
[2023-02-02] MEDS ORDERED: Post-Op Insulin Drip Protocol IVPB ONE (11:36)
[2023-02-02] MEDS ORDERED: NOREPINEPHRINE 8 MG/250 ML-D5W 250 ML IVPB PRN (11:36)
[2023-02-02] MEDS ORDERED: hydrALAZINE 20 MG/ML VIAL SLOW IVP PRN (11:36)
[2023-02-02] MEDS ORDERED: traMADol HCl 50 MG TAB PO PRN ×2 (11:36)
[2023-02-02] MEDS ORDERED: Bisacodyl 5 MG TAB PO PRN (11:36)
[2023-02-02] MEDS ORDERED: Morphine 2 MG/ML VIAL SLOW IVP PRN (11:36)
[2023-02-02] MEDS ORDERED: Potassium Chloride 20 MEQ/100 ML PREMIX BAG IVPB PRN (11:36)
[2023-02-02] MEDS ORDERED: Ondansetron PF 4 MG/2 ML Vial IVP PRN (11:36)
[2023-02-02] MEDS ORDERED: D5 1/2 NS w/20 mEq KCL 1,000 ML IV SCH (11:36)
[2023-02-02] MEDS ORDERED: Ipratropium/Albuterol 3 ML NEB NEB PRN (11:36)
[2023-02-02] MEDS ORDERED: Promethazine HCl 25 MG/ML VIAL IM PRN (11:36)
[2023-02-02] MEDS ORDERED: Guaifenesin DM 100-10/5 ML UDCUP PO PRN (11:36)
[2023-02-02] MEDS ORDERED: Magnesium 2 GM/50 ML(in water) 2 GM in Premix Bag 1 BAG IVPB SCH (11:36)
[2023-02-02] MEDS ORDERED: Mag-Al 1200 mg/1200 mg/30 ML UDCUP PO PRN (11:36)
[2023-02-02] MEDS ORDERED: Hetastarch 6% 500 ML 500 ML IVPB PRN (11:36)
[2023-02-02] MEDS ORDERED: Nitroglycerin 50 MG/250 ML BOT 250 ML IVPB PRN (11:36)
[2023-02-02] MEDS ORDERED: fentaNYL 50 mcg/mL 1 mL Vial SLOW IVP PRN ×2 (11:36)
[2023-02-02] MEDS ORDERED: Bisacodyl 10 MG SUPP PR PRN (11:36)
[2023-02-02] MEDS ORDERED: Albumin 5% 250 ML ONE (11:38)
[2023-02-02] MEDS ORDERED: Dextrose 50% Abboject 50 ML SYRINGE SLOW IVP PRN (11:45)
[2023-02-02] MEDS ORDERED: Dextrose 5% in Water 1,000 ML IV PRN (11:45)
[2023-02-02] MEDS ORDERED: HUMULIN R 100 UNITS in Sodium Chloride 0.9% 100 ML IVPB SCH (11:45)
[2023-02-02] MEDS ORDERED: Insulin Regular 300 UNITS/3 ML VIAL SC PRN (11:45)
[2023-02-02 11:55] VITALS: BMI 32.3
[2023-02-02] MEDS: Atorvastatin Calcium 40 MG TAB PO SCH (12:18)
[2023-02-02 12:24] LABS: Hemoglobin 10.6 g/dL (12.0-16.0); Mean Corpuscular HGB CONC 31.6 g/dL (32.0-36.0); Mean Corpuscular Hemoglobin 23.2 pg (27.0-31.0); Mean Corpuscular Volume 73.4 fl (78.0-98.0); Mean Platelet Volume 8.7 fL (7.4-10.4); Platelet Count 372 10x3/uL (130-400); RBC Distribution Width 21.7 % (11.5-14.5); Red Blood Cell (RBC) Count 4.58 mill/uL (4.20-5.40); White Blood Cell (WBC) Count 23.7 10x3/uL (4.8-10.8)
[2023-02-02 12:27] LABS: Anion Gap 15 mmol/L (10-20); BUN (Urea Nitrogen) 25 mg/dL (9.8-20.1); Calc. Creatinine Clearance 76 mL/min (70-130); Calcium 7.5 mg/dL (7.8-10.44); Carbon Dioxide 21 mmol/L (23-31); Chloride 109 mmol/L (98-107); Estimated GFR 59; Glucose 172 mg/dL (80-115); Potassium 4.6 mmol/L (3.5-5.1); Sodium 140 mmol/L (136-145)
[2023-02-02] MEDS: Ketorolac Tromethamine 30 MG/ML VIAL IVP SCH ×3 (12:29→23:42)
[2023-02-02 12:44] LABS: INR-International Normal Ratio 1.3; Prothrombin Time 17.2 sec (12.0-14.7)
[2023-02-02] MEDS: Ipratropium/Albuterol 3 ML NEB NEB SCH ×2 (13:11→18:53)
[2023-02-02 13:22] LABS: ALV-art Gradient 264.375 mmHg (0-20); Actual Bicarbonate (HCO3a) 21.9 mEq/L (22-28); Base Excess (BEa) -4.6 mEq/L (-2.0 to +3.0); CO2 Tension 46.5 mmHg (35.0-45.0); Calcium, Ionized (arterial) 1.08 mmol/L (1.12-1.30); Carboxyhemoglobin (COHb) 0.5 gm% (0.0-3.0); O2 Tension (PaO2), arterial 105.3 mmHg (> 80.0); Potassium - ABG Lab 4.51 mmol/L (3.70-5.30); Puncture Site Arterial Line; pH, Arterial 7.29 (7.35-7.45)
[2023-02-02 13:29] LABS: Anisocytosis SLIGHT = 6-15 cells (100X) (0-5/hpf); Band 3 % (5-11); Hypochromia SLIGHT = 6-15 cells (100X) (0-5/hpf); Lymphocytes 10 % (21-51); MDiff Complete? YES; Microcytosis SLIGHT = 6-15 cells (100X) (0-5/hpf); Monocytes 8 % (0-10); Neutrophil 79 % (42-75); Ovalocytes SLIGHT = 2-5 cells (100X) (0-1/hpf); Platelet Morphology Comment Appears Adequate; Polychromasia SLIGHT = 2-3 cells (100X) (0-2/hpf)
[2023-02-02 14:51] LABS: Actual Bicarbonate (HCO3a) 22.7 mEq/L (22-28); Base Excess (BEa) -3.1 mEq/L (-2.0 to +3.0); CO2 Tension 43.7 mmHg (35.0-45.0); Calcium, Ionized (arterial) 1.11 mmol/L (1.12-1.30); Carboxyhemoglobin (COHb) 0.4 gm% (0.0-3.0); Hemoglobin (Hb) 10.8 g/dL (12.0-16.0); O2 Tension (PaO2), arterial 106.4 mmHg (> 80.0); Potassium - ABG Lab 4.37 mmol/L (3.70-5.30); pH, Arterial 7.33 (7.35-7.45)
[2023-02-02 14:58] LABS: Puncture Site Arterial Line
[2023-02-02 14:59] LABS: ALV-art Gradient 124.175 mmHg (0-20)
[2023-02-02] MEDS: CEFAZOLIN 2 GM in Sodium Chloride 0.9% 100 ML IVPB SCH ×2 (15:37→23:37)
[2023-02-02 17:19] LABS: Hemoglobin 10.3 g/dL (12.0-16.0)
[2023-02-02] MEDS ORDERED: Famotidine/PF 20 mg/2ml Vial SLOW IVP SCH (21:00)
[2023-02-03] MEDS: Ipratropium/Albuterol 3 ML NEB NEB SCH ×3 (01:00→14:53)
[2023-02-03 03:31] LABS: #Lymphocytes 1.2 thou/uL (1.20-3.40); #Monocytes 0.6 thou/uL (0.11-0.59); #Neutrophils 10.6 thou/uL (1.40-6.50); %Basophils 0.1 % (0.0-1.0); %Eosinophils 0.2 % (0.0-10.0); %Lymphocytes 9.5 % (21.0-51.0); %Monocytes 5.2 % (0.0-10.0); %Neutrophils 85.1 % (42.0-75.0); Hemoglobin 10.2 g/dL (12.0-16.0); Mean Corpuscular HGB CONC 31.5 g/dL (32.0-36.0); Mean Corpuscular Hemoglobin 23.7 pg (27.0-31.0); Mean Corpuscular Volume 75.2 fl (78.0-98.0); Mean Platelet Volume 8.2 fL (7.4-10.4); Platelet Count 353 10x3/uL (130-400); Red Blood Cell (RBC) Count 4.29 mill/uL (4.20-5.40); White Blood Cell (WBC) Count 12.4 10x3/uL (4.8-10.8)
[2023-02-03 03:52] LABS: Anion Gap 12 mmol/L (10-20); BUN (Urea Nitrogen) 22 mg/dL (9.8-20.1); Calc. Creatinine Clearance 76 mL/min (70-130); Calcium 8.1 mg/dL (7.8-10.44); Carbon Dioxide 24 mmol/L (23-31); Chloride 108 mmol/L (98-107); Estimated GFR 59; Glucose 124 mg/dL (80-115); Potassium 4.1 mmol/L (3.5-5.1); Sodium 140 mmol/L (136-145)
[2023-02-03] MEDS: Ketorolac Tromethamine 30 MG/ML VIAL IVP SCH ×4 (05:16→23:02)
[2023-02-03] MEDS: CEFAZOLIN 2 GM in Sodium Chloride 0.9% 100 ML IVPB SCH (06:23)
[2023-02-03] MEDS ORDERED: guaiFENesin ER 600 MG TAB PO PRN (06:51)
[2023-02-03] MEDS ORDERED: Dextrose 5% in Water 1,000 ML IV PRN (06:55)
[2023-02-03] MEDS ORDERED: Dextrose 50% Abboject 50 ML SYRINGE SLOW IVP PRN (06:55)
[2023-02-03] MEDS ORDERED: HumaLOG 300 UNITS/3 ML VIAL SC PRN (06:55)
[2023-02-03] MEDS: Furosemide 40 MG TAB PO SCH (08:43)
[2023-02-03] MEDS: Ferrous Gluconate 324 MG TAB PO SCH (08:43)
[2023-02-03] MEDS: Magnesium 2 GM/50 ML(in water) 2 GM in Premix Bag 1 BAG IVPB SCH (08:43)
[2023-02-03] MEDS: Aspirin 325 MG TAB PO SCH (08:43)
[2023-02-03] MEDS: Potassium Chloride 10 MEQ TAB PO SCH (08:43)
[2023-02-03] MEDS: Bupropion 150 MG XL TAB PO SCH (08:43)
[2023-02-03] MEDS: Atorvastatin Calcium 40 MG TAB PO SCH (11:05)
[2023-02-03] MEDS ORDERED: Insulin Glargine 30 UNITS/0.3 ML VIAL SC PRN (11:40)
[2023-02-03 11:45] LABS: Actual Bicarbonate (HCO3a) 24.2 mEq/L (22-28); Analyzer IN Cardio OR; Base Excess (BEa) -0.7 mEq/L (-2.0 to +3.0); Calcium, Ionized (arterial) 1.09 mmol/L (1.12-1.30); Hemoglobin (Hb) 9.2 g/dL (12.0-16.0); Potassium - ABG Lab 4.02 mmol/L (3.70-5.30); pH, Arterial 7.39 (7.35-7.45)
[2023-02-03 11:46] LABS: Actual Bicarbonate (HCO3a) 24.8 mEq/L (22-28); Analyzer IN Cardio OR; Base Excess (BEa) -0.9 mEq/L (-2.0 to +3.0); CO2 Tension 46.3 mmHg (35.0-45.0); Calcium, Ionized (arterial) 1.08 mmol/L (1.12-1.30); Carboxyhemoglobin (COHb) 0.7 gm% (0.0-3.0); Hemoglobin (Hb) 8.8 g/dL (12.0-16.0); Potassium - ABG Lab 3.23 mmol/L (3.70-5.30); pH, Arterial 7.35 (7.35-7.45)
[2023-02-03 11:46] LABS: Actual Bicarbonate (HCO3a) 24.6 mEq/L (22-28); Analyzer IN Cardio OR; Base Excess (BEa) -2.3 mEq/L (-2.0 to +3.0); CO2 Tension 54.1 mmHg (35.0-45.0); Carboxyhemoglobin (COHb) 0.8 gm% (0.0-3.0); Hemoglobin (Hb) 7.7 g/dL (12.0-16.0); Potassium - ABG Lab 4.75 mmol/L (3.70-5.30); pH, Arterial 7.28 (7.35-7.45)
[2023-02-03 11:47] LABS: Actual Bicarbonate (HCO3v) 25 mEq/L (22-28); Analyzer IN Cardio OR; Base Excess -1.2 mEq/L (-2.0 to +3.0); Calcium, Ionized (venous) 1.02 mmol/L (1.16-1.32); Chloride (VBG) 105 mmol/L (98-106); Hemoglobin (Hb) 8.2 g/dL (11.7-16.1); Potassium (VBG) 5.01 mmol/L (3.70-5.30); Sodium 136.3 mmol/L (133-146)
[2023-02-03 11:47] LABS: Actual Bicarbonate (HCO3a) 22.3 mEq/L (22-28); Analyzer IN Cardio OR; Base Excess (BEa) -3.6 mEq/L (-2.0 to +3.0); CO2 Tension 44.2 mmHg (35.0-45.0); Calcium, Ionized (arterial) 1.06 mmol/L (1.12-1.30); Carboxyhemoglobin (COHb) 0.4 gm% (0.0-3.0); Hemoglobin (Hb) 10.4 g/dL (12.0-16.0); O2 Tension (PaO2), arterial 197.5 mmHg (> 80.0); Potassium - ABG Lab 4.32 mmol/L (3.70-5.30); pH, Arterial 7.32 (7.35-7.45)
[2023-02-03 11:47] LABS: Puncture Site Arterial Line
[2023-02-03 11:47] LABS: Puncture Site Arterial Line
[2023-02-03 11:48] LABS: Puncture Site Arterial Line
[2023-02-03 11:48] LABS: Puncture Site Arterial Line
[2023-02-03] MEDS ORDERED: diphenhydrAMINE 25 MG CAP PO PRN (17:39)
[2023-02-03] MEDS ORDERED: Zolpidem Tartrate 5 MG TAB PO PRN (17:39)
[2023-02-03] MEDS ORDERED: Mineral Oil ENEMA PR PRN (17:39)
[2023-02-03] MEDS ORDERED: Nitroglycerin 0.4 MG TAB (25 Tab Bottle) SL PRN (17:39)
[2023-02-03] MEDS ORDERED: Milk Of Magnesia 30 ML UDCUP PO PRN (17:39)
[2023-02-03] MEDS: Mometasone 100 MCG/Formoterol 5 MCG 120 PUFF INHALER INH SCH (18:43)
[2023-02-03] MEDS: Empagliflozin 10 MG TAB PO SCH (20:52)
[2023-02-03] MEDS: Sacubitril 49 MG/Valsartan 51 MG TABLET PO SCH (20:52)
[2023-02-04] MEDS: Acetaminophen 325 MG TAB PO PRN (01:41)
[2023-02-04] MEDS: Ketorolac Tromethamine 30 MG/ML VIAL IVP SCH ×3 (05:44→17:32)
[2023-02-04] MEDS: Mometasone 100 MCG/Formoterol 5 MCG 120 PUFF INHALER INH SCH ×2 (07:16→18:15)
[2023-02-04] MEDS: Ferrous Gluconate 324 MG TAB PO SCH (08:23)
[2023-02-04] MEDS: Bupropion 150 MG XL TAB PO SCH (08:24)
[2023-02-04] MEDS: Potassium Chloride 10 MEQ TAB PO SCH (08:24)
[2023-02-04] MEDS: Sacubitril 49 MG/Valsartan 51 MG TABLET PO SCH ×2 (08:24→21:23)
[2023-02-04] MEDS: CO Q-10 CAPSULE 100 MG PO SCH (08:24)
[2023-02-04] MEDS: Aspirin 325 MG TAB PO SCH (08:24)
[2023-02-04] MEDS: Furosemide 40 MG TAB PO SCH (08:24)
[2023-02-04] MEDS: Magnesium 2 GM/50 ML(in water) 2 GM in Premix Bag 1 BAG IVPB SCH (08:25)
[2023-02-04] MEDS: Atorvastatin Calcium 40 MG TAB PO SCH (12:22)
[2023-02-04] MEDS: Empagliflozin 10 MG TAB PO SCH (21:23)
[2023-02-05] MEDS: Ketorolac Tromethamine 30 MG/ML VIAL IVP SCH ×3 (00:43→10:24)
[2023-02-05] MEDS: Mometasone 100 MCG/Formoterol 5 MCG 120 PUFF INHALER INH SCH ×2 (07:31→19:25)
[2023-02-05] MEDS: Ferrous Gluconate 324 MG TAB PO SCH (10:21)
[2023-02-05] MEDS: Atorvastatin Calcium 40 MG TAB PO SCH (10:21)
[2023-02-05] MEDS: CO Q-10 CAPSULE 100 MG PO SCH (10:22)
[2023-02-05] MEDS: Sacubitril 49 MG/Valsartan 51 MG TABLET PO SCH ×2 (10:22→21:24)
[2023-02-05] MEDS: Bupropion 150 MG XL TAB PO SCH (10:22)
[2023-02-05] MEDS: Potassium Chloride 10 MEQ TAB PO SCH (10:22)
[2023-02-05] MEDS: Aspirin 325 MG TAB PO SCH (10:22)
[2023-02-05] MEDS: Furosemide 40 MG TAB PO SCH (10:23)
[2023-02-05] MEDS: Acetaminophen 325 MG TAB PO PRN (16:40)
[2023-02-05] MEDS: Empagliflozin 10 MG TAB PO SCH (21:26)
[2023-02-06] MEDS: Acetaminophen 325 MG TAB PO PRN (02:42)
[2023-02-06] MEDS: Mometasone 100 MCG/Formoterol 5 MCG 120 PUFF INHALER INH SCH (08:02)
[2023-02-06 09:39] VITALS: BP 156/66
[2023-02-06] MEDS: Aspirin 325 MG TAB PO SCH (09:44)
[2023-02-06] MEDS: Sacubitril 49 MG/Valsartan 51 MG TABLET PO SCH (09:44)
[2023-02-06] MEDS: CO Q-10 CAPSULE 100 MG PO SCH (09:44)
[2023-02-06] MEDS: Ferrous Gluconate 324 MG TAB PO SCH (09:44)
[2023-02-06] MEDS: Furosemide 40 MG TAB PO SCH (09:45)
[2023-02-06] MEDS: Bupropion 150 MG XL TAB PO SCH (09:45)
[2023-02-06] MEDS: Potassium Chloride 10 MEQ TAB PO SCH (09:45)
[2023-02-06 10:26] VITALS: TEMP 98
== END 2023-02-06 11:56 | disposition home or self-care (01) | DRG 236 ==
LOC: SURG A 02-02 06:25 → CCU 02-02 11:25 → 2NO 02-04 16:15
PROVIDERS: ADMIT Thoracic Surgery (Cardiothoracic Vascular Surgery); ATTEND Thoracic Surgery (Cardiothoracic Vascular Surgery)
PROC: 021109W Bypass Coronary Artery, Two Arteries from Aorta with Autologous Venous Tissue, Open Approach (ICD-10-PCS; principal; 2023-02-02)
PROC: 06BQ4ZZ Excision of Left Saphenous Vein, Percutaneous Endoscopic Approach (ICD-10-PCS; 2023-02-02)
PROC: 5A1221Z Performance of Cardiac Output, Continuous (ICD-10-PCS; 2023-02-02)
PROC: 30233N1 Transfusion of Nonautologous Red Blood Cells into Peripheral Vein, Percutaneous Approach (ICD-10-PCS; 2023-02-02)
DX: I25.10 Atherosclerotic heart disease of native coronary artery without angina pectoris (principal); E78.5 Hyperlipidemia, unspecified; E11.9 Type 2 diabetes mellitus without complications; J44.9 Chronic obstructive pulmonary disease, unspecified; I11.0 Hypertensive heart disease with heart failure; I50.9 Heart failure, unspecified; Z78.1 Physical restraint status; Z79.899 Other long term (current) drug therapy; Z79.82 Long term (current) use of aspirin; Z79.84 Long term (current) use of oral hypoglycemic drugs; Z90.49 Acquired absence of other specified parts of digestive tract; Z89.422 Acquired absence of other left toe(s); Z87.891 Personal history of nicotine dependence; Z88.5 Allergy status to narcotic agent; Z88.8 Allergy status to other drugs, medicaments and biological substances
CPT/HCPCS: 36416; 36430; 71045; 80048; 82805; 85025; 85027; 85610; 85730; 86850; 86900; 86901; 93005; 93010; 93798; 94002; 94150; 94640; 94664; C1751; C1776; J1100; J1642; J1644; J1815; J1885; J2001; J2150; J2250; J2405; J2440; J2704; J2720; J3010; J3370; J3475; J3480; J3490; J7620; P9016; P9045; P9047; S0017; S0028

== ENCOUNTER 2023-01-26 08:35 | Inpatient (IN) | payer MEDICARE, OTHER ==
[2023-01-26] MEDS ORDERED: Nitroglycerin 2% Ointment 1 INCH/1 GM Packet ONE (08:50)
[2023-01-26] MEDS ORDERED: Cefepime 2 GM VIAL ONE (08:50)
[2023-01-26] MEDS ORDERED: Ipratropium/Albuterol 3 ML NEB ONE ×2 (08:54→09:07)
[2023-01-26] MEDS ORDERED: cefTRIAXone (ROCEPHIN) 2 GM VIAL ONE (08:56)
[2023-01-26] MEDS ORDERED: Fentanyl CADD 100 ML IV SCH ×3 (09:00→11:30)
[2023-01-26] MEDS ORDERED: fentaNYL 50 mcg/mL 1 mL Vial ONE (09:01)
[2023-01-26] MEDS ORDERED: Furosemide 40 MG/4 ML VIAL ONE (09:17)
[2023-01-26 09:21] LABS: Actual Bicarbonate (HCO3a) 26.6 mEq/L (22-28); Analyzer IN Cardio ER; Base Excess (BEa) -1.4 mEq/L (-2.0 to +3.0); CO2 Tension 61.9 mmHg (35.0-45.0); Calcium, Ionized (arterial) 1.19 mmol/L (1.12-1.30); Carboxyhemoglobin (COHb) 0.3 gm% (0.0-3.0); Hemoglobin (Hb) 11.1 g/dL (12.0-16.0); O2 Tension (PaO2), arterial 74.4 mmHg (> 80.0); Potassium - ABG Lab 3.92 mmol/L (3.70-5.30); pH, Arterial 7.25 (7.35-7.45)
[2023-01-26 09:22] LABS: ALV-art Gradient 276.025 mmHg (0-20); Puncture Site RRA
[2023-01-26] MEDS ORDERED: Nitroglycerin 50 MG/250 ML BOT 250 ML ONE (09:23)
[2023-01-26 09:24] LABS: #Eosinphils 0.2 thou/uL (0.0-0.7); #Lymphocytes 0.3 thou/uL (1.20-3.40); #Monocytes 0.1 thou/uL (0.11-0.59); #Neutrophils 3.4 thou/uL (1.40-6.50); %Lymphocytes 7.8 % (21.0-51.0); %Monocytes 3.3 % (0.0-10.0); %Neutrophils 84.9 % (42.0-75.0); Mean Corpuscular HGB CONC 28.1 g/dL (32.0-36.0); Mean Corpuscular Hemoglobin 19.4 pg (27.0-31.0); Mean Corpuscular Volume 69.1 fl (78.0-98.0); Mean Platelet Volume 7.9 fL (7.4-10.4); Platelet Count 563 10x3/uL (130-400); RBC Distribution Width 16.8 % (11.5-14.5); Red Blood Cell (RBC) Count 5.13 mill/uL (4.20-5.40)
[2023-01-26] MEDS ORDERED: Azithromycin 500 MG VIAL ONE (09:32)
[2023-01-26 09:34] LABS: ALT (SGPT) 18 U/L (8-55); AST (SGOT) 24 U/L (5-34); Albumin 3.9 g/dL (3.4-4.8); Alkaline Phosphatase 85 U/L (40-110); Anion Gap 17 mmol/L (10-20); BUN (Urea Nitrogen) 15 mg/dL (9.8-20.1); Bilirubin, Total 0.3 mg/dL (0.2-1.2); Calc. Creatinine Clearance 0 mL/min (70-130); Calcium 8.8 mg/dL (7.8-10.44); Carbon Dioxide 20 mmol/L (23-31); Chloride 107 mmol/L (98-107); Estimated GFR 71; Globulin 3.1 g/dL (2.4-3.5); Glucose 261 mg/dL (80-115); Potassium 3.9 mmol/L (3.5-5.1); Sodium 140 mmol/L (136-145)
[2023-01-26 09:41] LABS: Hypochromia SLIGHT = 6-15 cells (100X) (0-5/hpf); MDiff Complete? YES; Microcytosis MODERATE=15-30 cells (100X) (0-5/hpf); Ovalocytes SLIGHT = 2-5 cells (100X) (0-1/hpf); Platelet Morphology Comment Appears Increased; Polychromasia SLIGHT = 2-3 cells (100X) (0-2/hpf)
[2023-01-26 09:41] LABS: Bilirubin Negative (Negative); Blood, Urine Negative (Negative); Clarity Clear (Clear); Glucose, Urine (Dipstick) Greater than 1000 mg/dL (Negative); Ketone, Urine Negative (Negative); Leukocyte Negative Leu/uL (Negative); Nitrite Negative (Negative); Protein, Urine (Dipstick) Negative (Neg-Trace); Specific Gravity, Urine 1.021 (1.002-1.036); Urobilinogen Normal mg/dL (Less than 2)
[2023-01-26 09:54] LABS: CKMB 5.2 ng/mL (0-6.6)
[2023-01-26 10:41] LABS: SARS-CoV-2 NAA Rapid Test Not Detected (NotDetected)
[2023-01-26 10:56] VITALS: BMI 32.4
[2023-01-26] MEDS ORDERED: Insulin Regular 300 UNITS/3 ML VIAL SC PRN (11:11)
[2023-01-26] MEDS ORDERED: Dextrose 5% in Water 1,000 ML IV PRN (11:11)
[2023-01-26] MEDS ORDERED: Electrolyte Replacement Protocol 1 EACH IVPB ONE (11:11)
[2023-01-26] MEDS ORDERED: Acetaminophen 650 MG Suppository PR PRN (11:11)
[2023-01-26] MEDS ORDERED: Dextrose 50% Abboject 50 ML SYRINGE SLOW IVP PRN (11:11)
[2023-01-26] MEDS ORDERED: Acetaminophen 325 MG TAB PO PRN (11:15)
[2023-01-26] MEDS ORDERED: Ondansetron ODT 4 MG TAB SL PRN (11:15)
[2023-01-26] MEDS ORDERED: Ondansetron PF 4 MG/2 ML Vial IVP PRN (11:15)
[2023-01-26] MEDS ORDERED: Ventilator Sedation Protocol 1 EACH FS SCH (11:15)
[2023-01-26] MEDS ORDERED: Metoclopramide HCl 10 MG/2 ML VIAL IVP PRN (11:16)
[2023-01-26] MEDS ORDERED: Fentanyl BOLUS 250 ML IVPB PRN ×2 (11:30)
[2023-01-26] MEDS ORDERED: DISCONTINUE PREVIOUS NARCOTIC PAIN MEDICATIONS AND BENZODIAZEPINES FS SCH (11:30)
[2023-01-26] MEDS ORDERED: Propofol 1,000 MG/100 ML VIAL IV PRN ×2 (11:30)
[2023-01-26] MEDS ORDERED: Propofol BOLUS 1,000 MG/100 ML VIAL IV PRN ×2 (11:30)
[2023-01-26] MEDS ORDERED: Lorazepam 2 MG/ML VIAL SLOW IVP PRN ×2 (11:30)
[2023-01-26] MEDS ORDERED: Electrolyte Replacement Protocol FS PRN (11:45)
[2023-01-26] MEDS ORDERED: Iopamidol-370 76% 500 ML MDV (1 ML CHARGE) ONE (12:35)
[2023-01-26] MEDS: Furosemide 40 MG/4 ML VIAL SLOW IVP SCH (12:58)
[2023-01-26] MEDS: methylPREDNISolone Sod Succ 40 MG VIAL IVP SCH ×2 (17:13→23:24)
[2023-01-26] MEDS: Insulin Regular 300 UNITS/3 ML VIAL SC PRN (18:03)
[2023-01-26] MEDS: Famotidine/PF 20 mg/2ml Vial SLOW IVP SCH (20:01)
[2023-01-26] MEDS: Atorvastatin Calcium 40 MG TAB PO SCH (20:01)
[2023-01-26] MEDS: Sacubitril 49 MG/Valsartan 51 MG TABLET PO SCH (20:01)
[2023-01-27] MEDS: Acetaminophen 325 MG TAB PO PRN ×2 (01:17→06:13)
[2023-01-27 03:59] LABS: #Lymphocytes 0.7 thou/uL (1.20-3.40); #Monocytes 0.1 thou/uL (0.11-0.59); #Neutrophils 7.1 thou/uL (1.40-6.50); %Basophils 0.2 % (0.0-1.0); %Lymphocytes 8.7 % (21.0-51.0); %Monocytes 1.8 % (0.0-10.0); %Neutrophils 89.3 % (42.0-75.0); Hemoglobin 10.1 g/dL (12.0-16.0); Mean Corpuscular HGB CONC 30.4 g/dL (32.0-36.0); Mean Corpuscular Hemoglobin 20.4 pg (27.0-31.0); Mean Corpuscular Volume 67.2 fl (78.0-98.0); Mean Platelet Volume 8.7 fL (7.4-10.4); Platelet Count 517 10x3/uL (130-400); RBC Distribution Width 16.7 % (11.5-14.5); Red Blood Cell (RBC) Count 4.93 mill/uL (4.20-5.40); White Blood Cell (WBC) Count 7.9 10x3/uL (4.8-10.8)
[2023-01-27 04:19] LABS: Anion Gap 17 mmol/L (10-20); BUN (Urea Nitrogen) 24 mg/dL (9.8-20.1); Calc. Creatinine Clearance 77 mL/min (70-130); Calcium 9.4 mg/dL (7.8-10.44); Carbon Dioxide 27 mmol/L (23-31); Chloride 100 mmol/L (98-107); Estimated GFR 58; Glucose 246 mg/dL (80-115); Potassium 4.2 mmol/L (3.5-5.1); Sodium 140 mmol/L (136-145)
[2023-01-27] MEDS: Furosemide 40 MG/4 ML VIAL SLOW IVP SCH ×2 (06:02→14:18)
[2023-01-27] MEDS: methylPREDNISolone Sod Succ 40 MG VIAL IVP SCH ×2 (06:02→12:00)
[2023-01-27] MEDS: Insulin Regular 300 UNITS/3 ML VIAL SC PRN ×2 (06:06→11:39)
[2023-01-27] MEDS: Aspirin 81 mg Enteric Coated Tablet PO SCH (08:33)
[2023-01-27] MEDS: Sacubitril 49 MG/Valsartan 51 MG TABLET PO SCH ×2 (08:33→20:20)
[2023-01-27] MEDS: Famotidine/PF 20 mg/2ml Vial SLOW IVP SCH (08:34)
[2023-01-27] MEDS: Empagliflozin 10 MG TAB PO SCH (08:34)
[2023-01-27] MEDS ORDERED: cefTRIAXone\\ROCEPHIN 2 GM in Sodium Chloride 0.9% 100 ML IVPB SCH (09:00)
[2023-01-27] MEDS ORDERED: Azithromycin 500 MG in Sodium Chloride 0.9% 250 ML 250 ML IVPB SCH (10:00)
[2023-01-27] MEDS: Mometasone 100 MCG/Formoterol 5 MCG 120 PUFF INHALER INH SCH (18:45)
[2023-01-27] MEDS: Famotidine 20 MG TAB PO SCH (20:20)
[2023-01-27] MEDS: Atorvastatin Calcium 40 MG TAB PO SCH (20:20)
[2023-01-28 04:04] LABS: #Lymphocytes 1.8 thou/uL (1.20-3.40); #Monocytes 0.7 thou/uL (0.11-0.59); %Basophils 0.2 % (0.0-1.0); %Eosinophils 0.1 % (0.0-10.0); %Neutrophils 75.7 % (42.0-75.0); Hemoglobin 9.8 g/dL (12.0-16.0); Mean Corpuscular HGB CONC 30.6 g/dL (32.0-36.0); Mean Corpuscular Hemoglobin 20.5 pg (27.0-31.0); Platelet Count 492 10x3/uL (130-400); RBC Distribution Width 16.7 % (11.5-14.5); Red Blood Cell (RBC) Count 4.77 mill/uL (4.20-5.40); White Blood Cell (WBC) Count 10.6 10x3/uL (4.8-10.8)
[2023-01-28 04:28] LABS: Anion Gap 14 mmol/L (10-20); BUN (Urea Nitrogen) 35 mg/dL (9.8-20.1); Calc. Creatinine Clearance 80 mL/min (70-130); Calcium 9.2 mg/dL (7.8-10.44); Carbon Dioxide 29 mmol/L (23-31); Chloride 103 mmol/L (98-107); Estimated GFR 65; Glucose 151 mg/dL (80-115); Potassium 3.4 mmol/L (3.5-5.1); Sodium 143 mmol/L (136-145)
[2023-01-28] MEDS: Furosemide 40 MG/4 ML VIAL SLOW IVP SCH (05:16)
[2023-01-28] MEDS ORDERED: Potassium Chloride 20 MEQ TAB PO SCH (08:00)
[2023-01-28] MEDS: Mometasone 100 MCG/Formoterol 5 MCG 120 PUFF INHALER INH SCH ×2 (08:15→19:00)
[2023-01-28] MEDS: Furosemide 40 MG TAB PO SCH (09:19)
[2023-01-28] MEDS: Spironolactone 25 MG TAB PO SCH (09:19)
[2023-01-28] MEDS: predniSONE 20 MG TAB PO SCH (09:19)
[2023-01-28] MEDS: Aspirin 81 mg Enteric Coated Tablet PO SCH (09:20)
[2023-01-28] MEDS: Famotidine 20 MG TAB PO SCH ×2 (09:20→20:27)
[2023-01-28] MEDS: Sacubitril 49 MG/Valsartan 51 MG TABLET PO SCH ×2 (09:20→20:26)
[2023-01-28] MEDS: Empagliflozin 10 MG TAB PO SCH (09:20)
[2023-01-28] MEDS: Insulin Regular 300 UNITS/3 ML VIAL SC PRN (18:19)
[2023-01-28] MEDS: Albuterol HFA (OR) 200 PUFF INH INH SCH (19:00)
[2023-01-28] MEDS: Atorvastatin Calcium 40 MG TAB PO SCH (20:26)
[2023-01-29] MEDS: Albuterol HFA (OR) 200 PUFF INH INH SCH ×2 (00:24→07:20)
[2023-01-29 05:06] LABS: #Lymphocytes 2.1 thou/uL (1.20-3.40); #Monocytes 0.6 thou/uL (0.11-0.59); #Neutrophils 5.5 thou/uL (1.40-6.50); %Basophils 0.5 % (0.0-1.0); %Eosinophils 0.5 % (0.0-10.0); %Lymphocytes 25.4 % (21.0-51.0); %Monocytes 7.4 % (0.0-10.0); %Neutrophils 66.1 % (42.0-75.0); Hemoglobin 9.7 g/dL (12.0-16.0); Mean Corpuscular HGB CONC 30.5 g/dL (32.0-36.0); Mean Corpuscular Hemoglobin 20.5 pg (27.0-31.0); Mean Corpuscular Volume 67.1 fl (78.0-98.0); Mean Platelet Volume 8.9 fL (7.4-10.4); Platelet Count 469 10x3/uL (130-400); Red Blood Cell (RBC) Count 4.74 mill/uL (4.20-5.40); White Blood Cell (WBC) Count 8.3 10x3/uL (4.8-10.8)
[2023-01-29 05:26] LABS: Anion Gap 13 mmol/L (10-20); BUN (Urea Nitrogen) 38 mg/dL (9.8-20.1); Calc. Creatinine Clearance 67 mL/min (70-130); Calcium 8.8 mg/dL (7.8-10.44); Carbon Dioxide 28 mmol/L (23-31); Chloride 101 mmol/L (98-107); Estimated GFR 53; Glucose 222 mg/dL (80-115); Potassium 3.4 mmol/L (3.5-5.1); Sodium 139 mmol/L (136-145)
[2023-01-29] MEDS: Mometasone 100 MCG/Formoterol 5 MCG 120 PUFF INHALER INH SCH (07:20)
[2023-01-29] MEDS ORDERED: Potassium Chloride 20 MEQ TAB PO SCH (08:00)
[2023-01-29] MEDS: Famotidine 20 MG TAB PO SCH (09:30)
[2023-01-29] MEDS: predniSONE 20 MG TAB PO SCH (09:30)
[2023-01-29] MEDS: Spironolactone 25 MG TAB PO SCH (09:30)
[2023-01-29] MEDS: Furosemide 40 MG TAB PO SCH (09:30)
[2023-01-29] MEDS: Sacubitril 49 MG/Valsartan 51 MG TABLET PO SCH (09:30)
[2023-01-29] MEDS: Aspirin 81 mg Enteric Coated Tablet PO SCH (09:30)
[2023-01-29] MEDS: Empagliflozin 10 MG TAB PO SCH (09:31)
[2023-01-29 11:24] VITALS: BP 139/70; TEMP 98.2
== END 2023-01-29 12:10 | disposition home or self-care (01) | DRG 208 ==
LOC: ERS 08:35 → CCU 08:41 → 2NO 01-27 14:30
PROVIDERS: ADMIT Family Medicine; ATTEND Family Medicine
PROC: 5A1935Z Respiratory Ventilation, Less than 24 Consecutive Hours (ICD-10-PCS; principal; 2023-01-26)
PROC: 0D9670Z Drainage of Stomach with Drainage Device, Via Natural or Artificial Opening (ICD-10-PCS; 2023-01-26)
DX: J96.01 Acute respiratory failure with hypoxia (principal); I50.43 Acute on chronic combined systolic (congestive) and diastolic (congestive) heart failure; J44.1 Chronic obstructive pulmonary disease with (acute) exacerbation; Z20.822 Contact with and (suspected) exposure to COVID-19; I25.5 Ischemic cardiomyopathy; I11.0 Hypertensive heart disease with heart failure; E78.5 Hyperlipidemia, unspecified; I34.0 Nonrheumatic mitral (valve) insufficiency; E11.9 Type 2 diabetes mellitus without complications; I25.10 Atherosclerotic heart disease of native coronary artery without angina pectoris; D64.9 Anemia, unspecified; R94.31 Abnormal electrocardiogram [ECG] [EKG]; F41.0 Panic disorder [episodic paroxysmal anxiety]; Z78.1 Physical restraint status; Z88.5 Allergy status to narcotic agent; Z88.2 Allergy status to sulfonamides; Z91.018 Allergy to other foods; Z79.82 Long term (current) use of aspirin; Z79.84 Long term (current) use of oral hypoglycemic drugs; Z98.51 Tubal ligation status; Z89.412 Acquired absence of left great toe; Z87.891 Personal history of nicotine dependence
CPT/HCPCS: 31500; 36415; 36416; 36600; 51702; 71045; 71275; 80048; 80053; 81003; 82553; 82805; 83605; 83880; 84484; 85025; 87040; 87086; 93005; 93306; 94002; 94640; 94644; 94664; 96365; 96367; 96368; 96375; 96376; 99292; J0456; J0692; J0696; J1650; J1815; J1940; J2920; J3010; J3490; J7050; J7512; J7611; J7620; Q9967; S0028; U0002

== ENCOUNTER 2023-02-01 10:34 | Outpatient (CLI) | payer MEDICARE, OTHER | END 2023-02-01 10:35 | disposition home or self-care (01) | LOC: LABBT 10:34 | PROVIDERS: ATTEND Thoracic Surgery (Cardiothoracic Vascular Surgery) | DX: Z01.810 Encounter for preprocedural cardiovascular examination (principal); I25.10 Atherosclerotic heart disease of native coronary artery without angina pectoris; I50.9 Heart failure, unspecified | CPT/HCPCS: 93005; 93010 ==

== ENCOUNTER 2025-09-28 09:38 | Inpatient (IN) | payer MEDICARE ==
[2025-09-28 10:16] LABS: #Basophils 0.03 10x3/uL (0.0-0.2); #Eosinophils 0.04 10x3/uL (0.0-0.7); #Monocytes 0.50 10x3/uL (0.11-0.59); #Neutrophils 6.87 10x3/uL (1.40-6.50); %Basophils 0.4 % (0.0-1.0); %Eosinophils 0.5 % (0.0-10.0); %Lymphocytes 9.4 % (21.0-51.0); %Monocytes 6.1 % (0.0-10.0); %Neutrophils 83.1 % (42.0-75.0); Hematocrit 32.1 % (36.0-47.0); Hemoglobin 9.0 g/dL (12.0-16.0); Mean Corpuscular Hemoglobin 21.1 pg (27.0-31.0); Mean Corpuscular Volume 75.4 fL (78.0-98.0); Platelet Count 448 10x3/uL (130-400); Red Blood Cell (RBC) Count 4.26 mill/uL (4.20-5.40); White Blood Cell (WBC) Count 8.26 10x3/uL (4.8-10.8)
[2025-09-28 10:27] LABS: ALT (SGPT) 10 U/L (Less than 34); AST (SGOT) 18 U/L (11-34); Albumin 3.2 g/dL (3.1-4.5); Alkaline Phosphatase 133 U/L (40-110); Anion Gap 18 mmol/L (10-20); BUN (Urea Nitrogen) 28 mg/dL (9.8-20.1); Bilirubin, Total 2.0 mg/dL (0.3-1.2); Calc. Creatinine Clearance 0 mL/min (70-130); Calcium 8.8 mg/dL (7.8-10.44); Carbon Dioxide 33 mmol/L (23-31); Chloride 96 mmol/L (98-107); Globulin 3.2 g/dL (2.4-3.5); Glucose 182 mg/dL (80-115); Potassium 3.5 mmol/L (3.5-5.1); Sodium 143 mmol/L (136-145)
[2025-09-28 10:40] LABS: Anisocytosis SLIGHT = 6-15 cells HPF (0-5); Burr Cells SLIGHT = 2-5 cells HPF (0-1); Macrocytosis SLIGHT = 6-15 cells HPF (0-5); Platelet Adequacy Comment Platelets Increased; Polychromasia SLIGHT = 2-3 cells HPF (0-2)
[2025-09-28] MEDS ORDERED: Melatonin 3 MG TAB PO PRN (13:00)
[2025-09-28] MEDS ORDERED: Glucagon 1 MG/ML KIT IM PRN (13:00)
[2025-09-28] MEDS ORDERED: Acetaminophen 325 MG TAB PO PRN (13:00)
[2025-09-28] MEDS ORDERED: Senokot S 8.6-50 MG TAB PO PRN (13:00)
[2025-09-28] MEDS ORDERED: Dextrose 50% Abboject 50 ML SYRINGE SLOW IVP PRN (13:00)
[2025-09-28] MEDS: Bumetanide 1 MG/4 ML VIAL IVP SCH ×2 (13:51)
[2025-09-28 13:59] LABS: Magnesium 1.9 mg/dL (1.6-2.6)
[2025-09-28] MEDS ORDERED: FLU (Fluad Triv) 25-26 (65UP)PF 45 MCG/0.5 ML Syringe IM ONE (14:00)
[2025-09-28] MEDS ORDERED: PNEUMOC 20-VAL CONJ-DIP CRM/PF 0.5 ML SYRINGE IM ONE (14:00)
[2025-09-28] MEDS ORDERED: Bumetanide 1 MG/4 ML VIAL IVP SCH (14:00)
[2025-09-28 14:56] VITALS: BMI 33.0
[2025-09-28] MEDS ORDERED: Nitroglycerin 0.4 MG TAB (25 Tab Bottle) SL PRN (15:20)
[2025-09-28] MEDS: Mometasone 100 MCG/Formoterol 5 MCG 120 PUFF INHALER INH SCH (18:27)
[2025-09-28] MEDS: TICAGRELOR 90 MG TABLET PO SCH (20:26)
[2025-09-28] MEDS: ALPRAZolam 0.5 MG TAB PO SCH (20:26)
[2025-09-28] MEDS: Sacubitril 49 MG/Valsartan 51 MG TABLET PO SCH (20:26)
[2025-09-28] MEDS: Famotidine 20 MG TAB PO SCH (20:26)
[2025-09-28] MEDS: Carvedilol 3.125 MG TAB PO SCH (20:26)
[2025-09-29 05:23] LABS: #Basophils Less than 0.03 10x3/uL (0.0-0.2); #Eosinophils Less than 0.03 10x3/uL (0.0-0.7); #Monocytes 0.67 10x3/uL (0.11-0.59); #Neutrophils 10.49 10x3/uL (1.40-6.50); %Basophils 0.1 % (0.0-1.0); %Eosinophils 0.0 % (0.0-10.0); %Lymphocytes 5.1 % (21.0-51.0); %Monocytes 5.7 % (0.0-10.0); %Neutrophils 88.4 % (42.0-75.0); Hematocrit 30.2 % (36.0-47.0); Hemoglobin 8.2 g/dL (12.0-16.0); Mean Corpuscular Hemoglobin 20.9 pg (27.0-31.0); Mean Corpuscular Volume 77.0 fL (78.0-98.0); Platelet Count 449 10x3/uL (130-400); Red Blood Cell (RBC) Count 3.92 mill/uL (4.20-5.40); White Blood Cell (WBC) Count 11.85 10x3/uL (4.8-10.8)
[2025-09-29 05:34] LABS: Anion Gap 14 mmol/L (10-20); BUN (Urea Nitrogen) 30 mg/dL (9.8-20.1); Calc. Creatinine Clearance 79 mL/min (70-130); Calcium 8.3 mg/dL (7.8-10.44); Carbon Dioxide 36 mmol/L (23-31); Chloride 96 mmol/L (98-107); Glucose 235 mg/dL (80-115); Potassium 3.3 mmol/L (3.5-5.1); Sodium 143 mmol/L (136-145)
[2025-09-29] MEDS: Bumetanide 1 MG/4 ML VIAL IVP SCH (06:14)
[2025-09-29] MEDS: Mometasone 100 MCG/Formoterol 5 MCG 120 PUFF INHALER INH SCH (06:58)
[2025-09-29] MEDS: predniSONE 20 MG TAB PO SCH (08:38)
[2025-09-29] MEDS: Aspirin 81 mg Enteric Coated Tablet PO SCH (08:38)
[2025-09-29] MEDS: BuPROPion XL 150 MG ER.TAB PO SCH (08:38)
[2025-09-29] MEDS: Enoxaparin 40 MG (0.4 mL) SYRINGE SC SCH (08:39)
[2025-09-29] MEDS ORDERED: Guaifenesin DM 100-10/5 ML UDCUP PO PRN (11:15)
[2025-09-30 05:54] LABS: #Basophils Less than 0.03 10x3/uL (0.0-0.2); #Eosinophils Less than 0.03 10x3/uL (0.0-0.7); #Monocytes 0.79 10x3/uL (0.11-0.59); #Neutrophils 8.13 10x3/uL (1.40-6.50); %Basophils 0.1 % (0.0-1.0); %Eosinophils 0.0 % (0.0-10.0); %Lymphocytes 7.6 % (21.0-51.0); %Monocytes 8.1 % (0.0-10.0); %Neutrophils 83.8 % (42.0-75.0); Hematocrit 30.3 % (36.0-47.0); Hemoglobin 8.0 g/dL (12.0-16.0); Mean Corpuscular Hemoglobin 20.6 pg (27.0-31.0); Mean Corpuscular Volume 78.1 fL (78.0-98.0); Platelet Count 401 10x3/uL (130-400); Red Blood Cell (RBC) Count 3.88 mill/uL (4.20-5.40); White Blood Cell (WBC) Count 9.71 10x3/uL (4.8-10.8)
[2025-09-30 06:15] LABS: Anion Gap 16 mmol/L (10-20); BUN (Urea Nitrogen) 29 mg/dL (9.8-20.1); Calc. Creatinine Clearance 82 mL/min (70-130); Calcium 8.5 mg/dL (7.8-10.44); Carbon Dioxide 34 mmol/L (23-31); Chloride 99 mmol/L (98-107); Glucose 160 mg/dL (80-115); Iron 18 ug/dL (50-170); Iron Binding Capacity, Total 343 mcg/dL (265-497); Magnesium 1.9 mg/dL (1.6-2.6); Potassium 4.1 mmol/L (3.5-5.1); Sodium 145 mmol/L (136-145)
[2025-10-01 04:49] LABS: Anion Gap 17 mmol/L (10-20); BUN (Urea Nitrogen) 29 mg/dL (9.8-20.1); Calc. Creatinine Clearance 87 mL/min (70-130); Calcium 8.5 mg/dL (7.8-10.44); Carbon Dioxide 33 mmol/L (23-31); Chloride 100 mmol/L (98-107); Glucose 179 mg/dL (80-115); Magnesium 1.9 mg/dL (1.6-2.6); Potassium 3.5 mmol/L (3.5-5.1); Sodium 146 mmol/L (136-145)
[2025-10-01] MEDS ORDERED: Sacubitril 49 MG/Valsartan 51 MG TABLET PO SCH (09:44)
[2025-10-01] MEDS ORDERED: Carvedilol 3.125 MG TAB PO SCH (09:44)
[2025-10-01] MEDS: Carvedilol 6.25 MG TAB PO SCH (12:10)
[2025-10-01 16:17] VITALS: BP 151/70; TEMP 98.5
== END 2025-10-01 18:04 | disposition home or self-care (01) | DRG 291 ==
LOC: ERS 09:38 → 2NO 11:44
PROVIDERS: ADMIT Family Medicine; ATTEND Internal Medicine
DX: I11.0 Hypertensive heart disease with heart failure (principal); I50.23 Acute on chronic systolic (congestive) heart failure; J96.01 Acute respiratory failure with hypoxia; J44.1 Chronic obstructive pulmonary disease with (acute) exacerbation; I47.20 Ventricular tachycardia, unspecified; E11.9 Type 2 diabetes mellitus without complications; E78.5 Hyperlipidemia, unspecified; I25.5 Ischemic cardiomyopathy; I25.10 Atherosclerotic heart disease of native coronary artery without angina pectoris; I34.0 Nonrheumatic mitral (valve) insufficiency; J45.909 Unspecified asthma, uncomplicated; E66.9 Obesity, unspecified; Z98.890 Other specified postprocedural states; Z95.1 Presence of aortocoronary bypass graft; Z88.8 Allergy status to other drugs, medicaments and biological substances; Z88.2 Allergy status to sulfonamides; Z88.5 Allergy status to narcotic agent; Z95.5 Presence of coronary angioplasty implant and graft; Z89.422 Acquired absence of other left toe(s); Z87.891 Personal history of nicotine dependence; Z98.51 Tubal ligation status; Z68.32 Body mass index [BMI] 32.0-32.9, adult; Z79.82 Long term (current) use of aspirin; Z79.899 Other long term (current) drug therapy
CPT/HCPCS: 36415; 36416; 71045; 80048; 80053; 82728; 83540; 83550; 83735; 83880; 84484; 85025; 93005; 93010; 93306; 94664; 94760; 96374; 96375; 96376; J1650; J1815; J2919; J3490; J7512

== ENCOUNTER 2025-10-14 13:07 | Inpatient (IN) | payer MEDICARE ==
[2025-10-14 16:31] LABS: #Basophils Less than 0.03 10x3/uL (0.0-0.2); #Eosinophils Less than 0.03 10x3/uL (0.0-0.7); #Monocytes 0.30 10x3/uL (0.11-0.59); #Neutrophils 7.31 10x3/uL (1.40-6.50); %Basophils 0.1 % (0.0-1.0); %Eosinophils 0.2 % (0.0-10.0); %Lymphocytes 10.0 % (21.0-51.0); %Monocytes 3.5 % (0.0-10.0); %Neutrophils 85.8 % (42.0-75.0); Hematocrit 33.7 % (36.0-47.0); Hemoglobin 9.5 g/dL (12.0-16.0); Mean Corpuscular Hemoglobin 20.7 pg (27.0-31.0); Mean Corpuscular Volume 73.6 fL (78.0-98.0); Platelet Count 290 10x3/uL (130-400); Red Blood Cell (RBC) Count 4.58 mill/uL (4.20-5.40); White Blood Cell (WBC) Count 8.52 10x3/uL (4.8-10.8)
[2025-10-14 16:33] LABS: Bacteria/HPF None Seen HPF (None Seen); CAUTI Indications for Culture Pelvic or flank pain; Glucose, Urine (Dipstick) Normal (Negative); Leukocyte Negative Leu/uL (Negative); Protein, Urine (Dipstick) 300 mg/dL (Neg-Trace); RBC/HPF 0-3 HPF (0-3); Specific Gravity, Urine 1.020 (1.002-1.036); WBC/HPF 0-3 HPF (0-3)
[2025-10-14 16:37] LABS: Urine Culture Reflex No No
[2025-10-14 18:07] LABS: ALT (SGPT) 15 U/L (Less than 34); AST (SGOT) 18 U/L (11-34); Albumin 3.0 g/dL (3.1-4.5); Alkaline Phosphatase 127 U/L (40-110); Anion Gap 13 mmol/L (10-20); BUN (Urea Nitrogen) 19 mg/dL (9.8-20.1); Bilirubin, Total 1.2 mg/dL (0.3-1.2); Calc. Creatinine Clearance 0 mL/min (70-130); Calcium 8.4 mg/dL (7.8-10.44); Carbon Dioxide 34 mmol/L (23-31); Chloride 96 mmol/L (98-107); Globulin 3.0 g/dL (2.4-3.5); Glucose 144 mg/dL (80-115); Lipase 9 U/L (8-78); Potassium 3.3 mmol/L (3.5-5.1); Sodium 140 mmol/L (136-145)
[2025-10-14] MEDS ORDERED: Acetaminophen 325 MG TAB PO PRN (19:02)
[2025-10-14] MEDS ORDERED: Glucagon 1 MG/ML KIT IM PRN (19:34)
[2025-10-14] MEDS ORDERED: Dextrose 50% Abboject 50 ML SYRINGE SLOW IVP PRN (19:34)
[2025-10-14 21:18] VITALS: BMI 32.3
[2025-10-14] MEDS: Sacubitril 49 MG/Valsartan 51 MG TABLET PO SCH (21:33)
[2025-10-14] MEDS: TICAGRELOR 90 MG TABLET PO SCH (21:33)
[2025-10-14] MEDS: ALPRAZolam 0.25 MG TAB PO SCH (21:34)
[2025-10-14] MEDS: Bumetanide 1 MG/4 ML VIAL IVP SCH (21:45)
[2025-10-15] MEDS: Pantoprazole 40 MG DR.TAB PO SCH (03:43)
[2025-10-15] MEDS: Bumetanide 1 MG/4 ML VIAL IVP SCH (05:29)
[2025-10-15 05:31] LABS: Anion Gap 17 mmol/L (10-20); BUN (Urea Nitrogen) 19 mg/dL (9.8-20.1); Calc. Creatinine Clearance 107 mL/min (70-130); Calcium 8.2 mg/dL (7.8-10.44); Carbon Dioxide 32 mmol/L (23-31); Chloride 98 mmol/L (98-107); Glucose 169 mg/dL (80-115); Magnesium 2.4 mg/dL (1.6-2.6); Potassium 3.4 mmol/L (3.5-5.1); Sodium 144 mmol/L (136-145)
[2025-10-15] MEDS: Mometasone 100 MCG/Formoterol 5 MCG 120 PUFF INHALER INH SCH (07:11)
[2025-10-15] MEDS: CO Q-10 CAPSULE 100 MG PO SCH (08:41)
[2025-10-15] MEDS: Carvedilol 6.25 MG TAB PO SCH (08:41)
[2025-10-15] MEDS: Aspirin 81 mg Enteric Coated Tablet PO SCH (08:42)
[2025-10-15] MEDS: BuPROPion XL 150 MG ER.TAB PO SCH (08:42)
[2025-10-15] MEDS: guaiFENesin/DM ER PO SCH (19:49)
[2025-10-16 05:33] LABS: Anion Gap 15 mmol/L (10-20); BUN (Urea Nitrogen) 21 mg/dL (9.8-20.1); Calc. Creatinine Clearance 123 mL/min (70-130); Calcium 8.7 mg/dL (7.8-10.44); Carbon Dioxide 33 mmol/L (23-31); Chloride 100 mmol/L (98-107); Glucose 120 mg/dL (80-115); Potassium 3.6 mmol/L (3.5-5.1); Sodium 144 mmol/L (136-145)
[2025-10-16] MEDS: Spironolactone 25 MG TAB PO SCH (11:39)
[2025-10-16] MEDS: Bumetanide 1 MG/4 ML VIAL IVP SCH (14:56)
[2025-10-17 05:57] LABS: Anion Gap 16 mmol/L (10-20); BUN (Urea Nitrogen) 21 mg/dL (9.8-20.1); Calc. Creatinine Clearance 117 mL/min (70-130); Calcium 8.2 mg/dL (7.8-10.44); Carbon Dioxide 36 mmol/L (23-31); Chloride 99 mmol/L (98-107); Glucose 179 mg/dL (80-115); Potassium 3.4 mmol/L (3.5-5.1); Sodium 148 mmol/L (136-145)
[2025-10-17] MEDS: Spironolactone 25 MG TAB PO SCH (08:59)
[2025-10-17] MEDS: Pantoprazole 40 MG DR.TAB PO SCH (09:00)
[2025-10-17] MEDS ORDERED: Carvedilol 6.25 MG TAB PO SCH (09:01)
[2025-10-17] MEDS: Carvedilol 3.125 MG TAB PO SCH (09:43)
[2025-10-17] MEDS: Potassium Bicarbonate/Cit Ac 20 MEQ TAB PO SCH (11:50)
[2025-10-18] MEDS: Calcium Carbonate 500 MG ChewTAB PO PRN (00:56)
[2025-10-18 05:56] LABS: Hematocrit 32.3 % (36.0-47.0); Hemoglobin 8.6 g/dL (12.0-16.0); Mean Corpuscular Hemoglobin 20.4 pg (27.0-31.0); Mean Corpuscular Volume 76.7 fL (78.0-98.0); Platelet Count 322 10x3/uL (130-400); Red Blood Cell (RBC) Count 4.21 mill/uL (4.20-5.40); White Blood Cell (WBC) Count 9.31 10x3/uL (4.8-10.8)
[2025-10-18 06:13] LABS: Anion Gap 14 mmol/L (10-20); BUN (Urea Nitrogen) 21 mg/dL (9.8-20.1); Calc. Creatinine Clearance 111 mL/min (70-130); Calcium 8.8 mg/dL (7.8-10.44); Carbon Dioxide 38 mmol/L (23-31); Chloride 96 mmol/L (98-107); Glucose 92 mg/dL (80-115); Potassium 3.4 mmol/L (3.5-5.1); Sodium 145 mmol/L (136-145)
[2025-10-18] MEDS: Potassium Bicarbonate/Cit Ac 20 MEQ TAB PO SCH (13:36)
[2025-10-19 05:57] LABS: Anion Gap 17 mmol/L (10-20); BUN (Urea Nitrogen) 24 mg/dL (9.8-20.1); Calc. Creatinine Clearance 80 mL/min (70-130); Calcium 9.0 mg/dL (7.8-10.44); Carbon Dioxide 40 mmol/L (23-31); Chloride 93 mmol/L (98-107); Glucose 189 mg/dL (80-115); Potassium 4.0 mmol/L (3.5-5.1); Sodium 146 mmol/L (136-145)
[2025-10-19 16:21] LABS: Magnesium 1.8 mg/dL (1.6-2.6)
[2025-10-19] MEDS: Magnesium Sulfate In Water 4 GM in Premix 1 BAG IVPB SCH (18:36)
[2025-10-20 06:20] LABS: Anion Gap 19 mmol/L (10-20); BUN (Urea Nitrogen) 25 mg/dL (9.8-20.1); Calc. Creatinine Clearance 73 mL/min (70-130); Calcium 9.0 mg/dL (7.8-10.44); Carbon Dioxide 43 mmol/L (23-31); Chloride 86 mmol/L (98-107); Glucose 186 mg/dL (80-115); Iron 16 ug/dL (50-170); Magnesium 2.5 mg/dL (1.6-2.6); Potassium 4.0 mmol/L (3.5-5.1); Sodium 144 mmol/L (136-145)
[2025-10-20] MEDS: predniSONE 20 MG TAB PO SCH (12:27)
[2025-10-21 05:14] LABS: Anion Gap 20 mmol/L (10-20); BUN (Urea Nitrogen) 30 mg/dL (9.8-20.1); Calc. Creatinine Clearance 68 mL/min (70-130); Calcium 8.8 mg/dL (7.8-10.44); Carbon Dioxide 40 mmol/L (23-31); Chloride 85 mmol/L (98-107); Glucose 125 mg/dL (80-115); Potassium 3.6 mmol/L (3.5-5.1); Sodium 141 mmol/L (136-145)
[2025-10-21] MEDS: predniSONE 20 MG TAB PO SCH (08:42)
[2025-10-22 05:32] LABS: #Basophils Less than 0.03 10x3/uL (0.0-0.2); #Eosinophils 0.07 10x3/uL (0.0-0.7); #Monocytes 0.75 10x3/uL (0.11-0.59); #Neutrophils 7.58 10x3/uL (1.40-6.50); %Basophils 0.2 % (0.0-1.0); %Eosinophils 0.7 % (0.0-10.0); %Lymphocytes 13.2 % (21.0-51.0); %Monocytes 7.7 % (0.0-10.0); %Neutrophils 77.6 % (42.0-75.0); Hematocrit 35.0 % (36.0-47.0); Hemoglobin 10.0 g/dL (12.0-16.0); Mean Corpuscular Hemoglobin 20.6 pg (27.0-31.0); Mean Corpuscular Volume 72.2 fL (78.0-98.0); Platelet Count 519 10x3/uL (130-400); Red Blood Cell (RBC) Count 4.85 mill/uL (4.20-5.40); White Blood Cell (WBC) Count 9.77 10x3/uL (4.8-10.8)
[2025-10-22 05:50] LABS: Anion Gap 18 mmol/L (10-20); BUN (Urea Nitrogen) 35 mg/dL (9.8-20.1); Calc. Creatinine Clearance 56 mL/min (70-130); Calcium 8.7 mg/dL (7.8-10.44); Carbon Dioxide 43 mmol/L (23-31); Chloride 84 mmol/L (98-107); Glucose 116 mg/dL (80-115); Magnesium 1.9 mg/dL (1.6-2.6); Potassium 3.6 mmol/L (3.5-5.1); Sodium 141 mmol/L (136-145)
[2025-10-22 05:56] LABS: Microcytosis SLIGHT = 6-15 cells HPF (0-5); Platelet Adequacy Comment Platelets Increased; Polychromasia SLIGHT = 2-3 cells HPF (0-2)
[2025-10-22] MEDS ORDERED: Magnesium Sulfate/D5W 1 GM/100 ML BAG IVPB SCH (09:15)
[2025-10-22] MEDS: Magnesium 2 GM/50 ML(in water) 2 GM in Premix 1 BAG IVPB SCH (11:23)
[2025-10-22 12:57] VITALS: BMI 27.3
[2025-10-22 16:20] VITALS: TEMP 97.5
[2025-10-22 19:52] VITALS: BP 115/58
== END 2025-10-22 19:49 | disposition home or self-care (01) | DRG 291 ==
LOC: ERS 13:07 → OBS 19:30 → OBSVTOIN 10-15 10:41
PROVIDERS: ADMIT Internal Medicine; ATTEND Internal Medicine
DX: I11.0 Hypertensive heart disease with heart failure (principal); I50.23 Acute on chronic systolic (congestive) heart failure; J96.01 Acute respiratory failure with hypoxia; I47.20 Ventricular tachycardia, unspecified; E87.3 Alkalosis; N17.9 Acute kidney failure, unspecified; E87.0 Hyperosmolality and hypernatremia; I25.5 Ischemic cardiomyopathy; I25.10 Atherosclerotic heart disease of native coronary artery without angina pectoris; E11.9 Type 2 diabetes mellitus without complications; E78.5 Hyperlipidemia, unspecified; E66.01 Morbid (severe) obesity due to excess calories; I34.0 Nonrheumatic mitral (valve) insufficiency; D50.9 Iron deficiency anemia, unspecified; Z89.412 Acquired absence of left great toe; Z95.5 Presence of coronary angioplasty implant and graft; Z98.890 Other specified postprocedural states; Z87.891 Personal history of nicotine dependence; Z90.710 Acquired absence of both cervix and uterus; Z98.51 Tubal ligation status; Z95.1 Presence of aortocoronary bypass graft; Z88.2 Allergy status to sulfonamides; Z79.4 Long term (current) use of insulin; I37.1 Nonrheumatic pulmonary valve insufficiency; Z88.6 Allergy status to analgesic agent; Z91.0110 Allergy to milk products, unspecified; Z88.5 Allergy status to narcotic agent; Z85.41 Personal history of malignant neoplasm of cervix uteri; E87.6 Hypokalemia; Z79.82 Long term (current) use of aspirin; Z79.899 Other long term (current) drug therapy; J44.89 Other specified chronic obstructive pulmonary disease; Z68.27 Body mass index [BMI] 27.0-27.9, adult
CPT/HCPCS: 36415; 36416; 71045; 71046; 80048; 80053; 81001; 82728; 83540; 83690; 83735; 83880; 84484; 85025; 85027; 85379; 93005; 93306; 94640; 94760; 96374; 96375; 96376; 97139; G0378; J1815; J2916; J2919; J3475; J3490; J7512